=== PATIENT | male | born 1940 | race Caucasian/White ===

== ENCOUNTER 2017-12-30 08:33 | Inpatient (IN) | payer MEDICARE ==
[2017-12-30] MEDS ORDERED: Norepinephrine 8 MG/0.9% NS 250 ML ONE (08:39)
[2017-12-30 09:11] LABS: ALT (SGPT) 8 U/L (8-55); AST (SGOT) 13 U/L (5-34); Albumin 3.3 g/dL (3.4-4.8); Alkaline Phosphatase 51 U/L (40-150); Anion Gap 13 mmol/L (10-20); BUN (Urea Nitrogen) 18 mg/dL (8.4-25.7); Bilirubin, Total 0.7 mg/dL (0.2-1.2); Calc. Creatinine Clearance 0 mL/min (70-130); Calcium 8.4 mg/dL (7.8-10.44); Carbon Dioxide 24 mmol/L (23-31); Chloride 106 mmol/L (98-107); Estimated GFR-MDRD 75; Globulin 2.4 g/dL (2.4-3.5); Glucose 119 mg/dL (83-110); Hemoglobin 12.5 g/dL (14.0-18.0); Mean Corpuscular HGB CONC 34.1 g/dL (32.0-36.0); Mean Corpuscular Hemoglobin 31.6 pg (27.0-31.0); Mean Corpuscular Volume 92.6 fL (78.0-98.0); Mean Platelet Volume 6.9 fL (7.4-10.4); Platelet Count 214 thou/uL (130-400); Potassium 4.6 mmol/L (3.5-5.1); Protein, Total 5.7 g/dL (5.8-8.1); RBC Distribution Width 12.3 % (11.5-14.5); Red Blood Cell (RBC) Count 3.94 mill/uL (4.70-6.10); Sodium 138 mmol/L (136-145); White Blood Cell (WBC) Count 26.7 thou/uL (4.8-10.8)
[2017-12-30 09:13] LABS: Base Excess-Venous 2.4 mmol/L (0 (+/- 2.5)); Bicarbonate (HCO3v) 33.2 mmol/L (1.0-85.0); CO2 Tension (PvCO2) 85.4 mmHg (41.0-51.0); Calcium, Ionized 1.18 mmol/L (1.12-1.32); Hemoglobin - Calc 13.3 g/dL (12.0-18.0); O2 Tension (PvO2) 27.8 mmHg (35.0-45.0); Potassium 4.8 mmol/L (3.4-4.7); T. Carbon Dioxide 35.8 mmol/L (1.0-85.0); pH (Venous) 7.197 (7.35-7.45); vO2 Saturation-calc 36.5 % (94-98)
[2017-12-30 09:22] LABS: CKMB 1.5 ng/mL (0-6.6); Troponin I Less than 0.010 ng/mL (< 0.028)
[2017-12-30 09:29] LABS: Band 20 % (5-11); Eosinophils 6 % (0-10); Hypochromia SLIGHT = 6-15 cells (100X) (0-5/hpf); Lymphocytes 2 % (21-51); MDiff Complete? YES; Microcytosis SLIGHT = 6-15 cells (100X) (0-5/hpf); Monocytes 2 % (0-10); Neutrophil 70 % (42-75); PLT Morphology Comment Appears Adequate
[2017-12-30 09:29] LABS: Actual Bicarbonate (HCO3a) 21.4 mEq/L (22-28); Base Excess (BEa) -5.7 mEq/L (-2.0 to +3.0); CO2 Tension 48.3 mmHg (35.0-45.0); Carboxyhemoglobin (COHb) 0.4 gm% (0.0-3.0); Hemoglobin (Hb) 12.9 g/dL (14.0-18.0); O2 Tension (PaO2) 283.8 mmHg (> 70.0); pH, Arterial 7.26 (7.35-7.45)
[2017-12-30 09:30] LABS: ALV-art Gradient 368.825 (0-20); Analyzer IN Cardio ER; Potassium - ABG Lab 4.1 mmol/L (3.70-5.30); Puncture Site B
[2017-12-30] MEDS ORDERED: Vancomycin HCl 1 GM in Premix Bag 1 BAG IVPB SCH (10:00)
[2017-12-30 10:33] LABS: Bilirubin Negative (Negative); Blood, Urine Negative (Negative); Clarity CLEAR (Clear); Glucose, Urine (Dipstick) Negative (Negative); Leukocyte Negative (Negative); Nitrite Negative (Negative); Protein, Urine (Dipstick) Negative (Neg-Trace); Specific Gravity, Urine 1.024 (1.002-1.036); Urobilinogen 0.2 mg/dL (0.2-1.0)
[2017-12-30] MEDS ORDERED: Fentanyl 100 MCG/2 ML VIAL ONE ×2 (10:35→10:55)
[2017-12-30] MEDS ORDERED: fentaNYL Citrate/PF 2,000 MCG in Sodium Chloride 0.9% 60 ML IV SCH ×2 (10:40→12:24)
--- NOTE | 2017-12-30 10:42 | RAD ---
CHEST 1 VIEW: HISTORY: A 77-year-old male with a history of respiratory distress. FINDINGS: NG tube and endotracheal tubes were in position. There is bilateral vascular congestion with some in creased linear and interstitial markings bilaterally, possible small interstitial edema. No signific ant pleural effusion. No confluent pneumonia. IMPRESSION: Nasogastric tube and endotracheal tube in position. Bilateral vascular congestion and interstitial c hanges which could represent some chronic component or could represent some early acute interstitial edema or atypical pneumonitis. POS: [facility]
[2017-12-30] MEDS ORDERED: Cefepime 2 GM VIAL ONE (10:52)
[2017-12-30] MEDS ORDERED: Lorazepam 2 MG/ML VIAL ONE (10:59)
--- NOTE | 2017-12-30 11:36 | CT ---
BRAIN CT WITHOUT IV CONTRAST: HISTORY: A 77-year-old male with a history of respiratory distress and intubation. FINDINGS: Endotracheal tube in place. There is some mucus and minimal fluid in the posterior nasopharynx. The re is some mild atrophy and chronic white matter ischemic change. No mass or midline shift. No acut e hemorrhage. IMPRESSION: No significant acute intracranial process. No mass or bleed. POS: [facility]
[2017-12-30] MEDS ORDERED: Dextrose 50% Abboject 50 ML SYRINGE SLOW IVP PRN (11:40)
[2017-12-30] MEDS ORDERED: Dextrose 5% in Water 1,000 ML IV PRN (11:40)
[2017-12-30] MEDS ORDERED: VANCOMYCIN IVPB PRN (11:48)
--- NOTE | 2017-12-30 12:09 | CT ---
CERVICAL SPINE CT SCAN WITHOUT IV CONTRAST: HISTORY: A 77-year-old male with a history of neck injury, respiratory distress, and intubation. FINDINGS: NG tube and endotracheal tube are in place. There is some fluid or mucus within the posterior nasoph arynx. Multilevel disk-osteophytosis and facet arthrosis changes are noted, evidence for cervical sp ondylosis. No evidence for acute fracture or fact dislocation. Heterogeneous bone demineralization. Bilateral carotid artery calcified plaques in the neck. Approximately 2.2 cm diameter nodule in th e upper right lobe of the thyroid. IMPRESSION: Cervical spondylosis. No acute fracture or facet dislocation. A 2.2 cm diameter nodule in the upper right lobe of the thyroid. Bilateral carotid artery calcified plaques in the neck. POS: [facility]
[2017-12-30] MEDS ORDERED: Fentanyl BOLUS 250 ML IVPB PRN (12:24)
[2017-12-30] MEDS ORDERED: Propofol BOLUS 1,000 MG/100 ML VIAL IV PRN (12:24)
[2017-12-30] MEDS ORDERED: DISCONTINUE PREVIOUS NARCOTIC PAIN MEDICATIONS AND BENZODIAZEPINES FS SCH (12:24)
--- NOTE | 2017-12-30 13:05 | HP ---
DATE OF CONSULTATION: 12/30/2017 CHIEF COMPLAINT: Found down. HISTORY OF PRESENT ILLNESS: Patient is a 77-year-old male who has a remote history of alcohol abuse and drug abuse well over a decade ago who has a chronic underlying COPD which is oxygen dependent. Petty cloud generally uses 2 liters of nasal cannula oxygen at home. Yesterday, he was with his friend an d roommate playing golf. He was feeling more short of breath and required higher levels of oxygen. In the evening, when they got home, he was somewhat somnolent, still requiring the higher levels of t he oxygen. This morning, his roommate heard him gurgling and when he went in to check on him, he was on the floor wearing his CPAP mask, but it had pulled away from the connection and was not receiving any pressure or oxygen. He was unarousable, so he called EMS. On their arrival, the patient was "g uppy breathing" and gasping. They subsequently intubated the patient after giving him some sedation. He was then transported to the hospital. While here, he has had some hypotension and has required the use of a norepinephrine drip in order to maintain adequate blood pressures. He has actually come awake a bit and appears to be fairly interactive. EMS also reported blood pressure dropped while [facility] were transporting the patient. He did receive 2 liters of fluid resuscitation before pressors wer e initiated. Presently, his blood pressure is maintaining. Of note, the patient is unable to give a ny history because of his sedated status and most of the information has come from discussion with [facility] ER physician, the medical record and the patient's friend who has been his roommate for a number of years and knows the situation extremely well. REVIEW OF SYSTEMS: Not specifically obtainable, but the roommate indicates that he believes he has b een eating and drinking well. He has had no problems with his bowels or bladder other than he genera lly does tend toward constipation. PAST MEDICAL HISTORY: Notable for prostate cancer, obstructive sleep apnea, osteoarthritis, diabetes mellitus. He also reports that he thinks the patient has something enlarged in his neck, but he is not sure if it is a lymph node or gland. There is thyroid. PAST SURGICAL HISTORY: He has had lumbar spine surgery, cataractectomy, knee surgeries. FAMILY HISTORY: Unknown. SOCIAL HISTORY: The patient was a former smoker, has not smoked cigarettes in over a year. He is __ ___(00:00), but weaning down his nicotine concentrations. He has no alcohol use for the last 11 year s, but is prior to that an alcoholic and also has a prior drug user, but has not done any of that in over a decade as well. The patient does have a brother in [place] and his roommate is attempting to get the information so that we might be able to contact him. Nothing else is known about the moreno ent's code status. ALLERGIES: PENICILLIN. HOME MEDICATIONS: Unknown, but believed to be metformin. PHYSICAL EXAMINATION: VITAL SIGNS: Blood pressure was a low of 60/37, most recently at 110 systolic. Respirations steady at the vent, heart rate 60s. GENERAL APPEARANCE: The patient is sedated and intubated. HEENT: Pupils are constricted as oropharyngeal tube or ET tube rather endotracheal tube in place. NECK: Supple and symmetric. CARDIOVASCULAR: Regular, without murmurs. LUNGS: Generally clear anteriorly with faint scattered rales on the right. ABDOMEN: Soft, nondistended, positive bowel sounds. EXTREMITIES: Cool to touch with slightly diminished pulses, but he does have capillary refill. NEUROLOGIC: As stated, the patient is sedated. SKIN: Reveals a skin tear at the left elbow. He also has a small ecchymosis and abrasion on the pos terior right heel at the Achilles insertion. LABORATORY DATA: White count is 26.7, hemoglobin 12.5, platelets 214. Initial ABG 7.197, pCO2 of 85 .4, pO2 27.8. A repeat after intubation pH or after 20 minutes, pH is 7.26, pCO2 of 48.3, pO2 283. Sodium 138, potassium 4.6, chloride 106, CO2 24, BUN 18, creatinine 0.97, glucose 119. Lactic acid 2 .0, calcium 8.4, AST 13, ALT 8. BNP 226.5, albumin 3.3. Urinalysis is negative. Chest x-ray shows vascular congestion, interstitial changes which could represent chronic component or could represent some early acute interstitial edema or atypical pneumonitis. CT scan of the brain negative. CT of t he C-spine reportedly negative. Formal report is still pending. EKG [facility] IMPRESSION AND PLAN: 1. Acute respiratory failure with hypercapnia. The patient is intubated and will continue on ventil ator support. We will transfer to the ICU. Continue fentanyl drip for sedation. Consult Pulmonary Critical Care. 2. Chronic obstructive pulmonary disease. The patient will get nebulizer treatments and ventilator support. 3. Sepsis. Patient has a significantly elevated white blood cell count with respiratory failure, al though his lactic acid initially was not significantly elevated. He has been volume resuscitated and on pressors. We will cover with the vancomycin and cefepime and follow up cultures. 4. Diabetes mellitus by history. We will continue with Accu-Cheks and sliding scale insulin. 5. Disposition. We will try to get information on the patient's brother, so that we can contact him for any further decision making.
--- NOTE | 2017-12-30 13:12 | OP-2 ---
INDICATION: Hypotension, on pressors with peripheral line. PROCEDURE AIR CONDITIONING EQUIPMENT MECHANIC: Dr. Avinash Ibrahim, Dr. Livia Huffman. ATTENDING PHYSICIAN: Dr. Mckinney. Consent was obtained prior to the procedure from the patient's brother. Indications, risks, and benefits were explained at length. PROCEDURE SUMMARY: A timeout was performed. Hands were washed prior to the procedure. I wore surgical hat, mask, protective eyewear, full gown, and sterile gloves throughout the procedure. The patient was placed in Trendelenburg and left chest region and neck were prepped using chlorhexidine scrub and draped in a sterile fashion. The medial and lateral heads of the sternocleidomastoid muscles were identified, as was the carotid pulse. Internal jugular vein was identified using ultrasound. Anesthesia was achieved using local 1% lidocaine. Using real-time had a plain guidance, an introducer needle was inserted into the internal jugular vein under direct ultrasound visualization. Venous blood was withdrawn. The syringe was removed. The wire was fed through the syringe into the introducer needle. The guidewire was visualized in the internal jugular with ultrasound. A small incision was made at the surface of the skin with a scalpel and the introducer needle was exchanged for a dilator over the guidewire. After appropriate dilation was obtained, the dilator was exchanged over the wire for a 3-port central venous catheter. The wire was removed and the catheter was sutured in place at the hub. A sterile adaptive shield was placed over the catheter insertion site. The patient tolerated the procedure without any hemodynamic compromise. At the time of procedure completion, all ports were aspirated and flushed properly. Post-procedure with chest x-ray showed no pneumothorax and the tip of the catheter appropriately placed. ESTIMATED BLOOD LOSS: 15 mL. MTDD
[2017-12-30] MEDS: Sodium Chloride 0.9% 1,000 ML IV SCH (13:16)
--- NOTE | 2017-12-30 13:31 | RAD ---
FRONTAL RADIOGRAPH CHEST PORTABLE SUPINE: DATE: 12/30/17. TIME: 10:50 a.m. COMPARISON: 12/30/17 at 8:51 a.m. HISTORY: Central line placement. FINDINGS: Supine imaging provided, limiting assessment for pneumothorax and pleural fluid. The left costophren ic angle is incompletely imaged. A large portion of the right lung is not imaged either. Nasogastric tube and endotracheal tube in stable position. Left-sided vascular catheter present, dis kinga tip terminating over the expected location of the proximal SVC. There is atherosclerotic calcifi cation in the aortic arch. IMPRESSION: Lines and tubes as described above. POS: [facility]
[2017-12-30] MEDS ORDERED: Norepinephrine 8 MG/0.9% NS 250 ML IVPB SCH (14:00)
--- NOTE | 2017-12-30 15:35 | CON ---
DATE OF CONSULTATION: 12/30/2017 CONSULTING PHYSICIAN: Preston Wilkins M.D. REASON FOR CONSULTATION: Acute respiratory failure. The following encompassed 35 minutes critical care time. HISTORY OF PRESENT ILLNESS: The patient is a 77-year-old male who was apparently found somnolent at home. He was down on the floor wearing a CPAP mask. EMS was called. Apparently, he was hypotensive . He received fluid. He was intubated and placed on mechanical ventilation. He is now up in the CC U on the ventilator. He is now waking up and able to follow commands. PAST MEDICAL HISTORY: RAMOS, COPD, arthritis, diabetes mellitus, prostate cancer. PAST SURGICAL HISTORY: 1. Lumbar spine surgery 2. Cataract surgery. 3. Knee surgeries. REVIEW OF SYSTEMS: Cannot obtain as patient is intubated. FAMILY MEDICAL HISTORY: Unknown. SOCIAL HISTORY: Former smoker, quit over a year ago, has not used alcohol 11 years, formerly abused some type of substance. ALLERGIES: PENICILLIN. MEDICATIONS AT HOME: Unknown. PHYSICAL EXAMINATION: VITAL SIGNS: Temperature 97, O2 sat 100, pulse 62, blood pressure 134/57, currently on Levophed drip . NEUROLOGIC: He will wake up and follow commands with the hands and feet. HEENT: Remarkable for endotracheal tube present in the oropharynx. NECK: No adenopathy, no JVD. LUNGS: He has mild expiratory wheezing bilaterally. CARDIOVASCULAR: S1, S2 regular. ABDOMEN: Soft, nontender. EXTREMITIES: No clubbing, cyanosis or edema. GENITOURINARY: Normal. LABORATORY DATA: Sodium 143, potassium 4.8, chloride 103, CO2 24, BUN 18, creatinine 0.9, glucose 11 6. BNP 226, pH 7.26, pCO2 48, PO2 283, assist control rate 25, tidal volume 500, PEEP 5, pressure avitia pport 0, FIO2 25%. White cell count 26.7, hematocrit 36.5, platelet count 214. Urinalysis was negat teresa. His chest x-ray shows bilateral chronic interstitial changes. ET tube is in appropriate position. ASSESSMENT: 1. Acute respiratory failure requiring mechanical ventilation. 2. Chronic obstructive pulmonary disease with exacerbation contributing to the acute respiratory moncho lure. 3. Bilateral infiltrative changes versus chronic interstitial changes. 4. Elevated white blood cell count. RECOMMENDATIONS: 1. Continue mechanical ventilation. I have adjusted the settings and orders that he may have an inc reased exhaled time. 2. Increase nebulization frequency. 3. Wean off Levophed as tolerated. 4. Agree with volume infusion and volume infusion and the IV antibiotics. 5. I have added IV steroids.
[2017-12-30] MEDS: Budesonide 0.5 MG/2 ML NEB INH SCH (18:12)
[2017-12-30] MEDS: Lorazepam 2 MG/ML VIAL SLOW IVP PRN (19:43)
[2017-12-30] MEDS ORDERED: Vancomycin HCl 1 GM in Sodium Chloride 0.9% 250 ML 250 ML IVPB SCH (21:00)
[2017-12-31] MEDS: Cefepime 1 GM in Sodium Chloride 0.9% 100 ML IVPB SCH ×3 (00:28→23:59)
[2017-12-31] MEDS: Sodium Chloride 0.9% 1,000 ML IV SCH ×4 (00:30→20:47)
[2017-12-31] MEDS: Propofol 1,000 MG/100 ML VIAL IV PRN ×4 (02:53→20:46)
[2017-12-31 04:12] LABS: #Lymphocytes 0.9 thou/uL (1.20-3.40); #Monocytes 0.6 thou/uL (0.11-0.59); #Neutrophils 18.7 thou/uL (1.40-6.50); %Basophils 0.1 % (0.0-1.0); %Lymphocytes 4.4 % (21.0-51.0); %Monocytes 3.1 % (0.0-10.0); %Neutrophils 92.3 % (42.0-75.0); Hemoglobin 11.9 g/dL (14.0-18.0); Mean Corpuscular HGB CONC 35.3 g/dL (32.0-36.0); Mean Corpuscular Hemoglobin 32.5 pg (27.0-31.0); Mean Platelet Volume 6.9 fL (7.4-10.4); Platelet Count 176 thou/uL (130-400); RBC Distribution Width 12.3 % (11.5-14.5); Red Blood Cell (RBC) Count 3.66 mill/uL (4.70-6.10); White Blood Cell (WBC) Count 20.2 thou/uL (4.8-10.8)
[2017-12-31 04:28] LABS: ALT (SGPT) 8 U/L (8-55); AST (SGOT) 16 U/L (5-34); Albumin 3.2 g/dL (3.4-4.8); Alkaline Phosphatase 44 U/L (40-150); Anion Gap 13 mmol/L (10-20); BUN (Urea Nitrogen) 20 mg/dL (8.4-25.7); Bilirubin, Total 0.5 mg/dL (0.2-1.2); Calc. Creatinine Clearance 74 mL/min (70-130); Calcium 8.2 mg/dL (7.8-10.44); Carbon Dioxide 24 mmol/L (23-31); Chloride 104 mmol/L (98-107); Estimated GFR-MDRD Greater than 90; Globulin 2.8 g/dL (2.4-3.5); Glucose 153 mg/dL (83-110); Potassium 4.2 mmol/L (3.5-5.1); Sodium 137 mmol/L (136-145)
[2017-12-31] MEDS: Budesonide 0.5 MG/2 ML NEB INH SCH ×2 (05:59→18:12)
[2017-12-31 07:03] LABS: CO2 Tension 39.4 mmHg (35.0-45.0); pH, Arterial 7.38 (7.35-7.45)
[2017-12-31 07:04] LABS: Actual Bicarbonate (HCO3a) 22.9 mEq/L (22-28); Base Excess (BEa) -1.9 mEq/L (-2.0 to +3.0); Calcium, Ionized 1.14 mmol/L (1.12-1.30); Carboxyhemoglobin (COHb) 1.2 gm% (0.0-3.0); Hemoglobin (Hb) 13.2 g/dL (14.0-18.0); O2 Tension (PaO2) 66.5 mmHg (> 70.0); Potassium - ABG Lab 4.1 mmol/L (3.70-5.30)
[2017-12-31 07:05] LABS: Puncture Site RR
[2017-12-31] MEDS: Enoxaparin Sodium 40 MG/0.4 ML SYRINGE SC SCH (09:24)
[2017-12-31] MEDS: Pantoprazole 40 MG VIAL IVP SCH (09:25)
--- NOTE | 2017-12-31 09:42 | RAD ---
SEMIUPRIGHT PORTABLE CHEST: HISTORY: A 77-year-old male with a history of respiratory insufficiency. FINDINGS: Endotracheal tube, NG tube, and left central lines are noted in place. Scattered interstitial and li near parenchymal changes noted in the perihilar and infrahilar regions which are more prominent than on the 12/30/17 study raising concern for some subsegmental atelectasis or developing pneumonitis in th e bases. IMPRESSION: Developing bibasilar parenchymal changes since the prior study, evidence for bibasilar pneumonia or p neumonitis or partial atelectasis. POS: [facility]
[2017-12-31] MEDS ORDERED: Lorazepam 2 MG/ML VIAL SLOW IVP SCH (09:50)
[2017-12-31] MEDS: Lorazepam 2 MG/ML VIAL SLOW IVP PRN (09:54)
[2017-12-31] MEDS: Vancomycin HCl 1 GM in Premix Bag 1 BAG IVPB SCH (10:15)
--- NOTE | 2017-12-31 10:51 | PRG ---
DATE OF SERVICE: 12/31/2017 Thirty-five minutes critical care time. SUBJECTIVE: The patient remains intubated on mechanical ventilation. He can become extremely agitat ed at times. PHYSICAL EXAMINATION: VITAL SIGNS: Temperature is 97.8, pulse 77, blood pressure 155/60. A 24-hour intake 1928, output 12 10. HEENT: Unremarkable except for bitemporal wasting. NECK: No JVD. CHEST: Clear without wheezing or rhonchi. CARDIAC: S1 and S2 regular. ABDOMEN: Soft, nontender, nondistended. EXTREMITIES: No clubbing, cyanosis, or edema. LABORATORY DATA: Sodium 137, potassium 4.2, chloride 104, CO2 of 24, BUN 20, creatinine 0.7, glucose 153, pH 7.38, pCO2 of 39, pO2 of 66 on SIMV rate 20, tidal volume 400, PEEP 5, pressure support 10, FiO2 40%. White blood cell count 20, hematocrit 33.7, platelet count 176. X-RAY FINDINGS: The chest x-ray demonstrates perhaps a subtle infiltrate on the left side, very diff icult to . ASSESSMENT: 1. Acute hypoxic respiratory failure requiring mechanical ventilation. 2. Chronic obstructive pulmonary disease with exacerbation. 3. Question of concurrent pneumonia. PLAN: The patient is better. I think he is probably weanable. His Levophed has been stopped. I will plan to put him on CPAP and if he tolerates, go ahead and extubate him. He is continuing on I V antibiotics. I think we can go ahead and decrease his IV fluid rate.
[2017-12-31] MEDS: Nicotine 14 MG PATCH TD SCH (10:52)
[2017-12-31] MEDS: hydrALAZINE 20 MG/ML VIAL SLOW IVP PRN (11:21)
[2017-12-31] MEDS ORDERED: Propofol 1,000 MG/100 ML VIAL IV ONE (11:34)
[2017-12-31] MEDS ORDERED: Ventilator Sedation Protocol 1 EACH FS SCH (11:45)
[2017-12-31] MEDS ORDERED: Fentanyl BOLUS 250 ML IVPB PRN (11:56)
[2017-12-31] MEDS ORDERED: Propofol BOLUS 1,000 MG/100 ML VIAL IV PRN (11:56)
[2017-12-31] MEDS ORDERED: DISCONTINUE PREVIOUS NARCOTIC PAIN MEDICATIONS AND BENZODIAZEPINES FS SCH (11:56)
[2017-12-31] MEDS: HumaLOG 300 UNITS/3 ML VIAL SC PRN ×2 (12:02→18:13)
--- NOTE | 2017-12-31 12:02 | RAD ---
SUPINE FRONTAL CHEST RADIOGRAPH: DATE: 12/31/17. TIME: 11:53 a.m. COMPARISON: 12/31/17, 4:38 a.m. HISTORY: Re-intubated. Respiratory distress. FINDINGS: There is an endotracheal tube projecting over the tracheal air column in proper location just inferio r to the clavicular heads. Nasogastric tube and left vascular catheter again noted. Diffuse increas ed linear interstitial density noted with patchy areas of mild airspace disease suspected in the lung bases. Supine imaging limits assessment for pneumothorax. IMPRESSION: Lines and tubes as above. Extensive interstitial and alveolar opacity as above. POS: [facility]
--- NOTE | 2017-12-31 12:07 | PRG ---
DATE OF PROCEDURE: 12/31/2017 TIME: 11:44 a.m. The patient had to be reintubated, because of agitation that was refractory to sedation with Precedex and benzodiazepines. I intubated him with a 7.5 endotracheal tube with a GlideScope orally using pr opofol as the induction anesthetic agent. The tube was placed 23 cm at the lip. Placement was confi rmed by auscultation. The patient was placed back on sedation protocol. He was given IV thiamin and I suspect this is probably some degree of alcohol or other substance withdrawal.
[2017-12-31 13:30] LABS: CO2 Tension 38.8 mmHg (35.0-45.0)
[2017-12-31 13:31] LABS: Actual Bicarbonate (HCO3a) 23.6 mEq/L (22-28); Base Excess (BEa) -0.9 mEq/L (-2.0 to +3.0); Carboxyhemoglobin (COHb) 1.2 gm% (0.0-3.0); Hemoglobin (Hb) 12.9 g/dL (14.0-18.0); O2 Tension (PaO2) 53.4 mmHg (> 70.0); Potassium - ABG Lab 4.1 mmol/L (3.70-5.30)
[2017-12-31 13:32] LABS: Calcium, Ionized 1.13 mmol/L (1.12-1.30); Puncture Site RR
[2017-12-31] MEDS ORDERED: Norepinephrine 8 MG/0.9% NS 250 ML IVPB SCH (14:00)
--- NOTE | 2017-12-31 14:38 | PDOC.PN ---
- Subjective Encounter Start Date: 12/31/17 Encounter Start Time: 10:15 Patient was extubated prior to my exam. Patient was agitated and that crescendo 'd until he was tachycardic and tachypneic. BP was substantially elevated. His friend brought his home meds and there was nothing of significance that was relevant. He is on Librax, however. Low dose and looks like it might be a taper. His roommate maintains that he does not drink anymore and takes no drugs. He was given a nicotine patch and morphine with no effect. Hydralazine given for BP. No effect. Precedex gtt started and no improvement. Started to initiate Bipap, but Dr. Cook arrived and recommended reintubation. Subsequent to Diprivan and intubation, his vital signs stabilized. - Objective Resuscitation Status: Resuscitation Status FULL:Full Resuscitation Vital Signs & Weight: Vital Signs (12 hours) Temp Pulse Resp BP Pulse Ox 12/31/17 14:00 24 H 12/31/17 12:18 93 38 H 92 L 12/31/17 12:00 97 21 H 93/57 L 12/31/17 11:21 130 H 220/125 H 12/31/17 11:12 23 H 92 L 12/31/17 11:00 98.6 F 12/31/17 09:30 98 20 100 12/31/17 08:47 95 12/31/17 07:42 97.8 F 80 23 H 97 12/31/17 07:00 978.4 F H 12/31/17 06:00 66 147/64 H 12/31/17 05:58 66 21 H 98 12/31/17 04:10 61 12/31/17 04:09 61 20 98 12/31/17 04:00 98.2 F 20 Weight Admit Weight 137 lb 12.623 oz Weight 137 lb 12.623 oz Most Recent Monitor Data Heart Rate from ECG 72 NIBP 91/50 NIBP BP-Mean 61 Respiration from ECG 26 SpO2 96 I&O: 12/30/17 12/31/17 01/01/18 06:59 06:59 06:59 Intake Total 1929.2 380 Output Total 1210 678 Balance 719.2 -298 Result Diagrams: 12/31/17 03:30 12/31/17 03:30 Additional Labs: Accuchecks 12/31/17 12/31/17 12/30/17 11:59 00:34 18:37 POC Glucose 211 H 157 H 151 H Phys Exam - Physical Examination Constitutional: NAD Reintubated Respiratory: no wheezing, no rales Cardiovascular: RRR, no significant murmur Gastrointestinal: soft, no distention, positive bowel sounds Musculoskeletal: no edema Dx/Plan (1) Acute respiratory failure with hypercapnia Code(s): J96.02 - ACUTE RESPIRATORY FAILURE WITH HYPERCAPNIA Status: Acute Comment: Extubated. Very agitated. Symptoms resistent to treatment. Reintubated. (2) Agitation requiring sedation protocol Code(s): R45.1 - RESTLESSNESS AND AGITATION Status: Acute Comment: Failed doses of ativan, morphine and then Pecedex gtt. Reintubated and on Diprivan with good results. (3) COPD (chronic obstructive pulmonary disease) Status: Acute Comment: Nebs, steroids. (4) Diabetes mellitus Code(s): E11.9 - TYPE 2 DIABETES MELLITUS WITHOUT COMPLICATIONS Status: Acute Comment: accucheks and SSI. - Plan Maintain in ICU. Pulmonary/CC following. Continue to support with vent and treat COPD. Time in CC 37 min.
[2018-01-01 05:00] LABS: #Lymphocytes 0.8 thou/uL (1.20-3.40); #Monocytes 0.5 thou/uL (0.11-0.59); %Eosinophils 0.1 % (0.0-10.0); %Neutrophils 89.9 % (42.0-75.0); Hemoglobin 12.3 g/dL (14.0-18.0); Mean Corpuscular HGB CONC 33.9 g/dL (32.0-36.0); Mean Corpuscular Hemoglobin 31.2 pg (27.0-31.0); Mean Corpuscular Volume 91.9 fL (78.0-98.0); Mean Platelet Volume 7.4 fL (7.4-10.4); Platelet Count 191 thou/uL (130-400); RBC Distribution Width 12.6 % (11.5-14.5); Red Blood Cell (RBC) Count 3.96 mill/uL (4.70-6.10); White Blood Cell (WBC) Count 13.3 thou/uL (4.8-10.8)
[2018-01-01 05:05] LABS: ALT (SGPT) 12 U/L (8-55); AST (SGOT) 21 U/L (5-34); Albumin 3.1 g/dL (3.4-4.8); Alkaline Phosphatase 39 U/L (40-150); Anion Gap 11 mmol/L (10-20); BUN (Urea Nitrogen) 21 mg/dL (8.4-25.7); Bilirubin, Total 0.4 mg/dL (0.2-1.2); Calc. Creatinine Clearance 78 mL/min (70-130); Calcium 8.5 mg/dL (7.8-10.44); Carbon Dioxide 24 mmol/L (23-31); Chloride 106 mmol/L (98-107); Estimated GFR-MDRD Greater than 90; Glucose 166 mg/dL (83-110); Potassium 3.6 mmol/L (3.5-5.1); Protein, Total 6.1 g/dL (5.8-8.1); Sodium 137 mmol/L (136-145)
[2018-01-01] MEDS: Propofol 1,000 MG/100 ML VIAL IV PRN ×3 (05:58→20:48)
[2018-01-01] MEDS: Budesonide 0.5 MG/2 ML NEB INH SCH ×2 (06:34→19:16)
[2018-01-01 07:34] LABS: Actual Bicarbonate (HCO3a) 24.1 mEq/L (22-28); Base Excess (BEa) 0.7 mEq/L (-2.0 to +3.0); CO2 Tension 34.8 mmHg (35.0-45.0); Carboxyhemoglobin (COHb) 0.7 gm% (0.0-3.0); Hemoglobin (Hb) 12.4 g/dL (14.0-18.0); O2 Tension (PaO2) 92.8 mmHg (> 70.0); Potassium - ABG Lab 3.5 mmol/L (3.70-5.30); pH, Arterial 7.46 (7.35-7.45)
--- NOTE | 2018-01-01 08:34 | PRG ---
DATE OF SERVICE: 01/01/2018 Thirty-five minutes critical care time. SUBJECTIVE: The patient remains intubated on mechanical ventilation. He is sedated on propofol and Precedex. PHYSICAL EXAMINATION: VITAL SIGNS: His temperature is 97.2 with no fever overnight, pulse 56, blood pressure 140/69. A 24 -hour intake 2307, output 1758. NEUROLOGIC: He will move around when stimulated. HEENT: Pupils react. Sclerae are anicteric. Oropharynx clear. NECK: No JVD. LUNGS: Inspiratory crackles bilaterally. CARDIOVASCULAR: S1, S2, slightly bradycardic. ABDOMEN: Soft, nontender. EXTREMITIES: No edema. LABORATORY DATA: Sodium 137, potassium 3.6, chloride 106, CO2 24, BUN 21, creatinine 0.7, glucose 16 6, AST 21, ALT 12, albumin 3.1, pH 7.46, pCO2 34, pO2 of 92 on SIMV rate 12, tidal volume 500, PEEP 8 , pressure support 10, FiO2 60%. White blood cell count 13.3, hematocrit 36.4, platelet count 191. ASSESSMENT: 1. Acute respiratory failure requiring mechanical ventilation. 2. Chronic obstructive pulmonary disease with exacerbation. 3. Bilateral pneumonia - he has bilateral infiltrates on x-ray. I suspect he probably aspirated at home before he came in and did not show up until the x-ray done yesterday. 4. Encephalopathy with manic features. 5. Hyperglycemia. PLAN: 1. The patient will be started on enteral tube feeds. I have no plans to try to wean him at this ti me until he is over his encephalopathic/withdrawal type symptoms. 2. Start enteral tube feeds with diabetic tube formula. 3. Continue IV antibiotics. 4. Decrease IV steroids. 5. I will update his brother.
[2018-01-01] MEDS: Pantoprazole 40 MG VIAL IVP SCH (10:02)
[2018-01-01] MEDS: Lorazepam 2 MG/ML VIAL SLOW IVP PRN (10:02)
[2018-01-01] MEDS: Enoxaparin Sodium 40 MG/0.4 ML SYRINGE SC SCH (10:02)
[2018-01-01] MEDS: Vancomycin HCl 1 GM in Premix Bag 1 BAG IVPB SCH ×2 (10:03→21:33)
[2018-01-01 10:31] LABS: Vancomycin, Trough 7.2 ug/mL
[2018-01-01] MEDS: HumaLOG 300 UNITS/3 ML VIAL SC PRN (11:05)
[2018-01-01] MEDS: Cefepime 1 GM in Sodium Chloride 0.9% 100 ML IVPB SCH ×2 (12:48→23:22)
[2018-01-01] MEDS: Nicotine 14 MG PATCH TD SCH (12:49)
[2018-01-01] MEDS: Sodium Chloride 0.9% 1,000 ML IV SCH (13:01)
--- NOTE | 2018-01-01 14:08 | PQF ---
DATE: 01-01-18 ATTN: DR. ASIF SOSA Please exercise your independent, professional judgment in responding to the clarification form. Clinical indicators are provided on the bottom of this form for your review Please check appropriate box(s): [ xx ] Aspiration Pneumonia [ ] Empirically treating Gram Negative Pneumonia [ ] Other diagnosis [ ] Unable to determine In addition, please specify: Present on Admission (POA): [ x ] Yes [ ] No [ ] Unable to determine For continuity of documentation, please document condition throughout progress notes and discharge summary. Thank You. CLINICAL INDICATORS - SIGNS / SYMPTOMS / LABS ER: PT WAS FOUND DOWN ON GROUND WITH UNKNOWN DOWN TIME, HX COPD, AMS, FORMER SMOKER CONSULT NOTE DR. MEDINA 01-01-18: BILATERAL PNEUMONIA, HE HAS BILATERAL INFILTRATES ON X RAY. I SUSPECT HE PROBABLY ASPIRATED AT HOME BEFORE HE CAME IN AND DID NOT SHOW UP UNTIL THE XRAY DONE YESTERDAY TEMP: 12-30-17: 99.8 ER: 100.2, 100.2, 100.3, 100.4 WBC: 12-30-17: 26.7, 12-30-17: 20.2 01-01-18: 13.3 RISK FACTORS: H&P: COPD, SEPSIS, HX OF SMOKING TREATMENTS: 12-30-17: MAXIPIME, IVF PULMONARY CONSULT (This form is maintained as a part of the permanent medical record) 2014 [employer]. All Rights Reserved AQUILINO [email or web address] Office: [phone] [email or web address]
--- NOTE | 2018-01-01 21:46 | PDOC.PN ---
- Subjective Encounter Start Date: 01/01/18 Encounter Start Time: 13:45 Subjective: pt intubated - Objective Resuscitation Status: Resuscitation Status FULL:Full Resuscitation Vital Signs & Weight: Vital Signs (12 hours) Temp Pulse Resp BP Pulse Ox 01/01/18 20:00 98.5 F 20 01/01/18 19:19 98 01/01/18 19:17 60 01/01/18 19:16 98 01/01/18 15:14 59 L 143/63 H 01/01/18 15:13 60 16 96 01/01/18 12:00 97.7 F 20 01/01/18 10:32 59 L 147/69 H 01/01/18 10:31 55 L 13 97 01/01/18 10:00 28 H Weight Admit Weight 137 lb 12.623 oz Weight 137 lb 12.623 oz Most Recent Monitor Data Heart Rate from ECG 67 NIBP 150/73 NIBP BP-Mean 85 Respiration from ECG 17 SpO2 95 I&O: 12/31/17 01/01/18 01/02/18 06:59 06:59 06:59 Intake Total 1929.2 2307.7 Output Total 1210 1758 1010 Balance 719.2 549.7 -1010 Result Diagrams: 01/01/18 04:25 01/01/18 04:25 Additional Labs: Accuchecks 01/01/18 01/01/18 11:05 00:05 POC Glucose 178 H 157 H Phys Exam - Physical Examination Neck: no nodes, no JVD, supple, full ROM Respiratory: no wheezing, no rales, no rhonchi, wheezing present, clear to auscultation bilateral Cardiovascular: RRR, no significant murmur, no rub, gallop, irregular Dx/Plan (1) Acute respiratory failure with hypercapnia Code(s): J96.02 - ACUTE RESPIRATORY FAILURE WITH HYPERCAPNIA Status: Acute Comment: Extubated. Very agitated. Symptoms resistent to treatment. Reintubated. (2) Agitation requiring sedation protocol Code(s): R45.1 - RESTLESSNESS AND AGITATION Status: Acute Comment: Failed doses of ativan, morphine and then Pecedex gtt. Reintubated and on Diprivan with good results. (3) COPD (chronic obstructive pulmonary disease) Status: Acute Comment: Nebs, steroids. (4) Diabetes mellitus Code(s): E11.9 - TYPE 2 DIABETES MELLITUS WITHOUT COMPLICATIONS Status: Acute Comment: accucheks and SSI. (5) Alcohol abuse Code(s): F10.10 - ALCOHOL ABUSE, UNCOMPLICATED Status: Acute - Plan pt intubated -: continue abx for aspiration pneumonia * . Review of Systems - Review of Systems Other: unable to obtain - Medications/Allergies Allergies/Adverse Reactions: Allergies Allergy/AdvReac Type Severity Reaction Status Date / Time Penicillins Allergy Verified 12/30/17 09:59 Medications: Current Medications Albuterol/Ipratropium (Duoneb) 3 ml NEB [id number] [facility] Last Admin: 01/01/18 19:16 Dose: 3 ml Budesonide (Pulmicort Neb Solution) 0.5 mg INH BID-RT [facility] Last Admin: 01/01/18 19:16 Dose: 0.5 mg Dextrose/Water (Dextrose 50%) 25 gm SLOW IVP PRN PRN PRN Reason: Hypoglycemia Enoxaparin Sodium (Lovenox) 40 mg SC 0900 [facility] Last Admin: 01/01/18 10:02 Dose: 40 mg Glucagon (Glucagon) 1 mg IM PRN PRN PRN Reason: Hypoglycemia Hydralazine HCl (Apresoline) 10 mg SLOW IVP Q4H PRN PRN Reason: Hypertension Last Admin: 12/31/17 11:21 Dose: 10 mg Cefepime HCl 1 gm/ Sodium (Chloride) 100 mls @ 200 mls/hr IVPB 1200,2359 [facility] Last Admin: 01/01/18 12:48 Dose: 100 mls Dextrose/Water (D5w) 1,000 mls @ 0 mls/hr IV .Q0M PRN PRN Reason: Hypoglycemia Sodium Chloride (Normal Saline 0.9%) 1,000 mls @ 70 mls/hr IV .[id number] [facility] Last Admin: 01/01/18 13:01 Dose: 1,000 mls Dexmedetomidine HCl 200 mcg/ (Sodium Chloride) 50 mls @ 0 mls/hr IVPB INF [facility]; Protocol Last Admin: 01/01/18 20:39 Dose: 50 mls Thiamine HCl 100 mg/ Sodium (Chloride) 51 mls @ 100 mls/hr IVPB 1200 [facility] Last Admin: 01/01/18 13:20 Dose: 51 mls Fentanyl Citrate 2,000 mcg/ (Sodium Chloride) 100 mls @ 0 mls/hr IV INF [facility]; Protocol Stop: 01/30/18 11:56 Fentanyl Citrate (Fentanyl Bolus) 250 mls @ 0 mls/hr IVPB PRN PRN PRN Reason: Breakthrough pain/agitation Stop: 01/30/18 11:56 Norepinephrine Bitartrate (Levophed) 250 mls @ 0 mls/hr IVPB INF [facility]; Protocol Last Admin: 12/31/17 14:37 Dose: 250 mls Vancomycin HCl 1 gm/ Device 200 mls @ 200 mls/hr IVPB 1000,2200 [facility] Last Admin: 01/01/18 21:33 Dose: 200 mls Insulin Human Lispro (Humalog) 0 units SC .MILD SLIDING SCALE PRN PRN Reason: Mild Correctional Scale Last Admin: 01/01/18 11:05 Dose: 2 unit Lorazepam (Ativan) 2 mg SLOW IVP Q1H PRN PRN Reason: Breakthrough agitation Stop: 01/30/18 11:56 Last Admin: 01/01/18 10:02 Dose: 2 mg Methylprednisolone Sodium Succinate (Solu-Medrol) 30 mg IVP Q6HR [facility] Last Admin: 01/01/18 18:42 Dose: 30 mg Miscellaneous Medication (Pharmacy To Dose) 1 each IVPB PRN PRN PRN Reason: Pharmacy to dose Morphine Sulfate (Morphine Sulfate) 2 mg SLOW IVP Q1H PRN PRN Reason: BREAKTHROUGH PAIN/AGITATION Stop: 01/30/18 11:56 Nicotine (Nicoderm Patch) 14 mg TD 1200 [facility] Last Admin: 01/01/18 12:49 Dose: 14 mg Discontinue Previous Narcotic Pain Medications And Benzodiazepines 1 each FS .ONE [facility] Stop: 01/30/18 11:56 Pantoprazole Sodium (Protonix) 40 mg IVP DAILY [facility] Last Admin: 01/01/18 10:02 Dose: 40 mg Propofol (Diprivan) 1,000 mg IV INF PRN; Protocol PRN Reason: TO ACHIEVE GOAL RASS Stop: 01/30/18 11:56 Last Admin: 01/01/18 20:48 Dose: 1,000 mg Propofol (Diprivan Bolus) 20 mg IV Q5MIN PRN PRN Reason: BREAKTHROUGH AGITATION Stop: 01/30/18 11:56 Sodium Chloride (Flush - Normal Saline) 10 ml IVF Q12HR [facility] Last Admin: 01/01/18 21:33 Dose: 10 ml Sodium Chloride (Flush - Normal Saline) 10 ml IVF PRN PRN PRN Reason: Saline Flush
[2018-01-02] MEDS: Propofol 1,000 MG/100 ML VIAL IV PRN ×3 (05:30→17:45)
[2018-01-02] MEDS: Sodium Chloride 0.9% 1,000 ML IV SCH ×2 (05:39→17:47)
[2018-01-02 05:57] LABS: #Lymphocytes 0.5 thou/uL (1.20-3.40); #Monocytes 0.4 thou/uL (0.11-0.59); %Eosinophils 0.1 % (0.0-10.0); %Monocytes 4.1 % (0.0-10.0); %Neutrophils 90.8 % (42.0-75.0); Hemoglobin 12.8 g/dL (14.0-18.0); Mean Corpuscular HGB CONC 34.7 g/dL (32.0-36.0); Mean Corpuscular Hemoglobin 31.5 pg (27.0-31.0); Mean Corpuscular Volume 90.9 fL (78.0-98.0); Mean Platelet Volume 7.6 fL (7.4-10.4); Platelet Count 217 thou/uL (130-400); RBC Distribution Width 12.6 % (11.5-14.5); Red Blood Cell (RBC) Count 4.05 mill/uL (4.70-6.10); White Blood Cell (WBC) Count 9.9 thou/uL (4.8-10.8)
[2018-01-02 06:10] LABS: ALT (SGPT) 13 U/L (8-55); AST (SGOT) 15 U/L (5-34); Albumin 3.1 g/dL (3.4-4.8); Alkaline Phosphatase 36 U/L (40-150); Anion Gap 10 mmol/L (10-20); BUN (Urea Nitrogen) 18 mg/dL (8.4-25.7); Bilirubin, Total 0.4 mg/dL (0.2-1.2); Calc. Creatinine Clearance 79 mL/min (70-130); Calcium 8.3 mg/dL (7.8-10.44); Carbon Dioxide 25 mmol/L (23-31); Chloride 109 mmol/L (98-107); Estimated GFR-MDRD Greater than 90; Globulin 2.8 g/dL (2.4-3.5); Glucose 206 mg/dL (83-110); Potassium 3.2 mmol/L (3.5-5.1); Protein, Total 5.9 g/dL (5.8-8.1); Sodium 141 mmol/L (136-145)
[2018-01-02] MEDS: Budesonide 0.5 MG/2 ML NEB INH SCH ×2 (08:02→18:27)
[2018-01-02] MEDS ORDERED: Pancrelipase DR 12000 1 CAP PER TUBE PRN (10:31)
[2018-01-02] MEDS ORDERED: Sodium Bicarbonate Tab 325 MG TAB PER TUBE PRN (10:32)
--- NOTE | 2018-01-02 11:23 | PRG ---
DATE OF SERVICE: 01/02/2018 Thirty-five minutes critical care time. Mr. Lombardi remains intubated on mechanical ventilation. There have been no acute change to his condi tion overnight. He is requiring a Precedex drip and propofol for sedation. PHYSICAL EXAMINATION: VITAL SIGNS: His pulse is 65, blood pressure 125/48, O2 sat 95%, respiratory rate 26. HEENT: Unremarkable. NECK: No adenopathy or JVD. LUNGS: Crackles in both bases. CARDIOVASCULAR: S1, S2 regular. ABDOMEN: Soft, nontender. EXTREMITIES: No edema. LABORATORY DATA: PH 7.45, pCO2 of 33, pO2 of 66. His potassium level on his ABG was 3.1. Of note, laboratory data is not fully available at the time of this dictation because the [facility] system is down. His current ventilator settings are SIMV rate 12, tidal volume 500, PEEP 8, pressure support 10, FiO2 35%. ASSESSMENT: 1. Chronic obstructive pulmonary disease exacerbation. 2. Presumed drug withdrawal. 3. Respiratory failure requiring mechanical ventilation. PLAN: Hopefully, we will be able to wean the patient's sedation soon. For the time being his mechan ical ventilation settings are appropriate. He is starting tube feeds. Further disposition to follow .
--- NOTE | 2018-01-02 11:24 | RAD ---
PORTABLE CHEST: Date: 01-02-18 Provided Clinical History: Respiratory insufficiency. FINDINGS: Comparison 12-31-17 Cardiac and mediastinal silhouette is unchanged in appearance. Left sided central line, endotracheal tube and partially visualized enteric catheter appear in similar positions. Bibasilar patchy parenchy mal opacities are noted. There is no pleural fluid or pneumothorax apparent. IMPRESSION: Stable radiographic appearance of the chest. POS: [facility]
[2018-01-02 11:34] LABS: pH, Arterial 7.45 (7.35-7.45)
[2018-01-02 11:35] LABS: Actual Bicarbonate (HCO3a) 22.7 mEq/L (22-28); Base Excess (BEa) -0.6 mEq/L (-2.0 to +3.0); CO2 Tension 33.3 mmHg (35.0-45.0); Calcium, Ionized 1.17 mmol/L (1.12-1.30); Carboxyhemoglobin (COHb) 0.7 gm% (0.0-3.0); Hemoglobin (Hb) 13.2 g/dL (14.0-18.0); O2 Tension (PaO2) 65.5 mmHg (> 70.0); Potassium - ABG Lab 3.12 mmol/L (3.70-5.30)
[2018-01-02 11:36] LABS: ALV-art Gradient 142.425 (0-20); Puncture Site RRA
[2018-01-02] MEDS: Enoxaparin Sodium 40 MG/0.4 ML SYRINGE SC SCH (11:57)
[2018-01-02] MEDS: Pantoprazole 40 MG VIAL IVP SCH (11:57)
[2018-01-02] MEDS: Vancomycin HCl 1 GM in Premix Bag 1 BAG IVPB SCH ×2 (11:58→22:23)
[2018-01-02] MEDS: Cefepime 1 GM in Sodium Chloride 0.9% 100 ML IVPB SCH ×2 (12:17→23:54)
[2018-01-02] MEDS: Nicotine 14 MG PATCH TD SCH (12:17)
[2018-01-02] MEDS: Lorazepam 2 MG/ML VIAL SLOW IVP PRN (12:18)
--- NOTE | 2018-01-02 14:10 | PDOC.PN ---
- Subjective Encounter Start Date: 01/02/18 Encounter Start Time: 10:30 Subjective: pt awake intubated - Objective Resuscitation Status: Resuscitation Status FULL:Full Resuscitation Vital Signs & Weight: Vital Signs (12 hours) Temp Pulse Resp Pulse Ox 01/02/18 14:00 25 H 01/02/18 13:05 62 01/02/18 12:00 98.6 F 20 01/02/18 10:00 25 H 01/02/18 08:00 98.4 F 85 25 H 01/02/18 07:00 98.4 F 01/02/18 04:00 97.7 F 01/02/18 02:59 60 97 Weight Admit Weight 137 lb 12.623 oz Weight 137 lb 12.623 oz Most Recent Monitor Data Heart Rate from ECG 61 NIBP 145/64 NIBP BP-Mean 110 Respiration from ECG 24 SpO2 98 I&O: 01/01/18 01/02/18 01/03/18 06:59 06:59 06:59 Intake Total 2307.7 1176 60 Output Total 1758 1390 925 Balance 549.7 214 865 Result Diagrams: 01/02/18 05:40 01/02/18 05:40 Additional Labs: Accuchecks 01/01/18 21:31 POC Glucose 183 H Phys Exam - Physical Examination Neck: no nodes, no JVD, supple, full ROM Respiratory: no wheezing, no rales, no rhonchi, wheezing present, clear to auscultation bilateral Cardiovascular: RRR, no significant murmur, no rub, gallop, irregular Gastrointestinal: soft, non-tender, positive bowel sounds did follow some commands Dx/Plan (1) Acute respiratory failure with hypercapnia Code(s): J96.02 - ACUTE RESPIRATORY FAILURE WITH HYPERCAPNIA Status: Acute Comment: Extubated. Very agitated. Symptoms resistent to treatment. Reintubated. (2) Agitation requiring sedation protocol Code(s): R45.1 - RESTLESSNESS AND AGITATION Status: Acute Comment: Failed doses of ativan, morphine and then Pecedex gtt. Reintubated and on Diprivan with good results. (3) COPD (chronic obstructive pulmonary disease) Status: Acute Comment: Nebs, steroids. (4) Diabetes mellitus Code(s): E11.9 - TYPE 2 DIABETES MELLITUS WITHOUT COMPLICATIONS Status: Acute Comment: accucheks and SSI. (5) Alcohol abuse Code(s): F10.10 - ALCOHOL ABUSE, UNCOMPLICATED Status: Acute - Plan will continue abx -: pt more awake follows some commands -: will continue abx * . Review of Systems - Review of Systems Other: unable to obtain - Medications/Allergies Allergies/Adverse Reactions: Allergies Allergy/AdvReac Type Severity Reaction Status Date / Time Penicillins Allergy Verified 12/30/17 09:59 Medications: Current Medications Albuterol/Ipratropium (Duoneb) 3 ml NEB [id number] [facility] Last Admin: 01/02/18 09:50 Dose: 3 ml Lipase/Protease/Amylase ([place] [id number]) 1 cap PER TUBE ASDIR PRN PRN Reason: TUBE OCCLUSION [place] Budesonide (Pulmicort Neb Solution) 0.5 mg INH BID-RT [facility] Last Admin: 01/02/18 08:02 Dose: 0.5 mg Dextrose/Water (Dextrose 50%) 25 gm SLOW IVP PRN PRN PRN Reason: Hypoglycemia Enoxaparin Sodium (Lovenox) 40 mg SC 0900 [facility] Last Admin: 01/02/18 11:57 Dose: Not Given Glucagon (Glucagon) 1 mg IM PRN PRN PRN Reason: Hypoglycemia Hydralazine HCl (Apresoline) 10 mg SLOW IVP Q4H PRN PRN Reason: Hypertension Last Admin: 12/31/17 11:21 Dose: 10 mg Cefepime HCl 1 gm/ Sodium (Chloride) 100 mls @ 200 mls/hr IVPB 1200,2359 [facility] Last Admin: 01/02/18 12:17 Dose: 100 mls Dextrose/Water (D5w) 1,000 mls @ 0 mls/hr IV .Q0M PRN PRN Reason: Hypoglycemia Sodium Chloride (Normal Saline 0.9%) 1,000 mls @ 70 mls/hr IV .[id number] [facility] Last Admin: 01/02/18 05:39 Dose: Not Given Dexmedetomidine HCl 200 mcg/ (Sodium Chloride) 50 mls @ 0 mls/hr IVPB INF [facility]; Protocol Last Admin: 01/02/18 13:19 Dose: 50 mls Thiamine HCl 100 mg/ Sodium (Chloride) 51 mls @ 100 mls/hr IVPB 1200 [facility] Last Admin: 01/02/18 12:17 Dose: 51 mls Fentanyl Citrate 2,000 mcg/ (Sodium Chloride) 100 mls @ 0 mls/hr IV INF [facility]; Protocol Stop: 01/30/18 11:56 Fentanyl Citrate (Fentanyl Bolus) 250 mls @ 0 mls/hr IVPB PRN PRN PRN Reason: Breakthrough pain/agitation Stop: 01/30/18 11:56 Norepinephrine Bitartrate (Levophed) 250 mls @ 0 mls/hr IVPB INF [facility]; Protocol Last Admin: 12/31/17 14:37 Dose: 250 mls Vancomycin HCl 1 gm/ Device 200 mls @ 200 mls/hr IVPB 1000,2200 [facility] Last Admin: 01/02/18 11:58 Dose: Not Given Insulin Human Lispro (Humalog) 0 units SC .MILD SLIDING SCALE PRN PRN Reason: Mild Correctional Scale Last Admin: 01/01/18 11:05 Dose: 2 unit Lorazepam (Ativan) 2 mg SLOW IVP Q1H PRN PRN Reason: Breakthrough agitation Stop: 01/30/18 11:56 Last Admin: 01/02/18 12:18 Dose: 2 mg Methylprednisolone Sodium Succinate (Solu-Medrol) 30 mg IVP Q6HR [facility] Last Admin: 01/02/18 12:17 Dose: 30 mg Miscellaneous Medication (Pharmacy To Dose) 1 each IVPB PRN PRN PRN Reason: Pharmacy to dose Morphine Sulfate (Morphine Sulfate) 2 mg SLOW IVP Q1H PRN PRN Reason: BREAKTHROUGH PAIN/AGITATION Stop: 01/30/18 11:56 Nicotine (Nicoderm Patch) 14 mg TD 1200 [facility] Last Admin: 01/02/18 12:17 Dose: 14 mg Discontinue Previous Narcotic Pain Medications And Benzodiazepines 1 each FS .ONE [facility] Stop: 01/30/18 11:56 Pantoprazole Sodium (Protonix) 40 mg IVP DAILY [facility] Last Admin: 01/02/18 11:57 Dose: Not Given Propofol (Diprivan) 1,000 mg IV INF PRN; Protocol PRN Reason: TO ACHIEVE GOAL RASS Stop: 01/30/18 11:56 Last Admin: 01/02/18 12:34 Dose: 1,000 mg Propofol (Diprivan Bolus) 20 mg IV Q5MIN PRN PRN Reason: BREAKTHROUGH AGITATION Stop: 01/30/18 11:56 Sodium Bicarbonate (Bicarbonate, Sodium) 650 mg PER TUBE ASDIR PRN PRN Reason: TUBE OCCLUSION TX Sodium Chloride (Flush - Normal Saline) 10 ml IVF Q12HR [facility] Last Admin: 01/02/18 11:58 Dose: Not Given Sodium Chloride (Flush - Normal Saline) 10 ml IVF PRN PRN PRN Reason: Saline Flush
[2018-01-02] MEDS: HumaLOG 300 UNITS/3 ML VIAL SC PRN ×2 (15:42→21:26)
[2018-01-02 21:50] LABS: Vancomycin, Trough 18.3 ug/mL
[2018-01-03] MEDS: Lorazepam 2 MG/ML VIAL SLOW IVP PRN ×5 (01:20→21:35)
[2018-01-03] MEDS: Propofol 1,000 MG/100 ML VIAL IV PRN ×4 (04:33→23:52)
[2018-01-03] MEDS: Sodium Chloride 0.9% 1,000 ML IV SCH ×3 (05:42→23:50)
[2018-01-03] MEDS: HumaLOG 300 UNITS/3 ML VIAL SC PRN ×4 (05:46→23:52)
[2018-01-03 06:07] LABS: #Lymphocytes 0.5 thou/uL (1.20-3.40); #Monocytes 0.5 thou/uL (0.11-0.59); #Neutrophils 9.2 thou/uL (1.40-6.50); %Eosinophils 0.1 % (0.0-10.0); %Lymphocytes 5.1 % (21.0-51.0); %Monocytes 4.8 % (0.0-10.0); Hemoglobin 12.4 g/dL (14.0-18.0); Mean Corpuscular HGB CONC 35.7 g/dL (32.0-36.0); Mean Corpuscular Hemoglobin 32.4 pg (27.0-31.0); Mean Platelet Volume 7.1 fL (7.4-10.4); Platelet Count 205 thou/uL (130-400); RBC Distribution Width 12.8 % (11.5-14.5); Red Blood Cell (RBC) Count 3.81 mill/uL (4.70-6.10); White Blood Cell (WBC) Count 10.2 thou/uL (4.8-10.8)
[2018-01-03 06:33] LABS: ALT (SGPT) 13 U/L (8-55); AST (SGOT) 12 U/L (5-34); Albumin 3.1 g/dL (3.4-4.8); Alkaline Phosphatase 40 U/L (40-150); Anion Gap 10 mmol/L (10-20); BUN (Urea Nitrogen) 20 mg/dL (8.4-25.7); Bilirubin, Total 0.4 mg/dL (0.2-1.2); Calc. Creatinine Clearance 72 mL/min (70-130); Calcium 8.2 mg/dL (7.8-10.44); Carbon Dioxide 27 mmol/L (23-31); Chloride 110 mmol/L (98-107); Estimated GFR-MDRD Greater than 90; Globulin 2.7 g/dL (2.4-3.5); Glucose 225 mg/dL (83-110); Potassium 3.1 mmol/L (3.5-5.1); Protein, Total 5.8 g/dL (5.8-8.1); Sodium 144 mmol/L (136-145)
[2018-01-03] MEDS: Budesonide 0.5 MG/2 ML NEB INH SCH ×2 (07:12→18:24)
[2018-01-03 07:19] LABS: Actual Bicarbonate (HCO3a) 22.3 mEq/L (22-28); Base Excess (BEa) -0.7 mEq/L (-2.0 to +3.0); Carboxyhemoglobin (COHb) 1.4 gm% (0.0-3.0); O2 Tension (PaO2) 82.9 mmHg (> 70.0); Potassium - ABG Lab 2.97 mmol/L (3.70-5.30); pH, Arterial 7.46 (7.35-7.45)
[2018-01-03 07:20] LABS: Calcium, Ionized 1.15 mmol/L (1.12-1.30); Puncture Site RRA
--- NOTE | 2018-01-03 09:05 | RAD ---
CHEST 1 VIEW: HISTORY: Ventilated patient. Respiratory distress. COMPARISON: 01/02/18. FINDINGS: Redemonstration of endotracheal and nasogastric tubes. Stable left-sided internal jugular central ve nous catheter. Normal cardiac silhouette. There is atherosclerosis of the aorta. Chronic change of the lung parenchyma. No consolidation or mass. No pneumothorax or osseous abnormalities. IMPRESSION: No significant interval change. POS: [facility]
[2018-01-03 09:27] LABS: HIV (1/2) Antibody/Antigen Non-Reactive (NonReactive); HIV 1/2 INDEX 0.14 S/CO (<1.00)
[2018-01-03] MEDS: Enoxaparin Sodium 40 MG/0.4 ML SYRINGE SC SCH (09:48)
[2018-01-03] MEDS: Vancomycin HCl 1 GM in Premix Bag 1 BAG IVPB SCH ×2 (09:48→21:00)
[2018-01-03] MEDS: Pantoprazole 40 MG VIAL IVP SCH (09:48)
[2018-01-03] MEDS: Ziprasidone 60 MG CAP PER TUBE SCH (09:49)
[2018-01-03] MEDS: Valproate Sodium 250 mg/5 ml UD Cup PER TUBE SCH ×3 (09:49→21:01)
--- NOTE | 2018-01-03 09:54 | PRG ---
DATE OF SERVICE: 01/03/2018 Thirty-five minutes critical care time. Mr. Lombardi is extremely agitated and this is despite getting propofol and Precedex. PHYSICAL EXAMINATION: VITAL SIGNS: Temperature 97.9, pulse 71, blood pressure 151/63, 24-hour intake 3584, output 1527. NEUROLOGIC: He moves around. He will follow some commands. HEENT: Pupils react. Sclerae icteric. Oropharynx clear. NECK: No JVD. LUNGS: Crackles. CARDIAC: S1, S2, slightly tachycardic. No murmur. ABDOMEN: Soft, nontender. EXTREMITIES: No clubbing, cyanosis, or edema. His chest x-ray shows a slightly turned film. The infiltrative changes appear better than before. LABORATORY DATA: ABG -- pH 7.46, pCO2 of 32, pO2 of 83, that is on SIMV rate 12, tidal volume 500, P EEP 8, pressure 10, FiO2 35%. Sodium 144, potassium 3.1, chloride 110, CO2 27, BUN 20, creatinine 0. 7, glucose 225. White blood cell count 10.2, hematocrit 34.7, platelet count 205. ASSESSMENT: 1. Profound encephalopathy with manic features. This suggests that he may be withdrawing from somet priya. He has a very sketchy history and his partner will not tell us much information that is helpfu l. 2. Chronic obstructive pulmonary disease exacerbation. 3. Possible aspiration pneumonia. 4. Acute respiratory failure requiring mechanical ventilation. PLAN: 1. I will start the patient on a Versed drip. We will stop the Precedex. 2. He probably needs a fentanyl drip also in case he is withdrawing from narcotics. 3. Continue IV antibiotics. 4. He is not weanable until we get his jan under better control. 5. Add Depakote and Geodon. The above encompassed 35 minutes critical care time.
[2018-01-03] MEDS: Nicotine 14 MG PATCH TD SCH (11:27)
[2018-01-03] MEDS: Cefepime 1 GM in Sodium Chloride 0.9% 100 ML IVPB SCH ×2 (11:28→23:51)
--- NOTE | 2018-01-03 15:58 | PDOC.PN ---
- Subjective Encounter Start Date: 01/03/18 Encounter Start Time: 09:30 Subjective: pt intubated - Objective Resuscitation Status: Resuscitation Status FULL:Full Resuscitation Vital Signs & Weight: Vital Signs (12 hours) Temp Pulse Resp 01/03/18 15:00 97.7 F 01/03/18 14:47 111 H 01/03/18 14:00 26 H 01/03/18 13:18 100 01/03/18 13:00 98.1 F 01/03/18 12:00 39 H 01/03/18 11:00 98.6 F 01/03/18 10:50 102 H 01/03/18 10:00 33 H 01/03/18 08:00 97.5 F L 78 43 H 01/03/18 07:13 78 01/03/18 07:00 97.5 F L 01/03/18 06:00 26 H 01/03/18 04:00 97.9 F 24 H Weight Admit Weight 137 lb 12.623 oz Weight 137 lb 12.623 oz Most Recent Monitor Data Heart Rate from ECG 112 NIBP 168/79 NIBP BP-Mean 97 Respiration from ECG 12 SpO2 96 I&O: 01/02/18 01/03/18 01/04/18 06:59 06:59 06:59 Intake Total 1176 3584.9 136 Output Total 1390 1527 2120 Balance -214 7.9 -1983 Result Diagrams: 01/03/18 03:30 01/03/18 03:30 Additional Labs: Accuchecks 01/03/18 01/03/18 01/03/18 15:03 08:32 05:46 POC Glucose 155 H 169 H 244 H 01/02/18 21:24 POC Glucose 203 H Phys Exam - Physical Examination Neck: no nodes, no JVD, supple, full ROM Respiratory: no wheezing, no rales, no rhonchi, wheezing present, clear to auscultation bilateral Cardiovascular: RRR, no significant murmur, no rub, gallop, irregular Gastrointestinal: soft, non-tender, no distention, positive bowel sounds Dx/Plan (1) Acute respiratory failure with hypercapnia Code(s): J96.02 - ACUTE RESPIRATORY FAILURE WITH HYPERCAPNIA Status: Acute Comment: Extubated. Very agitated. Symptoms resistent to treatment. Reintubated. (2) Agitation requiring sedation protocol Code(s): R45.1 - RESTLESSNESS AND AGITATION Status: Acute Comment: Failed doses of ativan, morphine and then Pecedex gtt. Reintubated and on Diprivan with good results. (3) COPD (chronic obstructive pulmonary disease) Status: Acute Comment: Nebs, steroids. (4) Diabetes mellitus Code(s): E11.9 - TYPE 2 DIABETES MELLITUS WITHOUT COMPLICATIONS Status: Acute Comment: accucheks and SSI. (5) Alcohol abuse Code(s): F10.10 - ALCOHOL ABUSE, UNCOMPLICATED Status: Acute - Plan pt off sedation was very agitated per nursing -: pt has been put on meds. No sure if this is withdrawal -: Pt's roomate does not disclose much information -: will continue iv abx for aspiration pna * . Review of Systems - Review of Systems Other: unable to perform - Medications/Allergies Allergies/Adverse Reactions: Allergies Allergy/AdvReac Type Severity Reaction Status Date / Time Penicillins Allergy Verified 12/30/17 09:59 Medications: Current Medications Albuterol/Ipratropium (Duoneb) 3 ml NEB A1HC-PC [facility] Last Admin: 01/03/18 14:47 Dose: 3 ml Lipase/Protease/Amylase ([place] [id number]) 1 cap PER TUBE ASDIR PRN PRN Reason: TUBE OCCLUSION [place] Budesonide (Pulmicort Neb Solution) 0.5 mg INH BID-RT [facility] Last Admin: 01/03/18 07:12 Dose: 0.5 mg Dextrose/Water (Dextrose 50%) 25 gm SLOW IVP PRN PRN PRN Reason: Hypoglycemia Enoxaparin Sodium (Lovenox) 40 mg SC 0900 [facility] Last Admin: 01/03/18 09:48 Dose: 40 mg Glucagon (Glucagon) 1 mg IM PRN PRN PRN Reason: Hypoglycemia Hydralazine HCl (Apresoline) 10 mg SLOW IVP Q4H PRN PRN Reason: Hypertension Last Admin: 12/31/17 11:21 Dose: 10 mg Cefepime HCl 1 gm/ Sodium (Chloride) 100 mls @ 200 mls/hr IVPB 1200,2359 [facility] Last Admin: 01/03/18 11:28 Dose: 100 mls Dextrose/Water (D5w) 1,000 mls @ 0 mls/hr IV .Q0M PRN PRN Reason: Hypoglycemia Sodium Chloride (Normal Saline 0.9%) 1,000 mls @ 70 mls/hr IV .[id number] [facility] Last Admin: 01/03/18 09:48 Dose: Not Given Thiamine HCl 100 mg/ Sodium (Chloride) 51 mls @ 100 mls/hr IVPB 1200 [facility] Last Admin: 01/03/18 11:28 Dose: 51 mls Fentanyl Citrate 2,000 mcg/ (Sodium Chloride) 100 mls @ 0 mls/hr IV INF [facility]; Protocol Stop: 01/30/18 11:56 Fentanyl Citrate (Fentanyl Bolus) 250 mls @ 0 mls/hr IVPB PRN PRN PRN Reason: Breakthrough pain/agitation Stop: 01/30/18 11:56 Norepinephrine Bitartrate (Levophed) 250 mls @ 0 mls/hr IVPB INF [facility]; Protocol Last Admin: 12/31/17 14:37 Dose: 250 mls Vancomycin HCl 1 gm/ Device 200 mls @ 200 mls/hr IVPB 1000,2200 [facility] Last Admin: 01/03/18 09:48 Dose: 200 mls Midazolam HCl (Versed) 100 mls @ 0 mls/hr IVPB INF [facility]; Protocol Last Admin: 01/03/18 09:25 Dose: 100 mls Insulin Human Lispro (Humalog) 0 units SC .MILD SLIDING SCALE PRN PRN Reason: Mild Correctional Scale Last Admin: 01/03/18 15:04 Dose: 2 unit Lorazepam (Ativan) 2 mg SLOW IVP Q1H PRN PRN Reason: Breakthrough agitation Stop: 01/30/18 11:56 Last Admin: 01/03/18 09:48 Dose: 2 mg Methylprednisolone Sodium Succinate (Solu-Medrol) 30 mg IVP Q6HR [facility] Last Admin: 01/03/18 11:28 Dose: 30 mg Miscellaneous Medication (Pharmacy To Dose) 1 each IVPB PRN PRN PRN Reason: Pharmacy to dose Morphine Sulfate (Morphine) 2 mg SLOW IVP Q1H PRN PRN Reason: BREAKTHROUGH PAIN/AGITATION Last Admin: 01/03/18 14:11 Dose: 2 mg Nicotine (Nicoderm Patch) 14 mg TD 1200 [facility] Last Admin: 01/03/18 11:27 Dose: 14 mg Discontinue Previous Narcotic Pain Medications And Benzodiazepines 1 each FS .ONE [facility] Stop: 01/30/18 11:56 Pantoprazole Sodium (Protonix) 40 mg IVP DAILY [facility] Last Admin: 01/03/18 09:48 Dose: 40 mg Propofol (Diprivan) 1,000 mg IV INF PRN; Protocol PRN Reason: TO ACHIEVE GOAL RASS Stop: 01/30/18 11:56 Last Admin: 01/03/18 14:07 Dose: 1,000 mg Propofol (Diprivan Bolus) 20 mg IV Q5MIN PRN PRN Reason: BREAKTHROUGH AGITATION Stop: 01/30/18 11:56 Sodium Bicarbonate (Bicarbonate, Sodium) 650 mg PER TUBE ASDIR PRN PRN Reason: TUBE OCCLUSION TX Sodium Chloride (Flush - Normal Saline) 10 ml IVF Q12HR [facility] Last Admin: 01/03/18 08:13 Dose: 10 ml Sodium Chloride (Flush - Normal Saline) 10 ml IVF PRN PRN PRN Reason: Saline Flush Last Admin: 01/03/18 08:13 Dose: 10 ml Valproic Acid (Depakene Liquid) 500 mg PER TUBE TID [facility] Last Admin: 01/03/18 14:00 Dose: 500 mg Ziprasidone (Geodon) 60 mg PER TUBE QAM [facility] Last Admin: 01/03/18 09:49 Dose: 60 mg
[2018-01-04] MEDS: hydrALAZINE 20 MG/ML VIAL SLOW IVP PRN (01:41)
[2018-01-04 05:15] LABS: ALT (SGPT) 17 U/L (8-55); AST (SGOT) 12 U/L (5-34); Albumin 3.4 g/dL (3.4-4.8); Alkaline Phosphatase 47 U/L (40-150); Anion Gap 15 mmol/L (10-20); BUN (Urea Nitrogen) 21 mg/dL (8.4-25.7); Bilirubin, Total 0.5 mg/dL (0.2-1.2); Calc. Creatinine Clearance 73 mL/min (70-130); Calcium 8.3 mg/dL (7.8-10.44); Carbon Dioxide 28 mmol/L (23-31); Chloride 104 mmol/L (98-107); Estimated GFR-MDRD Greater than 90; Glucose 183 mg/dL (83-110); Potassium 3.2 mmol/L (3.5-5.1); Protein, Total 6.4 g/dL (5.8-8.1); Sodium 144 mmol/L (136-145)
[2018-01-04 05:26] LABS: Band 5 % (5-11); Eosinophils 1 % (0-10); Hemoglobin 13.9 g/dL (14.0-18.0); Lymphocytes 5 % (21-51); MDiff Complete? YES; Mean Corpuscular HGB CONC 34.4 g/dL (32.0-36.0); Mean Corpuscular Hemoglobin 31.7 pg (27.0-31.0); Mean Platelet Volume 7.7 fL (7.4-10.4); Monocytes 9 % (0-10); Myelocyte 2 % (0-0); Neutrophil 78 % (42-75); Platelet Count 257 thou/uL (130-400); Red Blood Cell (RBC) Count 4.39 mill/uL (4.70-6.10); White Blood Cell (WBC) Count 19.8 thou/uL (4.8-10.8)
[2018-01-04] MEDS: HumaLOG 300 UNITS/3 ML VIAL SC PRN ×3 (05:29→15:24)
[2018-01-04] MEDS: Budesonide 0.5 MG/2 ML NEB INH SCH ×2 (07:07→18:49)
[2018-01-04 07:19] LABS: Actual Bicarbonate (HCO3a) 28.7 mEq/L (22-28); Base Excess (BEa) 5.7 mEq/L (-2.0 to +3.0); CO2 Tension 36.5 mmHg (35.0-45.0); Carboxyhemoglobin (COHb) 1.1 gm% (0.0-3.0); Hemoglobin (Hb) 14.4 g/dL (14.0-18.0); O2 Tension (PaO2) 73.2 mmHg (> 70.0); pH, Arterial 7.51 (7.35-7.45)
[2018-01-04 07:20] LABS: ALV-art Gradient 130.725 (0-20); Calcium, Ionized 1.06 mmol/L (1.12-1.30); Puncture Site RRA
[2018-01-04] MEDS ORDERED: CCU Electrolyte Replacement 1 EACH FS ONE (08:03)
[2018-01-04] MEDS ORDERED: Potassium Chloride 20 MEQ TAB PO PRN (08:08)
[2018-01-04] MEDS ORDERED: Potassium Phosphate 9 MMOL in Sodium Chloride 0.9% 100 ML IVPB PRN (08:08)
[2018-01-04] MEDS ORDERED: Potassium Phosphate 12 MMOL in Sodium Chloride 0.9% 250 ML 250 ML IV PRN (08:08)
[2018-01-04] MEDS ORDERED: Magnesium 2 GM/NS 0.9% 100 ML 2 GM in Premix Bag 1 BAG IVPB PRN (08:08)
[2018-01-04] MEDS ORDERED: Potassium Chloride 40 MEQ in Premix Bag 1 BAG IVPB PRN (08:08)
[2018-01-04] MEDS ORDERED: CCU ELECTROLYTE REPLACEMENT PROTOCOL FS PRN (08:08)
[2018-01-04] MEDS ORDERED: Magnesium Oxide 400 MG TAB PO PRN ×2 (08:08)
[2018-01-04] MEDS ORDERED: Potassium Phosphate 15 MMOL in Sodium Chloride 0.9% 250 ML 250 ML IV PRN (08:08)
[2018-01-04] MEDS ORDERED: Potassium Chloride 40 MEQ in Sodium Chloride 0.9% 250 ML 250 ML IVPB PRN (08:08)
--- NOTE | 2018-01-04 08:12 | PRG ---
DATE OF SERVICE: 01/04/2018. Thirty-five minutes critical care time. SUBJECTIVE: The patient remains intubated on mechanical ventilation. His clinical course is largely unchanged. He still remains agitated when sedation is lowered. PHYSICAL EXAMINATION: VITAL SIGNS: Temperature is 98.2, pulse 112, blood pressure 182/83. A 24-hour intake 3712, total ou tput 4110. Weight 138 pounds. NEUROLOGIC: He will move all 4 extremities. Very agitated with any stimulation. HEENT: Unremarkable. NECK: No JVD. LUNGS: A few crackles at both bases. CARDIAC: S1 and S2 regular, tachycardic. ABDOMEN: Soft, nontender. EXTREMITIES: No edema. LABORATORY DATA: Sodium 144, potassium 3.2, chloride 104, CO2 28, BUN 21, creatinine 0.7, glucose 18 3. White blood cell count 19.8, hemoglobin 13.9, hematocrit 40.4, platelet count 257. ABG: PH 7.51 , PCO2 36, pO2 of 73 on SIMV rate 12, tidal volume 500, PEEP 8, pressure support 10, FiO2 35%. X-RAY FINDINGS: His chest x-ray showed no significant change, still has a left lower lobe infiltrate . ASSESSMENT: 1. Aspiration pneumonia. 2. Chronic obstructive pulmonary disease with exacerbation. 3. Metabolic encephalopathy. PLAN: I will place him on spontaneous breathing mode. I still think he remains too agitated to cons ider weaning from the ventilator at this time. I will continue current antibiotics. I have stopped his IV fluids. He will remain on Depakote and Geodon. Urine drug screen has been ordered as that wa s missed at the time of admission.
--- NOTE | 2018-01-04 09:11 | RAD ---
CHEST 1 VIEW: HISTORY: Dyspnea. COMPARISON: 01/03/18. FINDINGS: Cardiac silhouette is magnified by projection. Pulmonary vasculature upper limits of normal. Parenc hymal opacity at the left base has progressed. The patient is slightly rotated rightward. Lines and tubes appear unchanged in position. IMPRESSION: Worsening left basilar infiltrate. Findings are otherwise stable. POS: [facility]
[2018-01-04] MEDS: Enoxaparin Sodium 40 MG/0.4 ML SYRINGE SC SCH (09:32)
[2018-01-04] MEDS: Pantoprazole 40 MG VIAL IVP SCH (09:32)
[2018-01-04] MEDS: Valproate Sodium 250 mg/5 ml UD Cup PER TUBE SCH ×3 (09:32→20:25)
[2018-01-04] MEDS: Finasteride 5 MG TAB PO SCH (09:32)
[2018-01-04] MEDS: Ziprasidone 60 MG CAP PER TUBE SCH (09:32)
[2018-01-04] MEDS: Gabapentin 300 MG CAP PO SCH ×3 (09:32→20:13)
[2018-01-04] MEDS: Propranolol HCl LA 60 MG CAP PO SCH (09:46)
[2018-01-04 09:48] LABS: Vancomycin, Trough 18.9 ug/mL
[2018-01-04] MEDS: Vancomycin HCl 1 GM in Premix Bag 1 BAG IVPB SCH ×2 (10:02→21:53)
[2018-01-04] MEDS: Propofol 1,000 MG/100 ML VIAL IV PRN (10:08)
[2018-01-04 10:30] LABS: Amphetamine Not Detected (NotDetected); Barbiturates Screen Not Detected (NotDetected); Benzodiazepine Screen Detected (NotDetected); Cocaine Metabolite Screen Not Detected (NotDetected); Medtox Control Line Valid? VALID (VALID); Medtox Reader # READER 4; Methadone Not Detected (NotDetected); Methamphetamine Not Detected (NotDetected); Opiate Screen Detected (NotDetected); Oxycodone Screen Not Detected (NotDetected); Phencyclidine (PCP) Not Detected (NotDetected); THC/Cannabinoid Screen Not Detected (NotDetected); Tricyclic Screen Not Detected (NotDetected)
[2018-01-04] MEDS: Cefepime 1 GM in Sodium Chloride 0.9% 100 ML IVPB SCH (11:27)
[2018-01-04] MEDS: Nicotine 14 MG PATCH TD SCH (11:28)
[2018-01-04] MEDS: fentaNYL Citrate/PF 2,000 MCG in Sodium Chloride 0.9% 60 ML IV SCH (14:29)
--- NOTE | 2018-01-04 16:00 | PDOC.PN ---
- Subjective Encounter Start Date: 01/04/18 Encounter Start Time: 09:00 Subjective: pt intubation - Objective Resuscitation Status: Resuscitation Status FULL:Full Resuscitation Vital Signs & Weight: Vital Signs (12 hours) Temp Pulse Resp 01/04/18 14:00 14 01/04/18 13:56 79 01/04/18 12:00 11 L 01/04/18 10:42 107 H 01/04/18 10:00 17 01/04/18 08:00 14 01/04/18 07:07 115 H 01/04/18 07:00 98.5 F 01/04/18 06:00 32 H 01/04/18 04:00 98.2 F 21 H Weight Admit Weight 137 lb 12.623 oz Weight 138 lb 3.677 oz Most Recent Monitor Data Heart Rate from ECG 85 NIBP 152/66 NIBP BP-Mean 116 Respiration from ECG 20 SpO2 93 I&O: 01/03/18 01/04/18 01/05/18 06:59 06:59 06:59 Intake Total 3584.9 3712.1 314.7 Output Total 1527 4110 1825 Balance 2057.9 -397.9 -1510.3 Result Diagrams: 01/04/18 03:40 01/04/18 03:40 Additional Labs: Accuchecks 01/04/18 01/04/18 01/03/18 15:23 09:17 22:59 POC Glucose 162 H 155 H 198 H Phys Exam - Physical Examination Neck: no nodes, no JVD, supple, full ROM Respiratory: no wheezing, no rales, no rhonchi, wheezing present, clear to auscultation bilateral Cardiovascular: RRR, no significant murmur, no rub, gallop, irregular Gastrointestinal: soft, non-tender, no distention, positive bowel sounds Musculoskeletal: no edema, pulses present, edema present Dx/Plan (1) Acute respiratory failure with hypercapnia Code(s): J96.02 - ACUTE RESPIRATORY FAILURE WITH HYPERCAPNIA Status: Acute Comment: Extubated. Very agitated. Symptoms resistent to treatment. Reintubated. (2) Agitation requiring sedation protocol Code(s): R45.1 - RESTLESSNESS AND AGITATION Status: Acute Comment: Failed doses of ativan, morphine and then Pecedex gtt. Reintubated and on Diprivan with good results. (3) COPD (chronic obstructive pulmonary disease) Status: Acute Comment: Nebs, steroids. (4) Diabetes mellitus Code(s): E11.9 - TYPE 2 DIABETES MELLITUS WITHOUT COMPLICATIONS Status: Acute Comment: accucheks and SSI. (5) Alcohol abuse Code(s): F10.10 - ALCOHOL ABUSE, UNCOMPLICATED Status: Acute - Plan Nurse did get med list which indicated he was on pain meds -: continue abx for aspiration. UDS ordered -: pt gets agitated when sedation is weaned off. * . Review of Systems - Review of Systems Other: unable to obtain - Medications/Allergies Allergies/Adverse Reactions: Allergies Allergy/AdvReac Type Severity Reaction Status Date / Time Penicillins Allergy Verified 12/30/17 09:59 Medications: Current Medications Albuterol/Ipratropium (Duoneb) 3 ml NEB [id number] [facility] Last Admin: 01/04/18 13:56 Dose: 3 ml Lipase/Protease/Amylase ([place] [id number]) 1 cap PER TUBE ASDIR PRN PRN Reason: TUBE OCCLUSION TX Budesonide (Pulmicort Neb Solution) 0.5 mg INH BID-RT [facility] Last Admin: 01/04/18 07:07 Dose: 0.5 mg Dextrose/Water (Dextrose 50%) 25 gm SLOW IVP PRN PRN PRN Reason: Hypoglycemia Enoxaparin Sodium (Lovenox) 40 mg SC 0900 [facility] Last Admin: 01/04/18 09:32 Dose: 40 mg Finasteride (Proscar) 5 mg PO DAILY [facility] Last Admin: 01/04/18 09:32 Dose: 5 mg Gabapentin (Neurontin) 300 mg PO TID [facility] Last Admin: 01/04/18 15:22 Dose: 300 mg Glucagon (Glucagon) 1 mg IM PRN PRN PRN Reason: Hypoglycemia Hydralazine HCl (Apresoline) 10 mg SLOW IVP Q4H PRN PRN Reason: Hypertension Last Admin: 01/04/18 01:41 Dose: 10 mg Cefepime HCl 1 gm/ Sodium (Chloride) 100 mls @ 200 mls/hr IVPB 1200,2359 [facility] Last Admin: 01/04/18 11:27 Dose: 100 mls Dextrose/Water (D5w) 1,000 mls @ 0 mls/hr IV .Q0M PRN PRN Reason: Hypoglycemia Thiamine HCl 100 mg/ Sodium (Chloride) 51 mls @ 100 mls/hr IVPB 1200 [facility] Last Admin: 01/04/18 12:27 Dose: 51 mls Fentanyl Citrate 2,000 mcg/ (Sodium Chloride) 100 mls @ 0 mls/hr IV INF [facility]; Protocol Stop: 01/30/18 11:56 Last Admin: 01/04/18 14:29 Dose: 100 mls Fentanyl Citrate (Fentanyl Bolus) 250 mls @ 0 mls/hr IVPB PRN PRN PRN Reason: Breakthrough pain/agitation Stop: 01/30/18 11:56 Norepinephrine Bitartrate (Levophed) 250 mls @ 0 mls/hr IVPB INF [facility]; Protocol Last Admin: 12/31/17 14:37 Dose: 250 mls Vancomycin HCl 1 gm/ Device 200 mls @ 200 mls/hr IVPB 1000,2200 [facility] Last Admin: 01/04/18 10:02 Dose: 200 mls Midazolam HCl (Versed) 100 mls @ 0 mls/hr IVPB INF [facility]; Protocol Last Admin: 01/04/18 10:56 Dose: 100 mls Potassium Chloride 40 meq/ (Sodium Chloride) 270 mls @ 135 mls/hr IVPB ASDIR PRN PRN Reason: FOR SERUM K+ 2.5 - 3.5 Potassium Chloride 40 meq/ (Device) 100 mls @ 50 mls/hr IVPB ASDIR PRN PRN Reason: FOR SERUM K+ 2.5 - 3.5 Magnesium Sulfate 1 gm/ Sodium (Chloride) 102 mls @ 102 mls/hr IV PRN PRN PRN Reason: MAG LEVEL 1.4 - 2.0 Magnesium Sulfate 2 gm/ Device 100 mls @ 100 mls/hr IVPB ASDIR PRN PRN Reason: MAGNESIUM < 1.4 Potassium Phosphate 9 mmol/ (Sodium Chloride) 103 mls @ 25.75 mls/hr IVPB ASDIR PRN PRN Reason: Phosphate 1.0-1.8 Potassium Phosphate 12 mmol/ (Sodium Chloride) 254 mls @ 63.5 mls/hr IV ASDIR PRN PRN Reason: Serum phosphate 0.5-0.9 Potassium Phosphate 15 mmol/ (Sodium Chloride) 255 mls @ 63.75 mls/hr IV ASDIR PRN PRN Reason: Serum Phos < 0.5 Insulin Human Lispro (Humalog) 0 units SC .MILD SLIDING SCALE PRN PRN Reason: Mild Correctional Scale Last Admin: 01/04/18 15:24 Dose: 2 unit Lorazepam (Ativan) 2 mg SLOW IVP Q1H PRN PRN Reason: Breakthrough agitation Stop: 01/30/18 11:56 Last Admin: 01/03/18 21:35 Dose: 2 mg Magnesium Oxide (Magnesium Oxide) 400 mg PO BIDPRN PRN PRN Reason: FOR SERUM MAG 1.4 - 2.0 Magnesium Oxide (Magnesium Oxide) 800 mg PO PRN PRN PRN Reason: FOR SERUM MAG < 1.4 Methylprednisolone Sodium Succinate (Solu-Medrol) 20 mg IVP Q12HR [facility] Last Admin: 01/04/18 09:31 Dose: 20 mg Miscellaneous Medication (Pharmacy To Dose) 1 each IVPB PRN PRN PRN Reason: Pharmacy to dose Miscellaneous Medication (Phos-Nak) 1 pkt PO TIDPRN PRN PRN Reason: FOR PHOS LEVEL 1.0 - 1.8 Miscellaneous Medication (Phos-Nak) 2 pkt PO TIDPRN PRN PRN Reason: FOR PHOS LEVEL 0.5 - 1.0 Morphine Sulfate (Morphine) 2 mg SLOW IVP Q1H PRN PRN Reason: BREAKTHROUGH PAIN/AGITATION Last Admin: 01/03/18 16:24 Dose: 2 mg Nicotine (Nicoderm Patch) 14 mg TD 1200 [facility] Last Admin: 01/04/18 11:28 Dose: 14 mg Discontinue Previous Narcotic Pain Medications And Benzodiazepines 1 each FS .ONE [facility] Stop: 01/30/18 11:56 Ccu Electrolyte (Replacement Protocol) 0 each FS PRN PRN PRN Reason: FOR ELECTROLYTE REPLACEMENT Pantoprazole Sodium (Protonix) 40 mg IVP DAILY [facility] Last Admin: 01/04/18 09:32 Dose: 40 mg Potassium Chloride (K-Dur) 40 meq PO ASDIR PRN PRN Reason: FOR SERUM K+ 2.5 - 3.5 Potassium Chloride (Klor-Con) 40 meq PER TUBE ASDIR PRN PRN Reason: FOR SERUM K+ 2.5-3.5 Last Admin: 01/04/18 09:31 Dose: 40 meq Propofol (Diprivan) 1,000 mg IV INF PRN; Protocol PRN Reason: TO ACHIEVE GOAL RASS Stop: 01/30/18 11:56 Last Admin: 01/04/18 10:08 Dose: 1,000 mg Propofol (Diprivan Bolus) 20 mg IV Q5MIN PRN PRN Reason: BREAKTHROUGH AGITATION Stop: 01/30/18 11:56 Propranolol HCl (Inderal La) 60 mg PO DAILY [facility] Last Admin: 01/04/18 09:46 Dose: 60 mg Sodium Bicarbonate (Bicarbonate, Sodium) 650 mg PER TUBE ASDIR PRN PRN Reason: TUBE OCCLUSION TX Sodium Chloride (Flush - Normal Saline) 10 ml IVF Q12HR [facility] Last Admin: 01/04/18 09:33 Dose: 10 ml Sodium Chloride (Flush - Normal Saline) 10 ml IVF PRN PRN PRN Reason: Saline Flush Last Admin: 01/04/18 09:33 Dose: 10 ml Valproic Acid (Depakene Liquid) 500 mg PER TUBE TID [facility] Last Admin: 01/04/18 15:22 Dose: 500 mg Ziprasidone (Geodon) 60 mg PER TUBE QAM [facility] Last Admin: 01/04/18 09:32 Dose: 60 mg
[2018-01-05 06:04] LABS: Anion Gap 10 mmol/L (10-20); BUN (Urea Nitrogen) 33 mg/dL (8.4-25.7); Calc. Creatinine Clearance 82 mL/min (70-130); Calcium 7.9 mg/dL (7.8-10.44); Carbon Dioxide 32 mmol/L (23-31); Chloride 102 mmol/L (98-107); Estimated GFR-MDRD Greater than 90; Glucose 196 mg/dL (83-110); Potassium 3.9 mmol/L (3.5-5.1); Sodium 140 mmol/L (136-145)
[2018-01-05 06:40] LABS: Band 6 % (5-11); Hemoglobin 12.6 g/dL (14.0-18.0); Lymphocytes 10 % (21-51); MDiff Complete? YES; Mean Corpuscular HGB CONC 33.1 g/dL (32.0-36.0); Mean Corpuscular Volume 93.5 fL (78.0-98.0); Monocytes 1 % (0-10); Neutrophil 83 % (42-75); Platelet Count 217 thou/uL (130-400); RBC Distribution Width 13.2 % (11.5-14.5); Red Blood Cell (RBC) Count 4.08 mill/uL (4.70-6.10); White Blood Cell (WBC) Count 17.9 thou/uL (4.8-10.8)
[2018-01-05] MEDS: Budesonide 0.5 MG/2 ML NEB INH SCH ×2 (07:03→18:50)
[2018-01-05 07:36] LABS: Actual Bicarbonate (HCO3a) 29.5 mEq/L (22-28); Base Excess (BEa) 5.7 mEq/L (-2.0 to +3.0); CO2 Tension 40.2 mmHg (35.0-45.0); Carboxyhemoglobin (COHb) 1.4 gm% (0.0-3.0); Hemoglobin (Hb) 14.4 g/dL (14.0-18.0); O2 Tension (PaO2) 63.7 mmHg (> 70.0); Puncture Site RRA; pH, Arterial 7.48 (7.35-7.45)
[2018-01-05] MEDS: Enoxaparin Sodium 40 MG/0.4 ML SYRINGE SC SCH (07:54)
[2018-01-05] MEDS: Pantoprazole 40 MG VIAL IVP SCH (07:54)
[2018-01-05] MEDS: Finasteride 5 MG TAB PO SCH (07:54)
[2018-01-05] MEDS: Gabapentin 300 MG CAP PO SCH ×3 (07:55→20:55)
[2018-01-05] MEDS: Valproate Sodium 250 mg/5 ml UD Cup PER TUBE SCH ×3 (07:56→20:55)
--- NOTE | 2018-01-05 08:16 | RAD ---
CHEST ONE VIEW: HISTORY: Dyspnea. COMPARISON: 01/04/2018 FINDINGS: The cardiac silhouette is magnified by projection. The patient is rotated leftward. The pulmonary v asculature is at the upper limits of normal. The lungs remain hyperinflated. An infiltrate at the l eft base is less pronounced than on the prior study and partially obscured by rotation of the patient . Lines and tubes appear unchanged in position. No evidence of pneumothorax. IMPRESSION: Improved aeration, left lung base. Findings are otherwise stable. POS: NICOLETTE
--- NOTE | 2018-01-05 08:16 | PRG ---
DATE OF SERVICE: 01/05/2018 The patient remains intubated on mechanical ventilation. He is actually much more calm than he was y esterday and I attribute this to him being on a fentanyl drip. Yesterday his significant other broug ht a medication list stating the patient is on [place] at home and also had a prescription for Narcan n daija spray. This indicates to me that the patient probably has a narcotic abuse problem. PHYSICAL EXAMINATION: VITAL SIGNS: Temperature is 97.6, pulse 82, blood pressure 159/75, O2 sat 95%. Total intake for 24 hours 1980, output 2536. HEENT: Unremarkable. NECK: Without adenopathy or JVD. LUNGS: Clear anteriorly. CARDIOVASCULAR: S1 and S2 regular, without audible murmur. ABDOMEN: Soft, nontender. EXTREMITIES: No edema. NEUROLOGIC: He is not obeying commands and is very calm in bed. He is currently on Versed, propofol and the fentanyl drips. His chest x-ray demonstrates no evidence of mass, effusion, or infiltrate. LABORATORY DATA: White blood cell count 17.9, hematocrit 38.2, platelet count 217. ABG, pH 7.48, pC O2 of 40, pO2 of 63 that is on pressure support ventilation with PEEP 8, pressure support 10, sodium 140, potassium 3.9, chloride 102, CO2 32, BUN 33, creatinine 0.6, glucose 196. ASSESSMENT: 1. This patient is experiencing narcotic withdrawal, which has improved after starting a fentanyl dr ip. His altered mental status is probably secondary to the effects of Versed and propofol. 2. Aspiration pneumonia. 3. Chronic obstructive pulmonary disease. 4. Metabolic encephalopathy. PLAN: I have instructed the nursing staff to come down on the amount of Versed and propofol. We bárbara l continue the fentanyl. I will go ahead and stop the Geodon, but we will continue the Depakene liqu id. He is continuing IV antibiotics, cefepime and vancomycin for aspiration. I think that it is pro bably safe to stop the vancomycin given that nothing has come from his cultures. I would anticipate this patient being intubated another day or two. His ability to extubate will be predicated on his m ental status. In the meantime, he continues tube feeding. I will wean his steroids.
[2018-01-05] MEDS: Propranolol HCl LA 60 MG CAP PO SCH (09:14)
[2018-01-05] MEDS: Cefepime 1 GM in Sodium Chloride 0.9% 100 ML IVPB SCH ×3 (11:47→23:59)
[2018-01-05] MEDS: Nicotine 14 MG PATCH TD SCH (11:48)
--- NOTE | 2018-01-05 15:38 | PDOC.PN ---
- Subjective Encounter Start Date: 01/05/18 Encounter Start Time: 10:00 Subjective: pt intubated - Objective Resuscitation Status: Resuscitation Status FULL:Full Resuscitation Vital Signs & Weight: Vital Signs (12 hours) Temp Pulse Resp BP Pulse Ox 01/05/18 14:57 73 116/53 L 01/05/18 14:56 73 14 93 L 01/05/18 12:00 98.4 F 25 H 01/05/18 10:36 81 145/64 H 01/05/18 10:34 79 18 99 01/05/18 10:00 18 01/05/18 08:00 21 H 95 01/05/18 07:00 97.6 F 01/05/18 06:59 82 150/72 H 01/05/18 06:55 81 15 99 01/05/18 06:00 14 01/05/18 04:00 98.6 F 17 Weight Admit Weight 137 lb 12.623 oz Weight 138 lb 3.677 oz Most Recent Monitor Data Heart Rate from ECG 75 NIBP 116/53 NIBP BP-Mean 61 Respiration from ECG 22 SpO2 92 I&O: 01/04/18 01/05/18 01/06/18 06:59 06:59 06:59 Intake Total 3712.1 1980.6 220 Output Total 4110 2537 345 Balance -397.9 -556.4 -125 Result Diagrams: 01/05/18 04:46 01/05/18 04:46 Additional Labs: Accuchecks 01/05/18 12:16 POC Glucose 138 H Phys Exam - Physical Examination Neck: no nodes, no JVD, supple, full ROM Respiratory: no wheezing, no rales, no rhonchi, wheezing present, clear to auscultation bilateral Cardiovascular: RRR, no significant murmur, no rub, gallop, irregular Gastrointestinal: soft, non-tender, no distention, positive bowel sounds Musculoskeletal: no edema, pulses present, edema present Dx/Plan (1) Acute respiratory failure with hypercapnia Code(s): J96.02 - ACUTE RESPIRATORY FAILURE WITH HYPERCAPNIA Status: Acute Comment: Extubated. Very agitated. Symptoms resistent to treatment. Reintubated. (2) Agitation requiring sedation protocol Code(s): R45.1 - RESTLESSNESS AND AGITATION Status: Acute Comment: Failed doses of ativan, morphine and then Pecedex gtt. Reintubated and on Diprivan with good results. (3) COPD (chronic obstructive pulmonary disease) Status: Acute Comment: Nebs, steroids. (4) Diabetes mellitus Code(s): E11.9 - TYPE 2 DIABETES MELLITUS WITHOUT COMPLICATIONS Status: Acute Comment: accucheks and SSI. (5) Alcohol abuse Code(s): F10.10 - ALCOHOL ABUSE, UNCOMPLICATED Status: Acute (6) Aspiration pneumonia Code(s): J69.0 - PNEUMONITIS DUE TO INHALATION OF FOOD AND VOMIT Status: Acute - Plan continue abx for aspiration pneumonia -: possible narcotic withdrawal * . Review of Systems - Review of Systems Other: unable to do - Medications/Allergies Allergies/Adverse Reactions: Allergies Allergy/AdvReac Type Severity Reaction Status Date / Time Penicillins Allergy Verified 12/30/17 09:59 Medications: Current Medications Albuterol/Ipratropium (Duoneb) 3 ml NEB [id number] [facility] Last Admin: 01/05/18 14:56 Dose: 3 ml Lipase/Protease/Amylase ([place] [id number]) 1 cap PER TUBE ASDIR PRN PRN Reason: TUBE OCCLUSION TX Budesonide (Pulmicort Neb Solution) 0.5 mg INH BID-RT [facility] Last Admin: 01/05/18 07:03 Dose: 0.5 mg Dextrose/Water (Dextrose 50%) 25 gm SLOW IVP PRN PRN PRN Reason: Hypoglycemia Enoxaparin Sodium (Lovenox) 40 mg SC 0900 [facility] Last Admin: 01/05/18 07:54 Dose: 40 mg Finasteride (Proscar) 5 mg PO DAILY [facility] Last Admin: 01/05/18 07:54 Dose: 5 mg Gabapentin (Neurontin) 300 mg PO TID [facility] Last Admin: 01/05/18 07:55 Dose: 300 mg Glucagon (Glucagon) 1 mg IM PRN PRN PRN Reason: Hypoglycemia Hydralazine HCl (Apresoline) 10 mg SLOW IVP Q4H PRN PRN Reason: Hypertension Last Admin: 01/04/18 01:41 Dose: 10 mg Cefepime HCl 1 gm/ Sodium (Chloride) 100 mls @ 200 mls/hr IVPB 1200,2359 [facility] Last Admin: 01/05/18 11:47 Dose: 100 mls Dextrose/Water (D5w) 1,000 mls @ 0 mls/hr IV .Q0M PRN PRN Reason: Hypoglycemia Thiamine HCl 100 mg/ Sodium (Chloride) 51 mls @ 100 mls/hr IVPB 1200 [facility] Last Admin: 01/05/18 11:48 Dose: 51 mls Fentanyl Citrate 2,000 mcg/ (Sodium Chloride) 100 mls @ 0 mls/hr IV INF [facility]; Protocol Stop: 01/30/18 11:56 Last Admin: 01/04/18 14:29 Dose: 100 mls Fentanyl Citrate (Fentanyl Bolus) 250 mls @ 0 mls/hr IVPB PRN PRN PRN Reason: Breakthrough pain/agitation Stop: 01/30/18 11:56 Norepinephrine Bitartrate (Levophed) 250 mls @ 0 mls/hr IVPB INF [facility]; Protocol Last Admin: 12/31/17 14:37 Dose: 250 mls Midazolam HCl (Versed) 100 mls @ 0 mls/hr IVPB INF [facility]; Protocol Last Admin: 01/05/18 12:44 Dose: 100 mls Potassium Chloride 40 meq/ (Sodium Chloride) 270 mls @ 135 mls/hr IVPB ASDIR PRN PRN Reason: FOR SERUM K+ 2.5 - 3.5 Potassium Chloride 40 meq/ (Device) 100 mls @ 50 mls/hr IVPB ASDIR PRN PRN Reason: FOR SERUM K+ 2.5 - 3.5 Magnesium Sulfate 1 gm/ Sodium (Chloride) 102 mls @ 102 mls/hr IV PRN PRN PRN Reason: MAG LEVEL 1.4 - 2.0 Magnesium Sulfate 2 gm/ Device 100 mls @ 100 mls/hr IVPB ASDIR PRN PRN Reason: MAGNESIUM < 1.4 Potassium Phosphate 9 mmol/ (Sodium Chloride) 103 mls @ 25.75 mls/hr IVPB ASDIR PRN PRN Reason: Phosphate 1.0-1.8 Potassium Phosphate 12 mmol/ (Sodium Chloride) 254 mls @ 63.5 mls/hr IV ASDIR PRN PRN Reason: Serum phosphate 0.5-0.9 Potassium Phosphate 15 mmol/ (Sodium Chloride) 255 mls @ 63.75 mls/hr IV ASDIR PRN PRN Reason: Serum Phos < 0.5 Insulin Human Lispro (Humalog) 0 units SC .MILD SLIDING SCALE PRN PRN Reason: Mild Correctional Scale Last Admin: 01/04/18 15:24 Dose: 2 unit Lorazepam (Ativan) 2 mg SLOW IVP Q1H PRN PRN Reason: Breakthrough agitation Stop: 01/30/18 11:56 Last Admin: 01/03/18 21:35 Dose: 2 mg Magnesium Oxide (Magnesium Oxide) 400 mg PO BIDPRN PRN PRN Reason: FOR SERUM MAG 1.4 - 2.0 Magnesium Oxide (Magnesium Oxide) 800 mg PO PRN PRN PRN Reason: FOR SERUM MAG < 1.4 Methylprednisolone Sodium Succinate (Solu-Medrol) 20 mg IVP Q24HR [facility] Last Admin: 01/05/18 09:08 Dose: Not Given Miscellaneous Medication (Phos-Nak) 1 pkt PO TIDPRN PRN PRN Reason: FOR PHOS LEVEL 1.0 - 1.8 Miscellaneous Medication (Phos-Nak) 2 pkt PO TIDPRN PRN PRN Reason: FOR PHOS LEVEL 0.5 - 1.0 Morphine Sulfate (Morphine) 2 mg SLOW IVP Q1H PRN PRN Reason: BREAKTHROUGH PAIN/AGITATION Last Admin: 01/03/18 16:24 Dose: 2 mg Nicotine (Nicoderm Patch) 14 mg TD 1200 [facility] Last Admin: 01/05/18 11:48 Dose: 14 mg Discontinue Previous Narcotic Pain Medications And Benzodiazepines 1 each FS .ONE [facility] Stop: 01/30/18 11:56 Ccu Electrolyte (Replacement Protocol) 0 each FS PRN PRN PRN Reason: FOR ELECTROLYTE REPLACEMENT Pantoprazole Sodium (Protonix) 40 mg IVP DAILY [facility] Last Admin: 01/05/18 07:54 Dose: 40 mg Potassium Chloride (K-Dur) 40 meq PO ASDIR PRN PRN Reason: FOR SERUM K+ 2.5 - 3.5 Potassium Chloride (Klor-Con) 40 meq PER TUBE ASDIR PRN PRN Reason: FOR SERUM K+ 2.5-3.5 Last Admin: 01/04/18 09:31 Dose: 40 meq Propofol (Diprivan) 1,000 mg IV INF PRN; Protocol PRN Reason: TO ACHIEVE GOAL RASS Stop: 01/30/18 11:56 Last Admin: 01/04/18 10:08 Dose: 1,000 mg Propofol (Diprivan Bolus) 20 mg IV Q5MIN PRN PRN Reason: BREAKTHROUGH AGITATION Stop: 01/30/18 11:56 Propranolol HCl (Inderal La) 60 mg PO DAILY [facility] Last Admin: 01/05/18 09:14 Dose: 60 mg Sodium Bicarbonate (Bicarbonate, Sodium) 650 mg PER TUBE ASDIR PRN PRN Reason: TUBE OCCLUSION TX Sodium Chloride (Flush - Normal Saline) 10 ml IVF Q12HR [facility] Last Admin: 01/05/18 07:55 Dose: Not Given Sodium Chloride (Flush - Normal Saline) 10 ml IVF PRN PRN PRN Reason: Saline Flush Last Admin: 01/04/18 09:33 Dose: 10 ml Valproic Acid (Depakene Liquid) 500 mg PER TUBE TID [facility] Last Admin: 01/05/18 07:56 Dose: 500 mg
[2018-01-05] MEDS: HumaLOG 300 UNITS/3 ML VIAL SC PRN (17:20)
[2018-01-05] MEDS: Lorazepam 2 MG/ML VIAL SLOW IVP PRN (17:21)
[2018-01-05] MEDS: Propofol 1,000 MG/100 ML VIAL IV PRN (23:11)
[2018-01-06 05:09] LABS: Anion Gap 8 mmol/L (10-20); BUN (Urea Nitrogen) 35 mg/dL (8.4-25.7); Calc. Creatinine Clearance 83 mL/min (70-130); Carbon Dioxide 35 mmol/L (23-31); Chloride 102 mmol/L (98-107); Estimated GFR-MDRD Greater than 90; Glucose 117 mg/dL (83-110); Potassium 3.7 mmol/L (3.5-5.1); Sodium 141 mmol/L (136-145)
[2018-01-06 05:12] LABS: Band 9 % (5-11); Hemoglobin 12.3 g/dL (14.0-18.0); Lymphocytes 9 % (21-51); MDiff Complete? YES; Mean Corpuscular HGB CONC 33.1 g/dL (32.0-36.0); Mean Corpuscular Volume 93.6 fL (78.0-98.0); Mean Platelet Volume 7.3 fL (7.4-10.4); Monocytes 7 % (0-10); Myelocyte 2 % (0-0); Neutrophil 71 % (42-75); Platelet Count 181 thou/uL (130-400); RBC Distribution Width 12.8 % (11.5-14.5); Reactive Lymphocytes 2 % (0-10); Red Blood Cell (RBC) Count 3.98 mill/uL (4.70-6.10); White Blood Cell (WBC) Count 19.5 thou/uL (4.8-10.8)
[2018-01-06] MEDS: fentaNYL Citrate/PF 2,000 MCG in Sodium Chloride 0.9% 60 ML IV SCH (05:33)
[2018-01-06] MEDS: Budesonide 0.5 MG/2 ML NEB INH SCH ×2 (06:46→18:35)
--- NOTE | 2018-01-06 08:00 | RAD ---
PORTABLE CHEST: Date: 01/06/18 PROVIDED CLINICAL HISTORY: Respiratory insufficiency. FINDINGS: Comparison with 01/05/18. Significant interval change with respect to the prior examination is not apparent. IMPRESSION: As above. POS: NICOLETTE
[2018-01-06] MEDS: Enoxaparin Sodium 40 MG/0.4 ML SYRINGE SC SCH (08:45)
[2018-01-06] MEDS: Finasteride 5 MG TAB PO SCH (08:45)
[2018-01-06] MEDS: Pantoprazole 40 MG VIAL IVP SCH (08:45)
[2018-01-06] MEDS: Gabapentin 300 MG CAP PO SCH (08:45)
[2018-01-06] MEDS: Valproate Sodium 250 mg/5 ml UD Cup PER TUBE SCH ×3 (08:52→20:35)
[2018-01-06] MEDS: Propranolol HCl LA 60 MG CAP PO SCH (08:52)
--- NOTE | 2018-01-06 10:06 | PRG ---
DATE OF SERVICE: 01/06/2018 SERVICE: Pulmonary Medicine. INTERVAL HISTORY: He is doing fine from a respiratory standpoint. There has been no interval change to his condition. He is breathing comfortably on pressure support ventilation at 12/5. There have been no events overnight. He continues to be encephalopathic. There has been no change to his neuro logic condition. PHYSICAL EXAMINATION: VITAL SIGNS: Afebrile, pulse 63, blood pressure 92/39, respirations 16, saturation 92% on 35% FiO2. GENERAL: The patient is awake and alert. That being said, he is not able to follow any commands. HEENT: Normocephalic, atraumatic. Sclerae are white, conjunctivae pink. Oral mucosa is moist witho ut lesions. LUNGS: Decent air entry. There is no prolonged expiratory phase. There is no wheezing. No crackle s are identified. HEART: Normal rate, regular. ABDOMEN: Soft, nontender, nondistended. Bowel sounds are positive. MUSCULOSKELETAL: No cyanosis or clubbing. There is trace pitting in the bilateral lower extremities . NEUROLOGIC: He spontaneously opens his eyes and looks around, but does not attend. He closes his ey es to confrontation as well as corneal air. His corneal reflexes are normal. He is breathing on the ventilator comfortably without significant assistance. He does not withdraw from noxious stimuli in all 4 extremities. Brainstem reflexes are all intact, however. LABORATORY DATA: WBC 19.5 and up trending, hemoglobin 12.3, platelets 181,000. Bicarbonate 35 and u p trending. Basic metabolic profile is otherwise unremarkable. Urine opiates and benzodiazepines ar e both positive. HIV is nonreactive. IMAGING: Chest x-ray demonstrates endotracheal tube remains in decent position, 4-5 cm above the lev el of the nathalia. There is an enteric catheter coursing midline below the level of diaphragm and out of the field of view. Interstitial markings are prominent. Otherwise, there is no acute cardiopulm onary abnormality identified. ASSESSMENT: 1. Acute hypoxic respiratory failure. 2. Metabolic encephalopathy. 3. Community-acquired pneumonia secondary to aspiration. 4. Chronic obstructive pulmonary disease with acute exacerbation. DISCUSSION AND PLAN: We will continue our antibiotics, nebulized medications and steroids. We will slowly wean away our sedation as tolerated. Pulmonary Critical Care will continue to follow along. He will need to remain on mechanical ventilation until he can more clearly secure his airway and is f ollowing some simple commands. CRITICAL CARE TIME: 30 minutes.
[2018-01-06] MEDS: Sodium Chloride 0.45% 1,000 ML IV SCH (10:08)
[2018-01-06] MEDS: Lorazepam 2 MG/ML VIAL SLOW IVP PRN ×2 (10:28→19:18)
[2018-01-06] MEDS: Cefepime 1 GM in Sodium Chloride 0.9% 100 ML IVPB SCH ×2 (11:41→23:31)
--- NOTE | 2018-01-06 15:06 | PDOC.PN ---
- Subjective Encounter Start Date: 01/06/18 Encounter Start Time: 10:00 Pt seen for followup re: acute hypercapnic respiratory failure. Intubated, unable to answer questions, could not complete ROS. - Objective Resuscitation Status: Resuscitation Status FULL:Full Resuscitation MAR Reviewed: Yes Vital Signs & Weight: Vital Signs (12 hours) Temp Pulse Resp BP Pulse Ox 01/06/18 14:33 62 101/45 L 01/06/18 14:00 17 01/06/18 13:17 64 103/46 L 01/06/18 13:16 64 18 94 L 01/06/18 12:00 16 01/06/18 10:34 71 118/45 L 01/06/18 10:00 16 01/06/18 08:00 36 H 01/06/18 07:08 94 L 01/06/18 07:00 98.5 F 01/06/18 06:47 61 102/41 L 01/06/18 06:44 62 14 92 L 01/06/18 06:00 18 01/06/18 04:00 98.2 F 16 Weight Admit Weight 137 lb 12.623 oz Weight 138 lb 3.677 oz Most Recent Monitor Data Heart Rate from ECG 62 NIBP 101/45 NIBP BP-Mean 54 Respiration from ECG 14 SpO2 94 I&O: 01/05/18 01/06/18 01/07/18 06:59 06:59 06:59 Intake Total 1980.6 1786.0 120 Output Total 2537 980 600 Balance -556.4 806.0 -480 Result Diagrams: 01/06/18 04:24 01/06/18 04:24 Additional Labs: Accuchecks 01/06/18 01/06/18 01/05/18 11:50 00:10 17:19 POC Glucose 128 H 116 H 187 H EKG Reviewed by me: Yes (Tele: NSR) Phys Exam - Physical Examination Intubated HEENT: moist MMs, sclera anicteric ETT Respiratory: clear to auscultation bilateral Cardiovascular: RRR Gastrointestinal: soft Neurological: moves all 4 limbs Deviation from normal: Unable to assess Dx/Plan (1) Acute respiratory failure with hypercapnia Code(s): J96.02 - ACUTE RESPIRATORY FAILURE WITH HYPERCAPNIA Status: Acute Comment: s/p reintubation, in CCU (2) Aspiration pneumonia Code(s): J69.0 - PNEUMONITIS DUE TO INHALATION OF FOOD AND VOMIT Status: Acute Comment: continue cefepime (3) Diabetes mellitus Code(s): E11.9 - TYPE 2 DIABETES MELLITUS WITHOUT COMPLICATIONS Status: Chronic Comment: continue accuchecks, insulin sliding scale - Plan * . Review of Systems - Medications/Allergies Allergies/Adverse Reactions: Allergies Allergy/AdvReac Type Severity Reaction Status Date / Time Penicillins Allergy Verified 12/30/17 09:59 Medications: Current Medications Albuterol/Ipratropium (Duoneb) 3 ml NEB [id number] [facility] Last Admin: 01/06/18 13:16 Dose: 3 ml Lipase/Protease/Amylase ([place] [id number]) 1 cap PER TUBE ASDIR PRN PRN Reason: TUBE OCCLUSION TX Budesonide (Pulmicort Neb Solution) 0.5 mg INH BID-RT [facility] Last Admin: 01/06/18 06:46 Dose: 0.5 mg Dextrose/Water (Dextrose 50%) 25 gm SLOW IVP PRN PRN PRN Reason: Hypoglycemia Enoxaparin Sodium (Lovenox) 40 mg SC 0900 [facility] Last Admin: 01/06/18 08:45 Dose: 40 mg Finasteride (Proscar) 5 mg PO DAILY [facility] Last Admin: 01/06/18 08:45 Dose: 5 mg Glucagon (Glucagon) 1 mg IM PRN PRN PRN Reason: Hypoglycemia Hydralazine HCl (Apresoline) 10 mg SLOW IVP Q4H PRN PRN Reason: Hypertension Last Admin: 01/04/18 01:41 Dose: 10 mg Cefepime HCl 1 gm/ Sodium (Chloride) 100 mls @ 200 mls/hr IVPB 1200,2359 [facility] Last Admin: 01/06/18 11:41 Dose: 100 mls Dextrose/Water (D5w) 1,000 mls @ 0 mls/hr IV .Q0M PRN PRN Reason: Hypoglycemia Thiamine HCl 100 mg/ Sodium (Chloride) 51 mls @ 100 mls/hr IVPB 1200 [facility] Last Admin: 01/06/18 11:41 Dose: 51 mls Fentanyl Citrate 2,000 mcg/ (Sodium Chloride) 100 mls @ 0 mls/hr IV INF [facility]; Protocol Stop: 01/30/18 11:56 Last Admin: 01/06/18 05:33 Dose: 100 mls Fentanyl Citrate (Fentanyl Bolus) 250 mls @ 0 mls/hr IVPB PRN PRN PRN Reason: Breakthrough pain/agitation Stop: 01/30/18 11:56 Midazolam HCl (Versed) 100 mls @ 0 mls/hr IVPB INF [facility]; Protocol Last Admin: 01/05/18 12:44 Dose: 100 mls Potassium Chloride 40 meq/ (Sodium Chloride) 270 mls @ 135 mls/hr IVPB ASDIR PRN PRN Reason: FOR SERUM K+ 2.5 - 3.5 Potassium Chloride 40 meq/ (Device) 100 mls @ 50 mls/hr IVPB ASDIR PRN PRN Reason: FOR SERUM K+ 2.5 - 3.5 Magnesium Sulfate 1 gm/ Sodium (Chloride) 102 mls @ 102 mls/hr IV PRN PRN PRN Reason: MAG LEVEL 1.4 - 2.0 Magnesium Sulfate 2 gm/ Device 100 mls @ 100 mls/hr IVPB ASDIR PRN PRN Reason: MAGNESIUM < 1.4 Potassium Phosphate 9 mmol/ (Sodium Chloride) 103 mls @ 25.75 mls/hr IVPB ASDIR PRN PRN Reason: Phosphate 1.0-1.8 Potassium Phosphate 12 mmol/ (Sodium Chloride) 254 mls @ 63.5 mls/hr IV ASDIR PRN PRN Reason: Serum phosphate 0.5-0.9 Potassium Phosphate 15 mmol/ (Sodium Chloride) 255 mls @ 63.75 mls/hr IV ASDIR PRN PRN Reason: Serum Phos < 0.5 Sodium Chloride (1/2 Normal Saline) 1,000 mls @ 50 mls/hr IV .Q20H [facility] Last Admin: 01/06/18 10:08 Dose: 1,000 mls Insulin Human Lispro (Humalog) 0 units SC .MILD SLIDING SCALE PRN PRN Reason: Mild Correctional Scale Last Admin: 01/05/18 17:20 Dose: 2 unit Lorazepam (Ativan) 2 mg SLOW IVP Q1H PRN PRN Reason: Breakthrough agitation Stop: 01/30/18 11:56 Last Admin: 01/06/18 10:28 Dose: 2 mg Magnesium Oxide (Magnesium Oxide) 400 mg PO BIDPRN PRN PRN Reason: FOR SERUM MAG 1.4 - 2.0 Magnesium Oxide (Magnesium Oxide) 800 mg PO PRN PRN PRN Reason: FOR SERUM MAG < 1.4 Methylprednisolone Sodium Succinate (Solu-Medrol) 20 mg IVP Q24HR [facility] Last Admin: 01/06/18 08:47 Dose: 20 mg Miscellaneous Medication (Phos-Nak) 1 pkt PO TIDPRN PRN PRN Reason: FOR PHOS LEVEL 1.0 - 1.8 Miscellaneous Medication (Phos-Nak) 2 pkt PO TIDPRN PRN PRN Reason: FOR PHOS LEVEL 0.5 - 1.0 Discontinue Previous Narcotic Pain Medications And Benzodiazepines 1 each FS .ONE [facility] Stop: 01/30/18 11:56 Ccu Electrolyte (Replacement Protocol) 0 each FS PRN PRN PRN Reason: FOR ELECTROLYTE REPLACEMENT Pantoprazole Sodium (Protonix) 40 mg IVP DAILY [facility] Last Admin: 01/06/18 08:45 Dose: 40 mg Potassium Chloride (K-Dur) 40 meq PO ASDIR PRN PRN Reason: FOR SERUM K+ 2.5 - 3.5 Potassium Chloride (Klor-Con) 40 meq PER TUBE ASDIR PRN PRN Reason: FOR SERUM K+ 2.5-3.5 Last Admin: 01/04/18 09:31 Dose: 40 meq Propranolol HCl (Inderal La) 60 mg PO DAILY [facility] Last Admin: 01/06/18 08:52 Dose: 60 mg Sodium Bicarbonate (Bicarbonate, Sodium) 650 mg PER TUBE ASDIR PRN PRN Reason: TUBE OCCLUSION TX Sodium Chloride (Flush - Normal Saline) 10 ml IVF Q12HR [facility] Last Admin: 01/06/18 08:45 Dose: 10 ml Sodium Chloride (Flush - Normal Saline) 10 ml IVF PRN PRN PRN Reason: Saline Flush Last Admin: 01/04/18 09:33 Dose: 10 ml Valproic Acid (Depakene Liquid) 500 mg PER TUBE TID [facility] Last Admin: 01/06/18 15:00 Dose: 500 mg
[2018-01-07] MEDS: Lorazepam 2 MG/ML VIAL SLOW IVP PRN ×2 (00:32→22:48)
[2018-01-07] MEDS: fentaNYL Citrate/PF 2,000 MCG in Sodium Chloride 0.9% 60 ML IV SCH ×2 (03:59→22:45)
[2018-01-07 04:00] LABS: Band 10 % (5-11); Hemoglobin 11.6 g/dL (14.0-18.0); Lymphocytes 18 % (21-51); MDiff Complete? YES; Mean Corpuscular HGB CONC 33.5 g/dL (32.0-36.0); Mean Corpuscular Hemoglobin 31.4 pg (27.0-31.0); Mean Corpuscular Volume 93.8 fL (78.0-98.0); Mean Platelet Volume 7.5 fL (7.4-10.4); Monocytes 10 % (0-10); Myelocyte 1 % (0-0); Neutrophil 61 % (42-75); Platelet Count 145 thou/uL (130-400); RBC Distribution Width 12.9 % (11.5-14.5); Red Blood Cell (RBC) Count 3.68 mill/uL (4.70-6.10); White Blood Cell (WBC) Count 12.5 thou/uL (4.8-10.8)
[2018-01-07 04:09] LABS: Anion Gap 11 mmol/L (10-20); BUN (Urea Nitrogen) 31 mg/dL (8.4-25.7); Calc. Creatinine Clearance 86 mL/min (70-130); Calcium 8.1 mg/dL (7.8-10.44); Carbon Dioxide 33 mmol/L (23-31); Chloride 101 mmol/L (98-107); Estimated GFR-MDRD Greater than 90; Glucose 109 mg/dL (83-110); Potassium 4.1 mmol/L (3.5-5.1); Sodium 141 mmol/L (136-145)
[2018-01-07] MEDS: Sodium Chloride 0.45% 1,000 ML IV SCH ×2 (05:05→11:25)
[2018-01-07] MEDS: Budesonide 0.5 MG/2 ML NEB INH SCH ×2 (06:48→18:45)
[2018-01-07 07:06] LABS: Actual Bicarbonate (HCO3a) 28.5 mEq/L (22-28); Base Excess (BEa) 3.2 mEq/L (-2.0 to +3.0); CO2 Tension 45.8 mmHg (35.0-45.0); Calcium, Ionized 1.16 mmol/L (1.12-1.30); Carboxyhemoglobin (COHb) 1.6 gm% (0.0-3.0); Hemoglobin (Hb) 14.1 g/dL (14.0-18.0); Potassium - ABG Lab 4.05 mmol/L (3.70-5.30); pH, Arterial 7.41 (7.35-7.45)
[2018-01-07 07:07] LABS: O2 Tension (PaO2) 59.4 mmHg (> 70.0); Puncture Site LRA
[2018-01-07] MEDS: Pantoprazole 40 MG VIAL IVP SCH (08:31)
[2018-01-07] MEDS: Enoxaparin Sodium 40 MG/0.4 ML SYRINGE SC SCH (08:31)
[2018-01-07] MEDS: Finasteride 5 MG TAB PO SCH (08:32)
[2018-01-07] MEDS: Propranolol HCl LA 60 MG CAP PO SCH (08:32)
--- NOTE | 2018-01-07 08:49 | RAD ---
PORTABLE CHEST: Date: 01/07/18 PROVIDED CLINICAL HISTORY: Respiratory insufficiency. FINDINGS: Comparison with 01/06/18. Significant interval change with respect to the prior examination is not apparent. IMPRESSION: As above. POS: [facility]
[2018-01-07] MEDS: Valproate Sodium 250 mg/5 ml UD Cup PER TUBE SCH ×2 (10:09→15:08)
--- NOTE | 2018-01-07 11:04 | PRG ---
DATE OF SERVICE: 01/07/2018 SERVICE: Pulmonary Medicine. INTERVAL HISTORY: The patient's mentation is starting to come around a little bit. That being said, whenever we hold sedation, he thrashes about the bed a little bit. He takes very small breaths on p ressure support ventilation at 5/5. His respiratory rate goes up into the upper 40s and lower 50s. He does not tolerate the spontaneous breathing trials very well. He has been off of sedation for ove r 2 hours. He is following some simple commands. He will put his thumb up on his right hand and he is spontaneously moving his upper and lower extremities. That being said, he is still struggling wit h recovering from his metabolic process. PHYSICAL EXAMINATION: VITAL SIGNS: Afebrile, pulse 82, blood pressure 168/66, respirations 20, saturation 98% on 40% FiO2 and a PEEP of 5. GENERAL: The patient is awake and alert, in no apparent distress. LUNGS: Decent air entry. Crackles are present. There are also some rhonchi that change with cough. No prolonged expiratory phase or wheezing is appreciated. HEART: Normal rate and regular. ABDOMEN: Soft, nontender, nondistended. Bowel sounds are positive. MUSCULOSKELETAL: No cyanosis or clubbing. There is no pitting in the bilateral lower extremities. NEUROLOGIC: Grossly nonfocal. LABORATORY DATA: WBC 12.5 and downtrending, hemoglobin 11.6, platelets 145,000. PH 7.41, pCO2 of 45 , pO2 of 59, corresponding to saturation of 90%. Basic metabolic profile is essentially unremarkable . Bicarbonate is trending downward nicely. Urinalysis is unremarkable. Urine drug screen is positi ve for opiates and benzodiazepines. IMAGING: Chest x-ray demonstrates no significant interval change. Endotracheal tube remains in good position. Left IJ is in his superior vena cava. There is reticular and interstitial prominence thr oughout bilateral lung muniz and a couple Olayinka B lines. ASSESSMENT: 1. Acute hypoxic respiratory failure. 2. Metabolic encephalopathy. 3. Community-acquired pneumonia, secondary to aspiration. 4. Chronic obstructive pulmonary disease with acute exacerbation. DISCUSSION AND PLANS: We will continue our supportive care. I put him on Precedex to see if this he lps us to get him off of the Versed and fentanyl. If we can get him comfortable on this medication, we will repeat a spontaneous breathing trial and consider him for extubation. Pulmonary Critical Car e will continue to follow along. CRITICAL CARE TIME: 30 minutes.
[2018-01-07] MEDS: Cefepime 1 GM in Sodium Chloride 0.9% 100 ML IVPB SCH ×2 (11:33→22:49)
--- NOTE | 2018-01-07 17:20 | PDOC.PN ---
- Subjective Encounter Start Date: 01/07/18 Encounter Start Time: 10:20 Pt seen for followup re: acute hypercapnic respiratory failure. Intubated, occasionally agitated, unable to complete ROS. - Objective Resuscitation Status: Resuscitation Status FULL:Full Resuscitation MAR Reviewed: Yes Vital Signs & Weight: Vital Signs (12 hours) Temp Pulse Resp BP Pulse Ox 01/07/18 16:00 98.5 F 12 01/07/18 14:50 59 L 101/42 L 01/07/18 14:00 12 01/07/18 13:02 60 85/34 L 01/07/18 13:01 60 12 93 L 01/07/18 12:00 98.1 F 12 01/07/18 10:29 82 168/66 H 01/07/18 10:00 23 H 01/07/18 08:00 16 01/07/18 07:37 94 L 01/07/18 07:00 98.6 F 01/07/18 06:46 87 153/55 H 01/07/18 06:41 79 28 H 99 01/07/18 06:00 13 Weight Admit Weight 137 lb 12.623 oz Weight 138 lb 3.677 oz Most Recent Monitor Data Heart Rate from ECG 54 NIBP 107/44 NIBP BP-Mean 52 Respiration from ECG 0 SpO2 97 I&O: 01/06/18 01/07/18 01/08/18 06:59 06:59 06:59 Intake Total 1786.0 2324 150 Output Total 980 1190 720 Balance 806.0 1134 -570 Result Diagrams: 01/07/18 03:29 01/07/18 03:29 Additional Labs: Accuchecks 01/07/18 01/07/18 01/06/18 15:55 03:26 20:39 POC Glucose 106 101 125 H EKG Reviewed by me: Yes (Tele: NSR) Phys Exam - Physical Examination Intubated HEENT: moist MMs Neck: supple Respiratory: clear to auscultation bilateral Cardiovascular: RRR Gastrointestinal: soft Neurological: moves all 4 limbs Deviation from normal: Unable to assess Dx/Plan (1) Acute respiratory failure with hypercapnia Code(s): J96.02 - ACUTE RESPIRATORY FAILURE WITH HYPERCAPNIA Status: Acute Comment: pt was reintubated and is on ventilator in CCU (2) Aspiration pneumonia Code(s): J69.0 - PNEUMONITIS DUE TO INHALATION OF FOOD AND VOMIT Status: Acute Comment: will continue cefepime (3) Diabetes mellitus Code(s): E11.9 - TYPE 2 DIABETES MELLITUS WITHOUT COMPLICATIONS Status: Chronic Comment: reasonably controlled, will continue accuchecks and insulin sliding scale - Plan * . Review of Systems - Medications/Allergies Allergies/Adverse Reactions: Allergies Allergy/AdvReac Type Severity Reaction Status Date / Time Penicillins Allergy Verified 12/30/17 09:59 Medications: Current Medications Albuterol/Ipratropium (Duoneb) 3 ml NEB [id number] [facility] Last Admin: 01/07/18 13:01 Dose: 3 ml Lipase/Protease/Amylase ([place] [id number]) 1 cap PER TUBE ASDIR PRN PRN Reason: TUBE OCCLUSION TX Budesonide (Pulmicort Neb Solution) 0.5 mg INH BID-RT [facility] Last Admin: 01/07/18 06:48 Dose: 0.5 mg Dextrose/Water (Dextrose 50%) 25 gm SLOW IVP PRN PRN PRN Reason: Hypoglycemia Enoxaparin Sodium (Lovenox) 40 mg SC 0900 [facility] Last Admin: 01/07/18 08:31 Dose: 40 mg Finasteride (Proscar) 5 mg PO DAILY [facility] Last Admin: 01/07/18 08:32 Dose: 5 mg Glucagon (Glucagon) 1 mg IM PRN PRN PRN Reason: Hypoglycemia Hydralazine HCl (Apresoline) 10 mg SLOW IVP Q4H PRN PRN Reason: Hypertension Last Admin: 01/04/18 01:41 Dose: 10 mg Cefepime HCl 1 gm/ Sodium (Chloride) 100 mls @ 200 mls/hr IVPB 1200,2359 [facility] Last Admin: 01/07/18 11:33 Dose: 100 mls Dextrose/Water (D5w) 1,000 mls @ 0 mls/hr IV .Q0M PRN PRN Reason: Hypoglycemia Thiamine HCl 100 mg/ Sodium (Chloride) 51 mls @ 100 mls/hr IVPB 1200 [facility] Last Admin: 01/07/18 11:33 Dose: 51 mls Fentanyl Citrate 2,000 mcg/ (Sodium Chloride) 100 mls @ 0 mls/hr IV INF [facility]; Protocol Stop: 01/30/18 11:56 Last Admin: 01/07/18 03:59 Dose: 100 mls Fentanyl Citrate (Fentanyl Bolus) 250 mls @ 0 mls/hr IVPB PRN PRN PRN Reason: Breakthrough pain/agitation Stop: 01/30/18 11:56 Midazolam HCl (Versed) 100 mls @ 0 mls/hr IVPB INF [facility]; Protocol Last Admin: 01/07/18 00:47 Dose: 100 mls Potassium Chloride 40 meq/ (Sodium Chloride) 270 mls @ 135 mls/hr IVPB ASDIR PRN PRN Reason: FOR SERUM K+ 2.5 - 3.5 Potassium Chloride 40 meq/ (Device) 100 mls @ 50 mls/hr IVPB ASDIR PRN PRN Reason: FOR SERUM K+ 2.5 - 3.5 Magnesium Sulfate 1 gm/ Sodium (Chloride) 102 mls @ 102 mls/hr IV PRN PRN PRN Reason: MAG LEVEL 1.4 - 2.0 Magnesium Sulfate 2 gm/ Device 100 mls @ 100 mls/hr IVPB ASDIR PRN PRN Reason: MAGNESIUM < 1.4 Potassium Phosphate 9 mmol/ (Sodium Chloride) 103 mls @ 25.75 mls/hr IVPB ASDIR PRN PRN Reason: Phosphate 1.0-1.8 Potassium Phosphate 12 mmol/ (Sodium Chloride) 254 mls @ 63.5 mls/hr IV ASDIR PRN PRN Reason: Serum phosphate 0.5-0.9 Potassium Phosphate 15 mmol/ (Sodium Chloride) 255 mls @ 63.75 mls/hr IV ASDIR PRN PRN Reason: Serum Phos < 0.5 Dexmedetomidine HCl 200 mcg/ (Sodium Chloride) 50 mls @ 0 mls/hr IVPB INF [facility]; Protocol Last Admin: 01/07/18 17:06 Dose: 50 mls Sodium Chloride (1/2 Normal Saline) 1,000 mls @ 25 mls/hr IV .Q24H [facility] Last Admin: 01/07/18 11:25 Dose: 1,000 mls Insulin Human Lispro (Humalog) 0 units SC .MILD SLIDING SCALE PRN PRN Reason: Mild Correctional Scale Last Admin: 01/05/18 17:20 Dose: 2 unit Lorazepam (Ativan) 2 mg SLOW IVP Q1H PRN PRN Reason: Breakthrough agitation Stop: 01/30/18 11:56 Last Admin: 01/07/18 00:32 Dose: 2 mg Magnesium Oxide (Magnesium Oxide) 400 mg PO BIDPRN PRN PRN Reason: FOR SERUM MAG 1.4 - 2.0 Magnesium Oxide (Magnesium Oxide) 800 mg PO PRN PRN PRN Reason: FOR SERUM MAG < 1.4 Methylprednisolone Sodium Succinate (Solu-Medrol) 20 mg IVP Q24HR [facility] Last Admin: 01/07/18 08:17 Dose: 20 mg Miscellaneous Medication (Phos-Nak) 1 pkt PO TIDPRN PRN PRN Reason: FOR PHOS LEVEL 1.0 - 1.8 Miscellaneous Medication (Phos-Nak) 2 pkt PO TIDPRN PRN PRN Reason: FOR PHOS LEVEL 0.5 - 1.0 Discontinue Previous Narcotic Pain Medications And Benzodiazepines 1 each FS .ONE [facility] Stop: 01/30/18 11:56 Ccu Electrolyte (Replacement Protocol) 0 each FS PRN PRN PRN Reason: FOR ELECTROLYTE REPLACEMENT Pantoprazole Sodium (Protonix) 40 mg IVP DAILY [facility] Last Admin: 01/07/18 08:31 Dose: 40 mg Potassium Chloride (K-Dur) 40 meq PO ASDIR PRN PRN Reason: FOR SERUM K+ 2.5 - 3.5 Potassium Chloride (Klor-Con) 40 meq PER TUBE ASDIR PRN PRN Reason: FOR SERUM K+ 2.5-3.5 Last Admin: 01/04/18 09:31 Dose: 40 meq Propranolol HCl (Inderal La) 60 mg PO DAILY [facility] Last Admin: 01/07/18 08:32 Dose: 60 mg Sodium Bicarbonate (Bicarbonate, Sodium) 650 mg PER TUBE ASDIR PRN PRN Reason: TUBE OCCLUSION TX Sodium Chloride (Flush - Normal Saline) 10 ml IVF Q12HR [facility] Last Admin: 01/07/18 08:31 Dose: 10 ml Sodium Chloride (Flush - Normal Saline) 10 ml IVF PRN PRN PRN Reason: Saline Flush Last Admin: 01/04/18 09:33 Dose: 10 ml Valproic Acid (Depakene Liquid) 500 mg PER TUBE TID [facility] Last Admin: 01/07/18 15:08 Dose: 500 mg
[2018-01-08] MEDS: Valproate Sodium 250 mg/5 ml UD Cup PER TUBE SCH ×4 (01:42→23:11)
[2018-01-08 06:33] LABS: #Eosinphils 0.1 thou/uL (0.0-0.7); #Lymphocytes 1.8 thou/uL (1.20-3.40); #Monocytes 1.2 thou/uL (0.11-0.59); #Neutrophils 11.2 thou/uL (1.40-6.50); %Basophils 0.2 % (0.0-1.0); %Eosinophils 0.5 % (0.0-10.0); %Lymphocytes 12.5 % (21.0-51.0); %Monocytes 8.3 % (0.0-10.0); %Neutrophils 78.5 % (42.0-75.0); Hemoglobin 11.6 g/dL (14.0-18.0); Mean Corpuscular Hemoglobin 30.6 pg (27.0-31.0); Mean Corpuscular Volume 92.6 fL (78.0-98.0); Mean Platelet Volume 7.9 fL (7.4-10.4); Platelet Count 151 thou/uL (130-400); RBC Distribution Width 12.8 % (11.5-14.5); White Blood Cell (WBC) Count 14.3 thou/uL (4.8-10.8)
[2018-01-08 06:59] LABS: Anion Gap 11 mmol/L (10-20); BUN (Urea Nitrogen) 26 mg/dL (8.4-25.7); Calc. Creatinine Clearance 88 mL/min (70-130); Calcium 8.4 mg/dL (7.8-10.44); Carbon Dioxide 33 mmol/L (23-31); Chloride 99 mmol/L (98-107); Estimated GFR-MDRD Greater than 90; Glucose 120 mg/dL (83-110); Potassium 3.9 mmol/L (3.5-5.1); Sodium 139 mmol/L (136-145)
[2018-01-08 07:01] LABS: Actual Bicarbonate (HCO3a) 33.5 mEq/L (22-28); Base Excess (BEa) 8.4 mEq/L (-2.0 to +3.0); CO2 Tension 48.4 mmHg (35.0-45.0); Calcium, Ionized 1.12 mmol/L (1.12-1.30); Carboxyhemoglobin (COHb) 1.5 gm% (0.0-3.0); Hemoglobin (Hb) 12.3 g/dL (14.0-18.0); O2 Tension (PaO2) 63.3 mmHg (> 70.0); Potassium - ABG Lab 3.89 mmol/L (3.70-5.30); pH, Arterial 7.46 (7.35-7.45)
[2018-01-08 07:03] LABS: Puncture Site RR
[2018-01-08] MEDS: Budesonide 0.5 MG/2 ML NEB INH SCH ×2 (07:19→18:28)
[2018-01-08] MEDS: Enoxaparin Sodium 40 MG/0.4 ML SYRINGE SC SCH (08:36)
[2018-01-08] MEDS: Finasteride 5 MG TAB PO SCH (08:36)
[2018-01-08] MEDS: Pantoprazole 40 MG VIAL IVP SCH (08:37)
--- NOTE | 2018-01-08 09:38 | PRG ---
DATE OF SERVICE: 01/08/2018 A 35 minutes critical care time. SUBJECTIVE: The patient remains intubated on mechanical ventilation. With any attempt to wean sedat ion, the patient becomes extremely agitated to the point trying to pull out his tube. He will not fo llow any commands specifically. PHYSICAL EXAMINATION: VITAL SIGNS: At this time, his temperature is 98.7, pulse 61, blood pressure 96/38, O2 sat generally in the high 80s to low 90s. HEENT: Pupils react. Sclerae are anicteric. Oropharynx clear. NECK: No JVD. LUNGS: Clear anteriorly. CARDIOVASCULAR: S1, S2 regular, without murmur. ABDOMEN: Soft, nontender. EXTREMITIES: No edema. IMAGING: His chest x-ray demonstrates an ET tube and central line in correct position. His lung fie lds are clear bilaterally. LABORATORY DATA: PH is 7.46, pCO2 48, pO2 63 on SIMV rate 12, tidal volume 500, PEEP 5, pressure sup port 10, FiO2 35%. Sodium 139, potassium 3.9, chloride 99, CO2 of 33, BUN 26, creatinine 2.6, glucos e 120. White blood cell count 14.3, hematocrit 35.2, platelet count 151. ASSESSMENT: 1. Main issue right now is the patient's extreme agitation despite being on fentanyl, Versed and Pre cedex. He is also on oral Depakote. 2. Acute respiratory failure requiring mechanical ventilation. 3. Pneumonia at the time of admission. PLAN: 1. I will add Seroquel. 2. Stop steroids. 3. Stop antibiotics. 4. Not weanable until we can get his agitation under better control. 5. Start propranolol.
[2018-01-08] MEDS: Sodium Chloride 0.45% 1,000 ML IV SCH (10:22)
--- NOTE | 2018-01-08 10:27 | RAD ---
PORTABLE CHEST: Date: 01/08/18 HISTORY: Respiratory distress. COMPARISON: 01/07/18. FINDINGS: Endotracheal and NG tubes are in satisfactory position. Left side central line is unchanged. Lungs re main clear of any infiltrates. IMPRESSION: No acute findings. Essentially stable exam. POS: [facility]
--- NOTE | 2018-01-08 18:01 | PDOC.PN ---
- Subjective Encounter Start Date: 01/08/18 Encounter Start Time: 09:40 Pt seen for followup re: acute hypercapnic respiratory failure. Pt intubated, unable to complete ROS. - Objective Resuscitation Status: Resuscitation Status FULL:Full Resuscitation MAR Reviewed: Yes Vital Signs & Weight: Vital Signs (12 hours) Temp Pulse Resp BP Pulse Ox 01/08/18 16:00 98.1 F 12 01/08/18 15:17 59 L 105/45 L 01/08/18 14:00 12 01/08/18 12:46 57 L 105/52 L 01/08/18 12:00 98.8 F 12 01/08/18 11:13 57 L 105/43 L 01/08/18 10:00 12 01/08/18 08:00 12 01/08/18 07:21 82 96/38 L 01/08/18 07:06 94 L 01/08/18 07:00 98.7 F Weight Admit Weight 137 lb 12.623 oz Weight 138 lb 3.677 oz Most Recent Monitor Data Heart Rate from ECG 57 NIBP 116/51 NIBP BP-Mean 60 Respiration from ECG 1 SpO2 95 I&O: 01/07/18 01/08/18 01/09/18 06:59 06:59 06:59 Intake Total 2324 1817.7 1229.5 Output Total 1190 1560 660 Balance 1134 257.7 569.5 Result Diagrams: 01/08/18 06:20 01/08/18 06:20 Additional Labs: Accuchecks 01/08/18 01/08/18 01/08/18 16:00 09:45 03:17 POC Glucose 81 91 91 01/08/18 01:12 POC Glucose 67 L EKG Reviewed by me: Yes (Tele: NSR) Phys Exam - Physical Examination Intubated HEENT: moist MMs ETT Respiratory: clear to auscultation bilateral Cardiovascular: RRR Gastrointestinal: soft Neurological: moves all 4 limbs Deviation from normal: Unable to assess Dx/Plan (1) Acute respiratory failure with hypercapnia Code(s): J96.02 - ACUTE RESPIRATORY FAILURE WITH HYPERCAPNIA Status: Acute Comment: pt is on ventilator in CCU. Has episodes of agitation. (2) Diabetes mellitus Code(s): E11.9 - TYPE 2 DIABETES MELLITUS WITHOUT COMPLICATIONS Status: Chronic Comment: controlled (3) Aspiration pneumonia Code(s): J69.0 - PNEUMONITIS DUE TO INHALATION OF FOOD AND VOMIT Status: Resolved - Plan * . Review of Systems - Medications/Allergies Allergies/Adverse Reactions: Allergies Allergy/AdvReac Type Severity Reaction Status Date / Time Penicillins Allergy Verified 12/30/17 09:59 Medications: Current Medications Albuterol/Ipratropium (Duoneb) 3 ml NEB [id number] [facility] Last Admin: 01/08/18 12:46 Dose: 3 ml Lipase/Protease/Amylase ([place]ana [id number]) 1 cap PER TUBE ASDIR PRN PRN Reason: TUBE OCCLUSION [place] Budesonide (Pulmicort Neb Solution) 0.5 mg INH BID-RT [facility] Last Admin: 01/08/18 07:19 Dose: 0.5 mg Dextrose/Water (Dextrose 50%) 25 gm SLOW IVP PRN PRN PRN Reason: Hypoglycemia Enoxaparin Sodium (Lovenox) 40 mg SC 0900 [facility] Last Admin: 01/08/18 08:36 Dose: 40 mg Finasteride (Proscar) 5 mg PO DAILY [facility] Last Admin: 01/08/18 08:36 Dose: 5 mg Glucagon (Glucagon) 1 mg IM PRN PRN PRN Reason: Hypoglycemia Hydralazine HCl (Apresoline) 10 mg SLOW IVP Q4H PRN PRN Reason: Hypertension Last Admin: 01/04/18 01:41 Dose: 10 mg Dextrose/Water (D5w) 1,000 mls @ 0 mls/hr IV .Q0M PRN PRN Reason: Hypoglycemia Thiamine HCl 100 mg/ Sodium (Chloride) 51 mls @ 100 mls/hr IVPB 1200 [facility] Last Admin: 01/08/18 11:28 Dose: 51 mls Fentanyl Citrate 2,000 mcg/ (Sodium Chloride) 100 mls @ 0 mls/hr IV INF [facility]; Protocol Stop: 01/30/18 11:56 Last Admin: 01/07/18 22:45 Dose: 100 mls Fentanyl Citrate (Fentanyl Bolus) 250 mls @ 0 mls/hr IVPB PRN PRN PRN Reason: Breakthrough pain/agitation Stop: 01/30/18 11:56 Midazolam HCl (Versed) 100 mls @ 0 mls/hr IVPB INF [facility]; Protocol Last Admin: 01/08/18 01:45 Dose: 100 mls Potassium Chloride 40 meq/ (Sodium Chloride) 270 mls @ 135 mls/hr IVPB ASDIR PRN PRN Reason: FOR SERUM K+ 2.5 - 3.5 Potassium Chloride 40 meq/ (Device) 100 mls @ 50 mls/hr IVPB ASDIR PRN PRN Reason: FOR SERUM K+ 2.5 - 3.5 Magnesium Sulfate 1 gm/ Sodium (Chloride) 102 mls @ 102 mls/hr IV PRN PRN PRN Reason: MAG LEVEL 1.4 - 2.0 Magnesium Sulfate 2 gm/ Device 100 mls @ 100 mls/hr IVPB ASDIR PRN PRN Reason: MAGNESIUM < 1.4 Potassium Phosphate 9 mmol/ (Sodium Chloride) 103 mls @ 25.75 mls/hr IVPB ASDIR PRN PRN Reason: Phosphate 1.0-1.8 Potassium Phosphate 12 mmol/ (Sodium Chloride) 254 mls @ 63.5 mls/hr IV ASDIR PRN PRN Reason: Serum phosphate 0.5-0.9 Potassium Phosphate 15 mmol/ (Sodium Chloride) 255 mls @ 63.75 mls/hr IV ASDIR PRN PRN Reason: Serum Phos < 0.5 Dexmedetomidine HCl 200 mcg/ (Sodium Chloride) 50 mls @ 0 mls/hr IVPB INF [facility]; Protocol Last Admin: 01/08/18 13:38 Dose: 50 mls Sodium Chloride (1/2 Normal Saline) 1,000 mls @ 25 mls/hr IV .Q24H [facility] Last Admin: 01/08/18 10:22 Dose: 1,000 mls Insulin Human Lispro (Humalog) 0 units SC .MILD SLIDING SCALE PRN PRN Reason: Mild Correctional Scale Last Admin: 01/05/18 17:20 Dose: 2 unit Lorazepam (Ativan) 2 mg SLOW IVP Q1H PRN PRN Reason: Breakthrough agitation Stop: 01/30/18 11:56 Last Admin: 01/07/18 22:48 Dose: 2 mg Magnesium Oxide (Magnesium Oxide) 400 mg PO BIDPRN PRN PRN Reason: FOR SERUM MAG 1.4 - 2.0 Magnesium Oxide (Magnesium Oxide) 800 mg PO PRN PRN PRN Reason: FOR SERUM MAG < 1.4 Miscellaneous Medication (Phos-Nak) 1 pkt PO TIDPRN PRN PRN Reason: FOR PHOS LEVEL 1.0 - 1.8 Miscellaneous Medication (Phos-Nak) 2 pkt PO TIDPRN PRN PRN Reason: FOR PHOS LEVEL 0.5 - 1.0 Discontinue Previous Narcotic Pain Medications And Benzodiazepines 1 each FS .ONE [facility] Stop: 01/30/18 11:56 Ccu Electrolyte (Replacement Protocol) 0 each FS PRN PRN PRN Reason: FOR ELECTROLYTE REPLACEMENT Pantoprazole Sodium (Protonix) 40 mg PER TUBE DAILY [facility] Potassium Chloride (K-Dur) 40 meq PO ASDIR PRN PRN Reason: FOR SERUM K+ 2.5 - 3.5 Potassium Chloride (Klor-Con) 40 meq PER TUBE ASDIR PRN PRN Reason: FOR SERUM K+ 2.5-3.5 Last Admin: 01/04/18 09:31 Dose: 40 meq Quetiapine Fumarate (Seroquel) 25 mg PER TUBE BID [facility] Last Admin: 01/08/18 08:36 Dose: 25 mg Sodium Bicarbonate (Bicarbonate, Sodium) 650 mg PER TUBE ASDIR PRN PRN Reason: TUBE OCCLUSION [place] Sodium Chloride (Flush - Normal Saline) 10 ml IVF Q12HR [facility] Last Admin: 01/08/18 08:37 Dose: 10 ml Sodium Chloride (Flush - Normal Saline) 10 ml IVF PRN PRN PRN Reason: Saline Flush Last Admin: 01/07/18 23:42 Dose: 10 ml Valproic Acid (Depakene Liquid) 500 mg PER TUBE TID [facility] Last Admin: 01/08/18 14:33 Dose: 500 mg
[2018-01-08] MEDS: Lorazepam 2 MG/ML VIAL SLOW IVP PRN (23:11)
[2018-01-09 04:56] LABS: #Basophils 0.2 thou/uL (0.0-0.2); #Eosinphils 0.3 thou/uL (0.0-0.7); #Lymphocytes 1.6 thou/uL (1.20-3.40); #Monocytes 2.1 thou/uL (0.11-0.59); #Neutrophils 13.4 thou/uL (1.40-6.50); %Basophils 1.1 % (0.0-1.0); %Eosinophils 1.5 % (0.0-10.0); %Monocytes 12.1 % (0.0-10.0); %Neutrophils 76.3 % (42.0-75.0); Hemoglobin 11.8 g/dL (14.0-18.0); Mean Corpuscular HGB CONC 33.7 g/dL (32.0-36.0); Mean Corpuscular Hemoglobin 31.5 pg (27.0-31.0); Mean Corpuscular Volume 93.5 fL (78.0-98.0); Mean Platelet Volume 8.4 fL (7.4-10.4); Platelet Count 166 thou/uL (130-400); Red Blood Cell (RBC) Count 3.74 mill/uL (4.70-6.10); White Blood Cell (WBC) Count 17.6 thou/uL (4.8-10.8)
[2018-01-09 05:19] LABS: Anion Gap 10 mmol/L (10-20); BUN (Urea Nitrogen) 19 mg/dL (8.4-25.7); Calc. Creatinine Clearance 87 mL/min (70-130); Calcium 8.1 mg/dL (7.8-10.44); Carbon Dioxide 34 mmol/L (23-31); Chloride 97 mmol/L (98-107); Estimated GFR-MDRD Greater than 90; Glucose 109 mg/dL (83-110); Sodium 137 mmol/L (136-145)
[2018-01-09] MEDS: Budesonide 0.5 MG/2 ML NEB INH SCH ×2 (06:23→18:38)
[2018-01-09 06:48] LABS: CO2 Tension 48.1 mmHg (35.0-45.0); O2 Tension (PaO2) 52.6 mmHg (> 70.0); pH, Arterial 7.46 (7.35-7.45)
[2018-01-09 06:49] LABS: ALV-art Gradient 136.825 (0-20); Actual Bicarbonate (HCO3a) 33.7 mEq/L (22-28); Base Excess (BEa) 8.6 mEq/L (-2.0 to +3.0); Carboxyhemoglobin (COHb) 1.7 gm% (0.0-3.0); Hemoglobin (Hb) 12.7 g/dL (14.0-18.0); Puncture Site RRA
--- NOTE | 2018-01-09 07:39 | PDOC.PULCC ---
CCU Progress Note: Subj/Obj - Subjective Date: 01/09/18 Time: 07:37 Subjective: He has remained more calm since starting Seroquel yesterday. Won't follow any commands specifically, but he is arousable. - Objective Allergies/Adverse Reactions: Allergies Allergy/AdvReac Type Severity Reaction Status Date / Time Penicillins Allergy Verified 12/30/17 09:59 MAR Reviewed: Yes Vital Signs and I&O: Vital Signs Temp 98.0 F 01/09/18 04:00 Pulse 74 01/09/18 06:29 Resp 12 01/09/18 02:00 BP 118/46 L 01/09/18 02:32 Pulse Ox 94 L 01/09/18 01:45 Intake & Output 01/08/18 01/09/18 01/09/18 18:59 06:59 18:59 Intake Total 1229.5 935.6 Output Total 660 1015 Balance 569.5 -79.4 Weight 138 lb 3.677 oz Intake: Intake, IV Amount 629.5 488.6 Cefepime 1 gm In Sodium 0 Chloride 0.9% 100 ml @ 200 mls/hr IVPB 1200,2359 [facility] Rx#:[id number] Dexmedetomidine 200 mcg 77 75.6 In Sodium Chloride 0.9% 48 ml @ Per Protocol IVPB INF [facility] Rx#:[id number] Fentanyl BOLUS 250 ml @ 2.5 5 As Directed IVPB PRN PRN Rx#:[id number] Midazolam HCl 100 ml @ 48 48 Titrate IVPB INF [facility] Rx#: [id number] Sodium Chloride 0.45% 1, 275 300 000 ml @ 25 mls/hr IV . Q24H [facility] Rx#:[id number] Sodium Chloride 0.9% 10 117 ml IVF Q12HR [facility] Rx#: [id number] Thiamine HCl 100 mg In 50 Sodium Chloride 0.9% 50 ml @ 100 mls/hr IVPB 1200 [facility] Rx#:[id number] fentaNYL Citrate/PF 2,000 60 60 mcg In Sodium Chloride 0 .9% 60 ml @ Per Protocol IV INF [facility] Rx#:[id number] Tube Feeding 300 327 Tube Irrigant 300 120 Output: Output, [place] 660 1015 Other: Voiding Method Indwelling Catheter Vent Setting: SIMV 12/500/peep5/ps10/35% Spontaneous Breathing Test: not done Lines (incl Aterial, CVC, PICC+Insertion date): Left IJ. Haven't been able to get consent for PICC CCU Progress Note: Exam - Physical Exam Constitutional: NAD HEENT: PERRLA Neck: no nodes, no JVD Cardiovascular: RRR Focused Respiratory Location: rales: Right, Left Gastrointestinal: soft, non-tender Musculoskeletal: edema present Neurological: moves all 4 limbs Lymphatic: no nodes Skin: no rash CCU Progress Note: Data - Labs Result Diagrams: 01/09/18 04:15 01/09/18 04:15 - ABG Interpretation Attestation: I reviewed and interpreted this ABG. ABG Results: POC Bicarbonate Calc 33.2 mmol/L (1.0-85.0) 12/30/17 09:06 ABG pH 7.46 (7.35-7.45) H 01/09/18 06:30 ABG pCO2 48.1 mmHg (35.0-45.0) H 01/09/18 06:30 ABG O2 Sat Calc/Wolf 88.1 % (94.0-98.0) L 01/09/18 06:30 ABG Base Excess 8.6 mEq/L (-2.0 to +3.0) H 01/09/18 06:30 Interpretation: other (hypoxemia) CCU Progress Note: A/P - Problems (1) Acute respiratory failure with hypoxia Current Visit: Yes Status: Acute Code(s): J96.01 - ACUTE RESPIRATORY FAILURE WITH HYPOXIA (2) Agitation requiring sedation protocol Current Visit: Yes Status: Acute Code(s): R45.1 - RESTLESSNESS AND AGITATION (3) Aspiration pneumonia Current Visit: Yes Status: Resolved Code(s): J69.0 - PNEUMONITIS DUE TO INHALATION OF FOOD AND VOMIT - Time Spent with Patient Time (minutes): 35 (cc time) - Plan Plan: Not weanable due to level of agitation. Seroquel appears to be helping. I am hoping to cut the rate of versed infusion by half today. DC the precedex. Don' t think we should wean the fentanyl due to his narcotic dependence. Awaiting placement of a PICC line, assuming we can contact his son for consent. Recheck CXR tomorrow.
[2018-01-09] MEDS: Enoxaparin Sodium 40 MG/0.4 ML SYRINGE SC SCH (08:59)
[2018-01-09] MEDS: Pantoprazole 40 MG GRANULES PACKET PER TUBE SCH (09:00)
[2018-01-09] MEDS: Valproate Sodium 250 mg/5 ml UD Cup PER TUBE SCH ×3 (09:00→20:28)
[2018-01-09] MEDS: fentaNYL Citrate/PF 2,000 MCG in Sodium Chloride 0.9% 60 ML IV SCH (10:24)
[2018-01-09] MEDS: Sodium Chloride 0.45% 1,000 ML IV SCH (13:09)
--- NOTE | 2018-01-09 16:01 | SPC ---
ULTRASOUND AND FLUOROSCOPIC GUIDED RIGHT UPPER EXTREMITY PICC LINE PLACEMENT. INDICATIONS: Need for long-term central venous access. TECHNIQUE: Informed consent was obtained. Preprocedure ultrasound demonstrated a patent right basilic vein. Th e right upper extremity was prepped and draped in the usual sterile fashion. Buffered 1% Lidocaine w as administered to the overlying subcutaneous tissues. Under ultrasound guidance, a micropuncture ac cess kit was utilized to gain access to the right basilic vein. A guidewire was advanced to the leve l of the SVC. A 5 Occitan catheter sheath was then placed. A dual-lumen PICC line, trimmed to 40 cm, was guided over the wire through the sheath. The sheath and wire were removed. The tip of the cath eter was seen at the level of the cavoatrial junction. The catheter flushed and aspirated appropriat barbara. IMPRESSION: Successful right upper extremity peripherally inserted central catheter line placement. POS: NICOLETTE
--- NOTE | 2018-01-09 18:29 | PDOC.PN ---
- Subjective Encounter Start Date: 01/09/18 Encounter Start Time: 11:20 Pt seen for followup re: acute hypercapnic respiratory failure. Intubated, unable to complete ROS. - Objective Resuscitation Status: Resuscitation Status FULL:Full Resuscitation MAR Reviewed: Yes Vital Signs & Weight: Vital Signs (12 hours) Temp Pulse Resp BP Pulse Ox 01/09/18 18:00 17 01/09/18 16:00 98.8 F 30 H 01/09/18 14:57 78 113/41 L 01/09/18 14:00 24 H 01/09/18 12:04 75 123/50 L 01/09/18 12:03 77 20 93 L 01/09/18 12:00 98.6 F 30 H 01/09/18 10:15 75 100/41 L 01/09/18 10:00 21 H 01/09/18 08:00 17 93 L 01/09/18 07:00 98.9 F 01/09/18 06:29 74 Weight Admit Weight 137 lb 12.623 oz Weight 138 lb 3.677 oz Most Recent Monitor Data Heart Rate from ECG 85 NIBP 106/34 NIBP BP-Mean 48 Respiration from ECG 22 SpO2 94 I&O: 01/08/18 01/09/18 01/10/18 06:59 06:59 06:59 Intake Total 1817.7 2195.1 800 Output Total 1560 1675 770 Balance 257.7 520.1 30 Result Diagrams: 01/09/18 04:15 01/09/18 04:15 Additional Labs: Accuchecks 01/09/18 01/09/18 16:19 11:35 POC Glucose 75 78 EKG Reviewed by me: Yes (Tele: NSR) Phys Exam - Physical Examination on mechanical ventilation Respiratory: clear to auscultation bilateral Cardiovascular: RRR Gastrointestinal: non-tender Neurological: moves all 4 limbs Deviation from normal: Unable to assess Dx/Plan (1) Acute respiratory failure with hypercapnia Code(s): J96.02 - ACUTE RESPIRATORY FAILURE WITH HYPERCAPNIA Status: Acute Comment: pt is on ventilator, being managed in CCU. (2) Diabetes mellitus Code(s): E11.9 - TYPE 2 DIABETES MELLITUS WITHOUT COMPLICATIONS Status: Chronic Comment: controlled (3) Aspiration pneumonia Code(s): J69.0 - PNEUMONITIS DUE TO INHALATION OF FOOD AND VOMIT Status: Resolved Comment: antibiotics discontinued - Plan plan discussed w/ family * . Discussed with patient's brother Nacho over telephone, updated him. He is also in discussions with palliative care team re: goals of care. Review of Systems - Medications/Allergies Allergies/Adverse Reactions: Allergies Allergy/AdvReac Type Severity Reaction Status Date / Time Penicillins Allergy Verified 12/30/17 09:59 Medications: Current Medications Albuterol/Ipratropium (Duoneb) 3 ml NEB [id number] [facility] Last Admin: 01/09/18 12:03 Dose: 3 ml Lipase/Protease/Amylase ([place] [id number]) 1 cap PER TUBE ASDIR PRN PRN Reason: TUBE OCCLUSION TX Budesonide (Pulmicort Neb Solution) 0.5 mg INH BID-RT [facility] Last Admin: 01/09/18 06:23 Dose: 0.5 mg Dextrose/Water (Dextrose 50%) 25 gm SLOW IVP PRN PRN PRN Reason: Hypoglycemia Enoxaparin Sodium (Lovenox) 40 mg SC 0900 [facility] Last Admin: 01/09/18 08:59 Dose: 40 mg Glucagon (Glucagon) 1 mg IM PRN PRN PRN Reason: Hypoglycemia Hydralazine HCl (Apresoline) 10 mg SLOW IVP Q4H PRN PRN Reason: Hypertension Last Admin: 01/04/18 01:41 Dose: 10 mg Dextrose/Water (D5w) 1,000 mls @ 0 mls/hr IV .Q0M PRN PRN Reason: Hypoglycemia Fentanyl Citrate 2,000 mcg/ (Sodium Chloride) 100 mls @ 0 mls/hr IV INF [facility]; Protocol Stop: 01/30/18 11:56 Last Admin: 01/09/18 10:24 Dose: 100 mls Fentanyl Citrate (Fentanyl Bolus) 250 mls @ 0 mls/hr IVPB PRN PRN PRN Reason: Breakthrough pain/agitation Stop: 01/30/18 11:56 Midazolam HCl (Versed) 100 mls @ 0 mls/hr IVPB INF [facility]; Protocol Last Admin: 01/09/18 01:42 Dose: 100 mls Potassium Chloride 40 meq/ (Sodium Chloride) 270 mls @ 135 mls/hr IVPB ASDIR PRN PRN Reason: FOR SERUM K+ 2.5 - 3.5 Potassium Chloride 40 meq/ (Device) 100 mls @ 50 mls/hr IVPB ASDIR PRN PRN Reason: FOR SERUM K+ 2.5 - 3.5 Magnesium Sulfate 1 gm/ Sodium (Chloride) 102 mls @ 102 mls/hr IV PRN PRN PRN Reason: MAG LEVEL 1.4 - 2.0 Magnesium Sulfate 2 gm/ Device 100 mls @ 100 mls/hr IVPB ASDIR PRN PRN Reason: MAGNESIUM < 1.4 Potassium Phosphate 9 mmol/ (Sodium Chloride) 103 mls @ 25.75 mls/hr IVPB ASDIR PRN PRN Reason: Phosphate 1.0-1.8 Potassium Phosphate 12 mmol/ (Sodium Chloride) 254 mls @ 63.5 mls/hr IV ASDIR PRN PRN Reason: Serum phosphate 0.5-0.9 Potassium Phosphate 15 mmol/ (Sodium Chloride) 255 mls @ 63.75 mls/hr IV ASDIR PRN PRN Reason: Serum Phos < 0.5 Sodium Chloride (1/2 Normal Saline) 1,000 mls @ 25 mls/hr IV .Q24H [facility] Last Admin: 01/09/18 13:09 Dose: Not Given Insulin Human Lispro (Humalog) 0 units SC .MILD SLIDING SCALE PRN PRN Reason: Mild Correctional Scale Last Admin: 01/05/18 17:20 Dose: 2 unit Lorazepam (Ativan) 2 mg SLOW IVP Q1H PRN PRN Reason: Breakthrough agitation Stop: 01/30/18 11:56 Last Admin: 01/08/18 23:11 Dose: 2 mg Magnesium Oxide (Magnesium Oxide) 400 mg PO BIDPRN PRN PRN Reason: FOR SERUM MAG 1.4 - 2.0 Magnesium Oxide (Magnesium Oxide) 800 mg PO PRN PRN PRN Reason: FOR SERUM MAG < 1.4 Miscellaneous Medication (Phos-Nak) 1 pkt PO TIDPRN PRN PRN Reason: FOR PHOS LEVEL 1.0 - 1.8 Miscellaneous Medication (Phos-Nak) 2 pkt PO TIDPRN PRN PRN Reason: FOR PHOS LEVEL 0.5 - 1.0 Discontinue Previous Narcotic Pain Medications And Benzodiazepines 1 each FS .ONE [facility] Stop: 01/30/18 11:56 Ccu Electrolyte (Replacement Protocol) 0 each FS PRN PRN PRN Reason: FOR ELECTROLYTE REPLACEMENT Pantoprazole Sodium (Protonix) 40 mg PER TUBE DAILY [facility] Last Admin: 01/09/18 09:00 Dose: 40 mg Potassium Chloride (K-Dur) 40 meq PO ASDIR PRN PRN Reason: FOR SERUM K+ 2.5 - 3.5 Potassium Chloride (Klor-Con) 40 meq PER TUBE ASDIR PRN PRN Reason: FOR SERUM K+ 2.5-3.5 Last Admin: 01/04/18 09:31 Dose: 40 meq Quetiapine Fumarate (Seroquel) 25 mg PER TUBE BID [facility] Last Admin: 01/09/18 09:00 Dose: 25 mg Sodium Bicarbonate (Bicarbonate, Sodium) 650 mg PER TUBE ASDIR PRN PRN Reason: TUBE OCCLUSION TX Sodium Chloride (Flush - Normal Saline) 10 ml IVF Q12HR [facility] Last Admin: 01/09/18 09:00 Dose: 10 ml Sodium Chloride (Flush - Normal Saline) 10 ml IVF PRN PRN PRN Reason: Saline Flush Last Admin: 01/07/18 23:42 Dose: 10 ml Valproic Acid (Depakene Liquid) 500 mg PER TUBE TID [facility] Last Admin: 01/09/18 15:57 Dose: 500 mg
[2018-01-10] MEDS: fentaNYL Citrate/PF 2,000 MCG in Sodium Chloride 0.9% 60 ML IV SCH (04:30)
[2018-01-10 05:54] LABS: #Eosinphils 0.1 thou/uL (0.0-0.7); #Lymphocytes 1.2 thou/uL (1.20-3.40); #Monocytes 2.1 thou/uL (0.11-0.59); #Neutrophils 10.7 thou/uL (1.40-6.50); %Basophils 0.2 % (0.0-1.0); %Lymphocytes 8.4 % (21.0-51.0); %Monocytes 14.9 % (0.0-10.0); %Neutrophils 75.5 % (42.0-75.0); Hemoglobin 10.1 g/dL (14.0-18.0); Mean Corpuscular HGB CONC 32.1 g/dL (32.0-36.0); Mean Corpuscular Hemoglobin 30.2 pg (27.0-31.0); Mean Platelet Volume 7.9 fL (7.4-10.4); Platelet Count 157 thou/uL (130-400); RBC Distribution Width 12.9 % (11.5-14.5); Red Blood Cell (RBC) Count 3.34 mill/uL (4.70-6.10); White Blood Cell (WBC) Count 14.2 thou/uL (4.8-10.8)
[2018-01-10 06:01] LABS: Anion Gap 8 mmol/L (10-20); BUN (Urea Nitrogen) 15 mg/dL (8.4-25.7); Calc. Creatinine Clearance 81 mL/min (70-130); Carbon Dioxide 37 mmol/L (23-31); Chloride 96 mmol/L (98-107); Estimated GFR-MDRD Greater than 90; Glucose 110 mg/dL (83-110); Potassium 3.9 mmol/L (3.5-5.1); Sodium 137 mmol/L (136-145)
[2018-01-10 06:44] LABS: Actual Bicarbonate (HCO3a) 33.9 mEq/L (22-28); Base Excess (BEa) 9.8 mEq/L (-2.0 to +3.0); CO2 Tension 44.1 mmHg (35.0-45.0); Calcium, Ionized 1.06 mmol/L (1.12-1.30); Carboxyhemoglobin (COHb) 1.5 gm% (0.0-3.0); Potassium - ABG Lab 3.79 mmol/L (3.70-5.30)
[2018-01-10 06:46] LABS: ALV-art Gradient 141.425 (0-20); Puncture Site RRA
[2018-01-10] MEDS: Budesonide 0.5 MG/2 ML NEB INH SCH ×2 (07:38→18:45)
--- NOTE | 2018-01-10 08:16 | PRG ---
DATE OF SERVICE: 01/10/2018 This is a 35 minutes critical care time. SUBJECTIVE: The patient remains intubated on mechanical ventilation. From an agitation standpoint, he is much more calm than he has been in the last several days. PHYSICAL EXAMINATION: VITAL SIGNS: Temperature 100.1, pulse 88, blood pressure 105/53. A 24-hour intake 1495, output 1805 . He is currently on Versed at 2 mg per hour and fentanyl at 100 mcg per hour. HEENT: Pupils react. Sclerae are anicteric. Oropharynx clear. NECK: No JVD. LUNGS: Some inspiratory crackles in the bases. CARDIOVASCULAR: S1, S2 regular, without murmur. ABDOMEN: Soft, nontender. EXTREMITIES: No clubbing, cyanosis, but does have trace edema. LABORATORY DATA: White blood cell count 14.2, hematocrit 31.4, platelet count 157, pH 7.50, pCO2 of 44, pO2 of 53 on SIMV rate 8, tidal volume 500, PEEP 5, pressure support 10, FiO2 35%. Sodium 137, p otassium 3.9, chloride 96, CO2 37, BUN 15, creatinine 0.6, glucose 110. ASSESSMENT: 1. The patient continues in acute respiratory failure secondary to pneumonia and chronic obstructive pulmonary disease exacerbation. 2. Agitation, which is better on Seroquel and Depakote. 3. Developing a metabolic alkalosis with compensatory respiratory acidosis. PLAN: 1. Add Diamox for a couple of days. 2. I have instructed nursing staff to decrease the Versed and fentanyl by half. I am hoping to get him to the point where he can follow commands in the next several days. We will continue to feed him . His antibiotic therapy has been stopped. His x-ray was reviewed and shows some bilateral infiltra tive changes where I suspect it may be pulmonary edema.
--- NOTE | 2018-01-10 09:26 | RAD ---
AP VIEW CHEST: INDICATIONS: Intubation. COMPARISON: 01/08/2018 FINDINGS: The previously seen left IJ central venous catheter appears to have been removed. There is a new rig ht-sided PICC line in place. The gastric catheter projects beyond the field of view. The patient re sera intubated. Heart size is within normal limits. No definite confluent air space opacity is not ed. No definite pleural effusion or pneumothorax is evident. IMPRESSION: 1. Limited examination due to rotation. 2. Interval removal of left internal jugular central venous catheter. 3. New right-sided peripherally inserted central catheter line in place. 4. Endotracheal tube tip projects in the expected position. 5. No confluent air space opacity or pneumothorax demonstrated. POS: [facility]
[2018-01-10] MEDS: Valproate Sodium 250 mg/5 ml UD Cup PER TUBE SCH ×3 (10:10→21:29)
[2018-01-10] MEDS: Pantoprazole 40 MG GRANULES PACKET PER TUBE SCH (10:10)
[2018-01-10] MEDS: Enoxaparin Sodium 40 MG/0.4 ML SYRINGE SC SCH (10:11)
[2018-01-10] MEDS ORDERED: Sterile Water 10 ML VIAL FS SCH (10:15)
[2018-01-10] MEDS: acetaZOLAMIDE Sodium 500 mg Vial IVP SCH ×2 (11:34→21:28)
--- NOTE | 2018-01-10 18:12 | PDOC.PN ---
- Subjective Encounter Start Date: 01/10/18 Encounter Start Time: 10:40 Pt seen for followup re: acute respiratory failure with hypercapnia. Intubated , ROS could not be completed. - Objective Resuscitation Status: Resuscitation Status FULL:Full Resuscitation Vital Signs & Weight: Vital Signs (12 hours) Temp Pulse Resp BP Pulse Ox 01/10/18 15:20 102 H 133/61 01/10/18 12:52 91 106/47 L 01/10/18 11:08 90 92/42 L 01/10/18 10:00 19 01/10/18 08:57 96 109/50 L 01/10/18 08:00 21 H 94 L 01/10/18 07:38 86 105/53 L 01/10/18 07:00 100.1 F H Weight Admit Weight 137 lb 12.623 oz Weight 138 lb 3.677 oz Most Recent Monitor Data Heart Rate from ECG 101 NIBP 120/54 NIBP BP-Mean 76 Respiration from ECG 12 SpO2 99 I&O: 01/09/18 01/10/18 01/11/18 06:59 06:59 06:59 Intake Total 2195.1 1495.3 2.5 Output Total 1675 1805 410 Balance 520.1 -309.7 -407.5 Result Diagrams: 01/10/18 05:28 01/10/18 05:28 Additional Labs: Accuchecks 01/10/18 01/10/18 01/10/18 17:42 10:52 03:34 POC Glucose 124 H 113 H 95 01/09/18 22:21 POC Glucose 84 Phys Exam - Physical Examination Intubated ETT Respiratory: clear to auscultation bilateral Cardiovascular: RRR Gastrointestinal: soft Neurological: moves all 4 limbs Deviation from normal: Unable to assess Dx/Plan (1) Acute respiratory failure with hypercapnia Code(s): J96.02 - ACUTE RESPIRATORY FAILURE WITH HYPERCAPNIA Status: Acute Comment: pt is on ventilator, being managed in CCU. On Seroquel and Depakote for agitation. (2) Diabetes mellitus Code(s): E11.9 - TYPE 2 DIABETES MELLITUS WITHOUT COMPLICATIONS Status: Chronic Comment: controlled (3) Aspiration pneumonia Code(s): J69.0 - PNEUMONITIS DUE TO INHALATION OF FOOD AND VOMIT Status: Resolved - Plan * . Review of Systems - Medications/Allergies Allergies/Adverse Reactions: Allergies Allergy/AdvReac Type Severity Reaction Status Date / Time Penicillins Allergy Verified 12/30/17 09:59 Medications: Current Medications Acetazolamide Sodium (Diamox) 250 mg IVP BID [facility] Last Admin: 01/10/18 11:34 Dose: 250 mg Albuterol/Ipratropium (Duoneb) 3 ml NEB [id number] [facility] Last Admin: 01/10/18 12:52 Dose: 3 ml Lipase/Protease/Amylase ([place] [id number]) 1 cap PER TUBE ASDIR PRN PRN Reason: TUBE OCCLUSION TX Budesonide (Pulmicort Neb Solution) 0.5 mg INH BID-RT [facility] Last Admin: 01/10/18 07:38 Dose: 0.5 mg Dextrose/Water (Dextrose 50%) 25 gm SLOW IVP PRN PRN PRN Reason: Hypoglycemia Enoxaparin Sodium (Lovenox) 40 mg SC 0900 [facility] Last Admin: 01/10/18 10:11 Dose: 40 mg Glucagon (Glucagon) 1 mg IM PRN PRN PRN Reason: Hypoglycemia Hydralazine HCl (Apresoline) 10 mg SLOW IVP Q4H PRN PRN Reason: Hypertension Last Admin: 01/04/18 01:41 Dose: 10 mg Dextrose/Water (D5w) 1,000 mls @ 0 mls/hr IV .Q0M PRN PRN Reason: Hypoglycemia Fentanyl Citrate 2,000 mcg/ (Sodium Chloride) 100 mls @ 0 mls/hr IV INF [facility]; Protocol Stop: 01/30/18 11:56 Last Admin: 01/10/18 04:30 Dose: 100 mls Fentanyl Citrate (Fentanyl Bolus) 250 mls @ 0 mls/hr IVPB PRN PRN PRN Reason: Breakthrough pain/agitation Stop: 01/30/18 11:56 Midazolam HCl (Versed) 100 mls @ 0 mls/hr IVPB INF [facility]; Protocol Last Admin: 01/10/18 12:15 Dose: 100 mls Potassium Chloride 40 meq/ (Sodium Chloride) 270 mls @ 135 mls/hr IVPB ASDIR PRN PRN Reason: FOR SERUM K+ 2.5 - 3.5 Potassium Chloride 40 meq/ (Device) 100 mls @ 50 mls/hr IVPB ASDIR PRN PRN Reason: FOR SERUM K+ 2.5 - 3.5 Magnesium Sulfate 1 gm/ Sodium (Chloride) 102 mls @ 102 mls/hr IV PRN PRN PRN Reason: MAG LEVEL 1.4 - 2.0 Magnesium Sulfate 2 gm/ Device 100 mls @ 100 mls/hr IVPB ASDIR PRN PRN Reason: MAGNESIUM < 1.4 Potassium Phosphate 9 mmol/ (Sodium Chloride) 103 mls @ 25.75 mls/hr IVPB ASDIR PRN PRN Reason: Phosphate 1.0-1.8 Potassium Phosphate 12 mmol/ (Sodium Chloride) 254 mls @ 63.5 mls/hr IV ASDIR PRN PRN Reason: Serum phosphate 0.5-0.9 Potassium Phosphate 15 mmol/ (Sodium Chloride) 255 mls @ 63.75 mls/hr IV ASDIR PRN PRN Reason: Serum Phos < 0.5 Insulin Human Lispro (Humalog) 0 units SC .MILD SLIDING SCALE PRN PRN Reason: Mild Correctional Scale Last Admin: 01/05/18 17:20 Dose: 2 unit Lorazepam (Ativan) 2 mg SLOW IVP Q1H PRN PRN Reason: Breakthrough agitation Stop: 01/30/18 11:56 Last Admin: 01/08/18 23:11 Dose: 2 mg Magnesium Oxide (Magnesium Oxide) 400 mg PO BIDPRN PRN PRN Reason: FOR SERUM MAG 1.4 - 2.0 Magnesium Oxide (Magnesium Oxide) 800 mg PO PRN PRN PRN Reason: FOR SERUM MAG < 1.4 Miscellaneous Medication (Phos-Nak) 1 pkt PO TIDPRN PRN PRN Reason: FOR PHOS LEVEL 1.0 - 1.8 Miscellaneous Medication (Phos-Nak) 2 pkt PO TIDPRN PRN PRN Reason: FOR PHOS LEVEL 0.5 - 1.0 Discontinue Previous Narcotic Pain Medications And Benzodiazepines 1 each FS .ONE [facility] Stop: 01/30/18 11:56 Ccu Electrolyte (Replacement Protocol) 0 each FS PRN PRN PRN Reason: FOR ELECTROLYTE REPLACEMENT Pantoprazole Sodium (Protonix) 40 mg PER TUBE DAILY [facility] Last Admin: 01/10/18 10:10 Dose: 40 mg Potassium Chloride (K-Dur) 40 meq PO ASDIR PRN PRN Reason: FOR SERUM K+ 2.5 - 3.5 Potassium Chloride (Klor-Con) 40 meq PER TUBE ASDIR PRN PRN Reason: FOR SERUM K+ 2.5-3.5 Last Admin: 01/04/18 09:31 Dose: 40 meq Quetiapine Fumarate (Seroquel) 25 mg PER TUBE BID [facility] Last Admin: 01/10/18 10:12 Dose: 25 mg Sodium Bicarbonate (Bicarbonate, Sodium) 650 mg PER TUBE ASDIR PRN PRN Reason: TUBE OCCLUSION TX Sodium Chloride (Flush - Normal Saline) 10 ml IVF Q12HR [facility] Last Admin: 01/10/18 10:10 Dose: 10 ml Sodium Chloride (Flush - Normal Saline) 10 ml IVF PRN PRN PRN Reason: Saline Flush Last Admin: 01/07/18 23:42 Dose: 10 ml Sterile Water (Water For Injection) 0 ml FS BID [facility] Valproic Acid (Depakene Liquid) 500 mg PER TUBE TID [facility] Last Admin: 01/10/18 15:17 Dose: 500 mg
[2018-01-10] MEDS: Sterile Water 10 ML VIAL FS SCH (21:28)
[2018-01-11 05:00] LABS: Anion Gap 11 mmol/L (10-20); BUN (Urea Nitrogen) 16 mg/dL (8.4-25.7); Calc. Creatinine Clearance 73 mL/min (70-130); Calcium 8.2 mg/dL (7.8-10.44); Carbon Dioxide 28 mmol/L (23-31); Chloride 100 mmol/L (98-107); Estimated GFR-MDRD Greater than 90; Glucose 129 mg/dL (83-110); Potassium 3.7 mmol/L (3.5-5.1); Sodium 135 mmol/L (136-145)
[2018-01-11 05:36] LABS: Band 4 % (5-11); Hemoglobin 10.4 g/dL (14.0-18.0); Hypochromia SLIGHT = 6-15 cells (100X) (0-5/hpf); Lymphocytes 4 % (21-51); MDiff Complete? YES; Mean Corpuscular HGB CONC 32.9 g/dL (32.0-36.0); Mean Corpuscular Hemoglobin 31.2 pg (27.0-31.0); Mean Corpuscular Volume 94.8 fL (78.0-98.0); Mean Platelet Volume 7.9 fL (7.4-10.4); Monocytes 11 % (0-10); Neutrophil 81 % (42-75); PLT Morphology Comment Appears Adequate; Platelet Count 158 thou/uL (130-400); RBC Distribution Width 12.9 % (11.5-14.5); Red Blood Cell (RBC) Count 3.34 mill/uL (4.70-6.10); White Blood Cell (WBC) Count 11.7 thou/uL (4.8-10.8)
[2018-01-11] MEDS: fentaNYL Citrate/PF 2,000 MCG in Sodium Chloride 0.9% 60 ML IV SCH (05:36)
[2018-01-11] MEDS: Budesonide 0.5 MG/2 ML NEB INH SCH ×2 (07:35→19:31)
[2018-01-11 07:53] LABS: Actual Bicarbonate (HCO3a) 27.1 mEq/L (22-28); Base Excess (BEa) 3.6 mEq/L (-2.0 to +3.0); CO2 Tension 37.7 mmHg (35.0-45.0); Calcium, Ionized 1.12 mmol/L (1.12-1.30); Carboxyhemoglobin (COHb) 1.5 gm% (0.0-3.0); Hemoglobin (Hb) 14.3 g/dL (14.0-18.0); O2 Tension (PaO2) 68.8 mmHg (> 70.0); pH, Arterial 7.48 (7.35-7.45)
[2018-01-11 07:55] LABS: ALV-art Gradient 133.625 (0-20); Puncture Site RRA
--- NOTE | 2018-01-11 08:31 | PRG ---
DATE OF SERVICE: 01/11/2018 Thirty-five minutes critical care time. The patient is very agitated off the fentanyl and Versed this morning to the point where he had to be re-sedated. Off of sedation he breathes about 50 times a minute. PHYSICAL EXAMINATION: VITAL SIGNS: On exam, his temperature is 97.7 with a T-max of 100.8, pulse 121, blood pressure 179/7 3, 24 intake 1074, output 3050. Weight 138 pounds. HEENT: Pupils react. Sclerae icteric. Oropharynx clear. NECK: No JVD. LUNGS: Coarse breath sounds. CARDIAC: S1 and S2 regular. ABDOMEN: Soft, nontender. EXTREMITIES: No edema. LABORATORY DATA: White blood cell count 11.7, hematocrit 31.7, platelet count 158. Sodium 135, pota ssium 3.7, chloride 100, CO2 28, BUN 16, creatinine 0.7, glucose 129. ABG, pH 7.48, pCO2 37, pO2 of 68. This on SIMV rate 8, tidal volume 500, PEEP 5, pressure support 10, FiO2 35%. ASSESSMENT: 1. Continued hypoxic respiratory failure requiring mechanical ventilation. 2. Underlying chronic obstructive pulmonary disease - exact severity is unknown. 3. Probable withdrawal symptoms. 4. Low-grade fever. PLAN: I spoke to the patient's brother in [place] at length over the phone today. I told him cecil t I did not feel that the patient was likely to wean without a tracheostomy and feeding tube in place . Even with those interventions, I certainly cannot guarantee that he would wean. Apparently, the p atmiguel angel has been seeing doctors over at [facility]. The brother has requested that we get records from that facility. He will talk with other family members regarding the prospect of trache ostomy placement. The patient's brother has my direct phone number at the office. In the meantime, we are continuing sedation. I think given the low grade fever that it might be jean to add broad spe ctrum antibiotic.
[2018-01-11] MEDS: Pantoprazole 40 MG GRANULES PACKET PER TUBE SCH (09:04)
[2018-01-11] MEDS: Enoxaparin Sodium 40 MG/0.4 ML SYRINGE SC SCH (09:04)
[2018-01-11] MEDS: acetaZOLAMIDE Sodium 500 mg Vial IVP SCH ×2 (09:04→21:27)
[2018-01-11] MEDS: Sterile Water 10 ML VIAL FS SCH ×2 (09:06→21:33)
[2018-01-11] MEDS: Valproate Sodium 250 mg/5 ml UD Cup PER TUBE SCH ×3 (09:43→21:28)
--- NOTE | 2018-01-11 18:02 | PDOC.PN ---
- Subjective Encounter Start Date: 01/11/18 Encounter Start Time: 10:40 -: non-verbal Pt seen for followup re: acute resp failure with hypercapnis. Intubated, occ episodes of agitation. Unable to complete ROS. - Objective Resuscitation Status: Resuscitation Status FULL:Full Resuscitation MAR Reviewed: Yes Vital Signs & Weight: Vital Signs (12 hours) Temp Pulse Resp BP Pulse Ox 01/11/18 16:00 100.8 F H 30 H 01/11/18 15:02 112 H 114/54 L 01/11/18 14:00 25 H 01/11/18 12:00 99.8 F H 36 H 01/11/18 10:00 38 H 01/11/18 08:00 99.7 F H 35 H 97 01/11/18 07:36 119 H 115/61 Weight Admit Weight 137 lb 12.623 oz Weight 138 lb 3.677 oz Most Recent Monitor Data Heart Rate from ECG 110 NIBP 100/46 NIBP BP-Mean 64 Respiration from ECG 26 SpO2 98 I&O: 01/10/18 01/11/18 01/12/18 06:59 06:59 06:59 Intake Total 1495.3 1074.5 812 Output Total 1805 3050 1165 Balance -309.7 -1975.5 -353 Result Diagrams: 01/11/18 04:33 01/11/18 04:33 Additional Labs: Accuchecks 01/11/18 01/11/18 01/10/18 15:43 10:16 23:16 POC Glucose 146 H 136 H 138 H 01/10/18 17:42 POC Glucose 124 H EKG Reviewed by me: Yes (Tele: NSR) Phys Exam - Physical Examination Constitutional: NAD HEENT: moist MMs ETT Respiratory: clear to auscultation bilateral Cardiovascular: RRR Gastrointestinal: soft Neurological: moves all 4 limbs Deviation from normal: Unable to assess Dx/Plan (1) Acute respiratory failure with hypercapnia Code(s): J96.02 - ACUTE RESPIRATORY FAILURE WITH HYPERCAPNIA Status: Acute Comment: On Seroquel and Depakote for agitation. Sedation increased earlier today. On vent in CCU. (2) Diabetes mellitus Code(s): E11.9 - TYPE 2 DIABETES MELLITUS WITHOUT COMPLICATIONS Status: Chronic Comment: controlled - Plan * . Review of Systems - Medications/Allergies Allergies/Adverse Reactions: Allergies Allergy/AdvReac Type Severity Reaction Status Date / Time Penicillins Allergy Verified 12/30/17 09:59 Medications: Current Medications Acetazolamide Sodium (Diamox) 250 mg IVP BID [facility] Last Admin: 01/11/18 09:04 Dose: 250 mg Albuterol/Ipratropium (Duoneb) 3 ml NEB [id number] [facility] Last Admin: 01/11/18 15:01 Dose: 3 ml Lipase/Protease/Amylase (Sanjuanita Santana [id number]) 1 cap PER TUBE ASDIR PRN PRN Reason: TUBE OCCLUSION TX Budesonide (Pulmicort Neb Solution) 0.5 mg INH BID-RT [facility] Last Admin: 01/11/18 07:35 Dose: 0.5 mg Dextrose/Water (Dextrose 50%) 25 gm SLOW IVP PRN PRN PRN Reason: Hypoglycemia Enoxaparin Sodium (Lovenox) 40 mg SC 0900 [facility] Glucagon (Glucagon) 1 mg IM PRN PRN PRN Reason: Hypoglycemia Hydralazine HCl (Apresoline) 10 mg SLOW IVP Q4H PRN PRN Reason: Hypertension Last Admin: 01/04/18 01:41 Dose: 10 mg Dextrose/Water (D5w) 1,000 mls @ 0 mls/hr IV .Q0M PRN PRN Reason: Hypoglycemia Fentanyl Citrate 2,000 mcg/ (Sodium Chloride) 100 mls @ 0 mls/hr IV INF [facility]; Protocol Stop: 01/30/18 11:56 Last Admin: 01/11/18 05:36 Dose: 100 mls Fentanyl Citrate (Fentanyl Bolus) 250 mls @ 0 mls/hr IVPB PRN PRN PRN Reason: Breakthrough pain/agitation Stop: 01/30/18 11:56 Midazolam HCl (Versed) 100 mls @ 0 mls/hr IVPB INF [facility]; Protocol Last Admin: 01/10/18 12:15 Dose: 100 mls Potassium Chloride 40 meq/ (Sodium Chloride) 270 mls @ 135 mls/hr IVPB ASDIR PRN PRN Reason: FOR SERUM K+ 2.5 - 3.5 Potassium Chloride 40 meq/ (Device) 100 mls @ 50 mls/hr IVPB ASDIR PRN PRN Reason: FOR SERUM K+ 2.5 - 3.5 Magnesium Sulfate 1 gm/ Sodium (Chloride) 102 mls @ 102 mls/hr IV PRN PRN PRN Reason: MAG LEVEL 1.4 - 2.0 Magnesium Sulfate 2 gm/ Device 100 mls @ 100 mls/hr IVPB ASDIR PRN PRN Reason: MAGNESIUM < 1.4 Potassium Phosphate 9 mmol/ (Sodium Chloride) 103 mls @ 25.75 mls/hr IVPB ASDIR PRN PRN Reason: Phosphate 1.0-1.8 Potassium Phosphate 12 mmol/ (Sodium Chloride) 254 mls @ 63.5 mls/hr IV ASDIR PRN PRN Reason: Serum phosphate 0.5-0.9 Potassium Phosphate 15 mmol/ (Sodium Chloride) 255 mls @ 63.75 mls/hr IV ASDIR PRN PRN Reason: Serum Phos < 0.5 Levofloxacin 750 mg/ Device 150 mls @ 100 mls/hr IVPB 1800 [facility] Insulin Human Lispro (Humalog) 0 units SC .MILD SLIDING SCALE PRN PRN Reason: Mild Correctional Scale Last Admin: 01/05/18 17:20 Dose: 2 unit Lorazepam (Ativan) 2 mg SLOW IVP Q1H PRN PRN Reason: Breakthrough agitation Stop: 01/30/18 11:56 Last Admin: 01/08/18 23:11 Dose: 2 mg Magnesium Oxide (Magnesium Oxide) 400 mg PO BIDPRN PRN PRN Reason: FOR SERUM MAG 1.4 - 2.0 Magnesium Oxide (Magnesium Oxide) 800 mg PO PRN PRN PRN Reason: FOR SERUM MAG < 1.4 Miscellaneous Medication (Phos-Nak) 1 pkt PO TIDPRN PRN PRN Reason: FOR PHOS LEVEL 1.0 - 1.8 Miscellaneous Medication (Phos-Nak) 2 pkt PO TIDPRN PRN PRN Reason: FOR PHOS LEVEL 0.5 - 1.0 Discontinue Previous Narcotic Pain Medications And Benzodiazepines 1 each FS .ONE [facility] Stop: 01/30/18 11:56 Ccu Electrolyte (Replacement Protocol) 0 each FS PRN PRN PRN Reason: FOR ELECTROLYTE REPLACEMENT Pantoprazole Sodium (Protonix) 40 mg PER TUBE DAILY [facility] Last Admin: 01/11/18 09:04 Dose: 40 mg Potassium Chloride (K-Dur) 40 meq PO ASDIR PRN PRN Reason: FOR SERUM K+ 2.5 - 3.5 Potassium Chloride (Klor-Con) 40 meq PER TUBE ASDIR PRN PRN Reason: FOR SERUM K+ 2.5-3.5 Last Admin: 01/04/18 09:31 Dose: 40 meq Quetiapine Fumarate (Seroquel) 25 mg PER TUBE BID [facility] Last Admin: 01/11/18 09:05 Dose: 25 mg Sodium Bicarbonate (Bicarbonate, Sodium) 650 mg PER TUBE ASDIR PRN PRN Reason: TUBE OCCLUSION TX Sodium Chloride (Flush - Normal Saline) 10 ml IVF Q12HR [facility] Last Admin: 01/11/18 09:06 Dose: 10 ml Sodium Chloride (Flush - Normal Saline) 10 ml IVF PRN PRN PRN Reason: Saline Flush Last Admin: 01/07/18 23:42 Dose: 10 ml Sterile Water (Water For Injection) 0 ml FS BID [facility] Last Admin: 01/11/18 09:06 Dose: 10 ml Valproic Acid (Depakene Liquid) 500 mg PER TUBE TID [facility] Last Admin: 01/11/18 15:35 Dose: 500 mg
[2018-01-12] MEDS: fentaNYL Citrate/PF 2,000 MCG in Sodium Chloride 0.9% 60 ML IV SCH ×2 (02:10→23:50)
[2018-01-12 04:34] LABS: Anion Gap 11 mmol/L (10-20); BUN (Urea Nitrogen) 18 mg/dL (8.4-25.7); Calc. Creatinine Clearance 69 mL/min (70-130); Calcium 8.2 mg/dL (7.8-10.44); Carbon Dioxide 26 mmol/L (23-31); Chloride 100 mmol/L (98-107); Estimated GFR-MDRD Greater than 90; Glucose 130 mg/dL (83-110); Potassium 3.5 mmol/L (3.5-5.1); Sodium 133 mmol/L (136-145)
[2018-01-12 04:52] LABS: Band 18 % (5-11); Eosinophils 1 % (0-10); Hemoglobin 9.9 g/dL (14.0-18.0); Lymphocytes 10 % (21-51); MDiff Complete? YES; Mean Corpuscular HGB CONC 32.9 g/dL (32.0-36.0); Mean Corpuscular Volume 94.4 fL (78.0-98.0); Monocytes 24 % (0-10); Neutrophil 47 % (42-75); PLT Morphology Comment Appears Adequate; Platelet Count 178 thou/uL (130-400); Red Blood Cell (RBC) Count 3.17 mill/uL (4.70-6.10)
[2018-01-12] MEDS ORDERED: Vecuronium 10 MG VIAL IVP SCH (07:15)
[2018-01-12] MEDS ORDERED: Fentanyl 100 MCG/2 ML VIAL SLOW IVP PRN ×2 (07:15→07:16)
[2018-01-12] MEDS ORDERED: Midazolam HCl 5 mg/5 ml Vial IVPB PRN (07:15)
[2018-01-12] MEDS ORDERED: Midazolam HCl 2 mg/2 ml Vial IVP PRN (07:16)
[2018-01-12] MEDS: Budesonide 0.5 MG/2 ML NEB INH SCH ×2 (07:26→18:41)
[2018-01-12] MEDS ORDERED: Lidocaine 1% w/Epinephrine 1:200K 30 ML VIAL FS SCH (07:30)
[2018-01-12 07:49] LABS: Actual Bicarbonate (HCO3a) 24.7 mEq/L (22-28); Base Excess (BEa) 1.3 mEq/L (-2.0 to +3.0); CO2 Tension 34.5 mmHg (35.0-45.0); Calcium, Ionized 1.11 mmol/L (1.12-1.30); Carboxyhemoglobin (COHb) 1.1 gm% (0.0-3.0); Hemoglobin (Hb) 10.6 g/dL (14.0-18.0); O2 Tension (PaO2) 64.6 mmHg (> 70.0); Potassium - ABG Lab 3.41 mmol/L (3.70-5.30); pH, Arterial 7.47 (7.35-7.45)
[2018-01-12 07:53] LABS: ALV-art Gradient 141.825 (0-20)
[2018-01-12] MEDS ORDERED: Sterile Water 10 ML VIAL FS SCH (08:45)
[2018-01-12] MEDS ORDERED: Lidocaine 1% w/Epinephrine 1:100K 20 ML VIAL FS SCH (09:00)
[2018-01-12] MEDS ORDERED: CEFAZOLIN 1 GM in Sodium Chloride 0.9% 100 ML IVPB SCH (09:30)
[2018-01-12] MEDS ORDERED: Fentanyl 100 MCG/2 ML VIAL SLOW IVP SCH (09:37)
[2018-01-12] MEDS ORDERED: Midazolam HCl 2 mg/2 ml Vial IVP SCH (09:37)
--- NOTE | 2018-01-12 10:30 | PRG ---
DATE OF SERVICE: 01/12/2018 This is 35 minutes critical care time. The patient remains intubated on mechanical ventilation. I spent at least half an hour on the phone yesterday with a series of phone calls with his brother. I reviewed records from [place]. T he patient has moderate COPD with an FEV1 in the 55% range. Overall, his lungs are not that bad and we are just dealing with persistent encephalopathy. For that reason, I have consulted Dr. Conner and a trach and PEG are planned today in order to give the patient time. OBJECTIVE: GENERAL: Today, the patient is sedated heavily on mechanical ventilation in preparation for the trac heostomy. BASHIR; SIGNS: His temperature is 100.0 with a T-max of 100.8, pulse 108, blood pressure 118/53, O2 sa t 95%. Total intake for 24 hours 1439, output 2070. HEENT: Unremarkable. NECK: No JVD. LUNGS: Clear anteriorly. CARDIOVASCULAR: S1, S2 regular without audible murmur. ABDOMEN: Soft. EXTREMITIES: No edema. LABORATORY DATA: Sodium 133, potassium 3.5, chloride 100, CO2 of 26, BUN 18, creatinine 0.8, glucose 130. ABG result pending. White blood cell count 14, hematocrit 30, platelet count 178,000 with 47% neutrophils, 18% bands. ASSESSMENT: 1. Hypoxic respiratory failure, requiring mechanical ventilation. 2. Chronic obstructive pulmonary disease. 3. Probable withdrawal symptoms. 4. Encephalopathy. 5. Low-grade fever. PLAN: 1. Tracheostomy and PEG tube placement today. 2. Continue the Levaquin that was started yesterday. 3. Continue monitoring daily labs. 4. Stop the Diamox. 5. Consider neurology consult next week if patient continued to have problems even off mechanical ve ntilation.
[2018-01-12] MEDS: Valproate Sodium 250 mg/5 ml UD Cup PER TUBE SCH ×3 (13:07→20:42)
[2018-01-12] MEDS: Pantoprazole 40 MG GRANULES PACKET PER TUBE SCH (13:07)
--- NOTE | 2018-01-12 14:05 | PDOC.PN ---
- Subjective Encounter Start Date: 01/12/18 Encounter Start Time: 10:00 Pt seen for followup re: acute respiratory failure. Intubated, unable to complete ROS. - Objective Resuscitation Status: Resuscitation Status FULL:Full Resuscitation MAR Reviewed: Yes Vital Signs & Weight: Vital Signs (12 hours) Temp Pulse Resp BP Pulse Ox 01/12/18 13:14 109 H 25 H 99 01/12/18 12:00 98.7 F 113 H 22 H 132/56 L 99 01/12/18 10:00 25 H 01/12/18 08:00 20 98 01/12/18 07:27 102 H 106/50 L 01/12/18 07:26 102 H 22 H 100 01/12/18 07:24 102 H 22 H 100 01/12/18 06:00 20 01/12/18 04:00 100.0 F H 20 01/12/18 02:25 107 H 117/48 L Weight Admit Weight 137 lb 12.623 oz Weight 138 lb 3.677 oz Most Recent Monitor Data Heart Rate from ECG 108 NIBP 131/57 NIBP BP-Mean 81 Respiration from ECG 20 SpO2 99 I&O: 01/11/18 01/12/18 01/13/18 06:59 06:59 06:59 Intake Total 1074.5 1439 3.5 Output Total 3050 2070 435 Balance -1975.5 -631 -431.5 Result Diagrams: 01/12/18 04:09 01/12/18 04:09 Additional Labs: Accuchecks 01/12/18 01/12/18 01/11/18 10:43 03:32 22:48 POC Glucose 120 H 128 H 127 H 01/11/18 15:43 POC Glucose 146 H EKG Reviewed by me: Yes (Tele: NSR) Phys Exam - Physical Examination Intubated HEENT: moist MMs Respiratory: clear to auscultation bilateral Cardiovascular: RRR Gastrointestinal: soft Neurological: moves all 4 limbs Deviation from normal: Unable to assess Deviation from normal: tattoos Dx/Plan (1) Acute respiratory failure with hypercapnia Code(s): J96.02 - ACUTE RESPIRATORY FAILURE WITH HYPERCAPNIA Status: Acute Comment: On vent in CCU. For trach and PEG. (2) Diabetes mellitus Code(s): E11.9 - TYPE 2 DIABETES MELLITUS WITHOUT COMPLICATIONS Status: Chronic Comment: controlled - Plan * . Review of Systems - Medications/Allergies Allergies/Adverse Reactions: Allergies Allergy/AdvReac Type Severity Reaction Status Date / Time Penicillins Allergy Verified 12/30/17 09:59 Medications: Current Medications Albuterol/Ipratropium (Duoneb) 3 ml NEB [id number] [facility] Last Admin: 01/12/18 13:14 Dose: 3 ml Lipase/Protease/Amylase (Sanjuanita Santana [id number]) 1 cap PER TUBE ASDIR PRN PRN Reason: TUBE OCCLUSION TX Budesonide (Pulmicort Neb Solution) 0.5 mg INH BID-RT [facility] Last Admin: 01/12/18 07:26 Dose: 0.5 mg Dextrose/Water (Dextrose 50%) 25 gm SLOW IVP PRN PRN PRN Reason: Hypoglycemia Enoxaparin Sodium (Lovenox) 40 mg SC 09 [facility] Glucagon (Glucagon) 1 mg IM PRN PRN PRN Reason: Hypoglycemia Hydralazine HCl (Apresoline) 10 mg SLOW IVP Q4H PRN PRN Reason: Hypertension Last Admin: 01/04/18 01:41 Dose: 10 mg Dextrose/Water (D5w) 1,000 mls @ 0 mls/hr IV .Q0M PRN PRN Reason: Hypoglycemia Fentanyl Citrate 2,000 mcg/ (Sodium Chloride) 100 mls @ 0 mls/hr IV INF [facility]; Protocol Stop: 01/30/18 11:56 Last Admin: 01/12/18 02:10 Dose: 100 mls Fentanyl Citrate (Fentanyl Bolus) 250 mls @ 0 mls/hr IVPB PRN PRN PRN Reason: Breakthrough pain/agitation Stop: 01/30/18 11:56 Midazolam HCl (Versed) 100 mls @ 0 mls/hr IVPB INF [facility]; Protocol Last Admin: 01/10/18 12:15 Dose: 100 mls Potassium Chloride 40 meq/ (Sodium Chloride) 270 mls @ 135 mls/hr IVPB ASDIR PRN PRN Reason: FOR SERUM K+ 2.5 - 3.5 Potassium Chloride 40 meq/ (Device) 100 mls @ 50 mls/hr IVPB ASDIR PRN PRN Reason: FOR SERUM K+ 2.5 - 3.5 Magnesium Sulfate 1 gm/ Sodium (Chloride) 102 mls @ 102 mls/hr IV PRN PRN PRN Reason: MAG LEVEL 1.4 - 2.0 Magnesium Sulfate 2 gm/ Device 100 mls @ 100 mls/hr IVPB ASDIR PRN PRN Reason: MAGNESIUM < 1.4 Potassium Phosphate 9 mmol/ (Sodium Chloride) 103 mls @ 25.75 mls/hr IVPB ASDIR PRN PRN Reason: Phosphate 1.0-1.8 Potassium Phosphate 12 mmol/ (Sodium Chloride) 254 mls @ 63.5 mls/hr IV ASDIR PRN PRN Reason: Serum phosphate 0.5-0.9 Potassium Phosphate 15 mmol/ (Sodium Chloride) 255 mls @ 63.75 mls/hr IV ASDIR PRN PRN Reason: Serum Phos < 0.5 Levofloxacin 750 mg/ Device 150 mls @ 100 mls/hr IVPB 1800 [facility] Last Admin: 01/11/18 19:14 Dose: 150 mls Insulin Human Lispro (Humalog) 0 units SC .MILD SLIDING SCALE PRN PRN Reason: Mild Correctional Scale Last Admin: 01/05/18 17:20 Dose: 2 unit Lorazepam (Ativan) 2 mg SLOW IVP Q1H PRN PRN Reason: Breakthrough agitation Stop: 01/30/18 11:56 Last Admin: 01/08/18 23:11 Dose: 2 mg Magnesium Oxide (Magnesium Oxide) 400 mg PO BIDPRN PRN PRN Reason: FOR SERUM MAG 1.4 - 2.0 Magnesium Oxide (Magnesium Oxide) 800 mg PO PRN PRN PRN Reason: FOR SERUM MAG < 1.4 Miscellaneous Medication (Phos-Nak) 1 pkt PO TIDPRN PRN PRN Reason: FOR PHOS LEVEL 1.0 - 1.8 Miscellaneous Medication (Phos-Nak) 2 pkt PO TIDPRN PRN PRN Reason: FOR PHOS LEVEL 0.5 - 1.0 Discontinue Previous Narcotic Pain Medications And Benzodiazepines 1 each FS .ONE [facility] Stop: 01/30/18 11:56 Ccu Electrolyte (Replacement Protocol) 0 each FS PRN PRN PRN Reason: FOR ELECTROLYTE REPLACEMENT Pantoprazole Sodium (Protonix) 40 mg PER TUBE DAILY [facility] Last Admin: 01/12/18 13:07 Dose: 40 mg Potassium Chloride (K-Dur) 40 meq PO ASDIR PRN PRN Reason: FOR SERUM K+ 2.5 - 3.5 Potassium Chloride (Klor-Con) 40 meq PER TUBE ASDIR PRN PRN Reason: FOR SERUM K+ 2.5-3.5 Last Admin: 01/04/18 09:31 Dose: 40 meq Quetiapine Fumarate (Seroquel) 25 mg PER TUBE BID [facility] Last Admin: 01/12/18 13:07 Dose: 25 mg Sodium Bicarbonate (Bicarbonate, Sodium) 650 mg PER TUBE ASDIR PRN PRN Reason: TUBE OCCLUSION TX Sodium Chloride (Flush - Normal Saline) 10 ml IVF Q12HR [facility] Last Admin: 01/12/18 13:07 Dose: 10 ml Sodium Chloride (Flush - Normal Saline) 10 ml IVF PRN PRN PRN Reason: Saline Flush Last Admin: 01/07/18 23:42 Dose: 10 ml Valproic Acid (Depakene Liquid) 500 mg PER TUBE TID [facility] Last Admin: 01/12/18 13:07 Dose: 500 mg
[2018-01-12 15:03] LABS: Bilirubin Negative (Negative); Blood, Urine Large (Negative); Clarity CLEAR (Clear); Glucose, Urine (Dipstick) Negative (Negative); Leukocyte Negative (Negative); Nitrite Negative (Negative); Protein, Urine (Dipstick) 100 mg/dL (Neg-Trace); Specific Gravity, Urine 1.017 (1.002-1.036); pH, Urine 6.5 (5.0-9.0)
[2018-01-12 15:05] LABS: Bacteria/HPF None Seen HPF (None Seen); Hyaline Casts/LPF 0-3 HYALINE CAST LPF (0-3 Hyaline); Pathc Cast-AUWi Flag 0.43 (0-2.49); Squamous Epithelial 0-3 HPF (0-3)
[2018-01-12 15:07] LABS: Yeast-AUWi Flag 189.4 (0-25.0)
[2018-01-12] MEDS: Acetaminophen 650 MG/20.3 ML UDCUP PER TUBE PRN (15:15)
[2018-01-12 15:19] LABS: RBC/HPF 0-3 HPF (0-3); Yeast-All Forms 2+ HPF (None Seen)
--- NOTE | 2018-01-12 15:30 | RAD ---
UPRIGHT PORTABLE CHEST ONE VIEW: HISTORY: Intubation. Respiratory insufficiency. Fever. COMPARISON: 01/10/2018 FINDINGS: Tracheostomy tube. Right PICC line in place. Bilateral vascular congestion with increased linear an d interstitial markings without confluent pneumonia, overt edema, or significant pleural effusion. IMPRESSION: Increased linear and interstitial markings bilaterally, improved from prior 01/10/2018 study. No con fluent pneumonia. Continue short-term followup. POS: [facility]
[2018-01-12] MEDS: NS 0.9% w/ 20 MEQ KCL 1,000 ML IV SCH (16:02)
--- NOTE | 2018-01-12 23:19 | OP ---
DATE OF PROCEDURE: 01/12/2018 PREOPERATIVE DIAGNOSES: 1. Acute respiratory failure. 2. Chronic obstructive pulmonary disease. POSTOPERATIVE DIAGNOSES: 1. Acute respiratory failure. 2. Chronic obstructive pulmonary disease. OPERATIONS PERFORMED: 1. Percutaneous tracheostomy tube placement. 2. Percutaneous endoscopic gastrostomy tube placement. SURGEON: Lalo Conner D.O. ANESTHESIA: Deep sedation and local. INDICATIONS FOR PROCEDURE: A 77-year-old man admitted on 12/30/2017, following acute respiratory moncho lure. Multiple attempts to liberate the patient from the ventilator, has been unsuccessful. Tracheo stomy tube is warranted for potential prolonged mechanical ventilatory support and eventual liberatio n. Endoscopic gastrostomy tube placement is also indicated for prolonged enteral nutritional supplem entation. DESCRIPTION OF OPERATION: Informed consent obtained from the patient's power of tax associate attorney. The patie nt is placed in spine position. Anterior neck is sterilely prepped and draped in usual fashion. Ski n two fingerbreadths above the suprasternal notch was anesthetized with 1% lidocaine with epinephrine . At this juncture, fiberoptic bronchoscope was introduced through the previous endotracheal tube an d advanced to visualize the nathalia. This scope was then withdrawn and transilluminating the anterior neck. A 1 cm vertical incision was made 2 fingerbreadths above the suprasternal notch. This is acc omplished using a 15 scalpel. An introducer needle was then inserted through this and advanced throu gh the anterior tracheal wall visualized under bronchoscopy. Guidewire was passed through the needle and advanced into distal tracheal lumen without resistance. The needle was withdrawn over the guide -wire. The anterior tracheal wall is sterilely dilated over the guidewire. Finally, a dilator, intr oducer stylet and a size 8 tracheostomy tube was advanced as a unit over the guidewire and placed in the distal tracheal lumen without resistance. The dilator and the introducer stylet were withdrawn l eaving the tracheostomy tube in position. Tracheostomy tube was secured to anterior neck using old s ilk suture at 2 points. The patient is connected to mechanical ventilator support via newly placed t racheostomy tube, noting good return of tidal volume. The bronchoscope was withdrawn with the previo us endotracheal tube as a unit visualizing the tracheostomy site from above with good hemostasis. Br onchoscope was then reintroduced through the newly placed tracheostomy tube and advanced to visualize the nathalia. The scope was withdrawn, visualizing the tracheostomy site from below. No active bleed ing noted. Tracheostomy dressings and tie were then applied. The patient remained hemodynamically s table following completion of this procedure. Oxygen saturation was 100% throughout the procedure. We then turned our attention to the abdomen for the placement of the percutaneous endoscopic gastrost latosha tube. With new gown and gloves, after adequate sedation has been achieved, the endoscope was adv anced orally intubated in the esophagus. With gentle insufflation, the scope was advanced into the s tomach, which was then insufflated. Scope was advanced into the proximal duodenum, finding no ulcera tions. The endoscope was withdrawn into the gastric lumen and left upper quadrant of the abdomen was transilluminated for the area chosen for placement of the PEG tube. Skin is anesthetized here with 1% lidocaine. A stab incision is made using an 11 scalpel. Introducer needle was inserted through t his and advanced into the gastric lumen under direct endoscopy. Guidewire was passed through the nee dle and advanced into the gastric lumen, this was captured with an Endo snare through the endoscope. The guidewire and the scope was withdrawn per oral and then a guidewire was then connected to a 20-F rench gastrostomy tube. The distal end of the wire was pulled out through the skin and the gastrosto my tube is secured at the skin using a bolster at 3 cm. The gastrostomy tube is fashioned to length. The endoscope was again reintroduced into the gastric lumen, visualizing the mushroom end of the ga strostomy tube as he states blood in the gastric wall. Finding no other pathology, endoscopy was ter minated. The gastrostomy site was noted without any active bleeding. The stomach was desufflated. Endoscope was withdrawn, visualizing intact esophageal mucosa. The patient tolerated this operation without any apparent complication and remains hemodynamically stable following completion of the proc edure.
[2018-01-13] MEDS: NS 0.9% w/ 20 MEQ KCL 1,000 ML IV SCH ×3 (00:32→16:09)
[2018-01-13 05:07] LABS: Anion Gap 11 mmol/L (10-20); BUN (Urea Nitrogen) 13 mg/dL (8.4-25.7); Calc. Creatinine Clearance 86 mL/min (70-130); Calcium 8.2 mg/dL (7.8-10.44); Carbon Dioxide 24 mmol/L (23-31); Chloride 103 mmol/L (98-107); Estimated GFR-MDRD Greater than 90; Glucose 104 mg/dL (83-110); Potassium 3.8 mmol/L (3.5-5.1); Sodium 134 mmol/L (136-145)
[2018-01-13 05:50] LABS: Band 1 % (5-11); Hemoglobin 9.6 g/dL (14.0-18.0); Hypochromia SLIGHT = 6-15 cells (100X) (0-5/hpf); Lymphocytes 9 % (21-51); MDiff Complete? YES; Mean Corpuscular HGB CONC 31.7 g/dL (32.0-36.0); Mean Corpuscular Hemoglobin 29.9 pg (27.0-31.0); Mean Corpuscular Volume 94.4 fL (78.0-98.0); Mean Platelet Volume 7.7 fL (7.4-10.4); Monocytes 8 % (0-10); Neutrophil 82 % (42-75); PLT Morphology Comment Appears Adequate; Platelet Count 169 thou/uL (130-400)
[2018-01-13] MEDS: Budesonide 0.5 MG/2 ML NEB INH SCH ×2 (08:16→18:44)
[2018-01-13] MEDS: Pantoprazole 40 MG GRANULES PACKET PER TUBE SCH (08:31)
[2018-01-13] MEDS: Valproate Sodium 250 mg/5 ml UD Cup PER TUBE SCH ×3 (08:31→21:17)
--- NOTE | 2018-01-13 10:52 | PRG ---
DATE OF SERVICE: 01/13/2018 SUBJECTIVE: This morning, status post trach and PEG. He is on a CPAP. He is doing well. OBJECTIVE: VITAL SIGNS: Pulse is 100, blood pressure is 150/80, sats are 96, respirations 20. He is encephalop athic. He is afebrile. CHEST: Reveals no wheezing or crackles. CARDIAC: Normal S1 and S2, no gallops. ABDOMEN: Soft, no masses. LABORATORY DATA: White count 14,000, H and H is 9 and 30, platelet count 169. Electrolytes are norm al. IMPRESSION: 1. Status post tracheostomy and PEG. 2. Respiratory failure. 3. Chronic obstructive pulmonary disease. 4. Encephalopathy. PLAN: Trial of trach collar. Discontinue all sedation. Supportive care, steroids, neb treatments, antibiotics, PT. Nutrition in the next 24-48 hours. We will follow. [id number] critical care time.
--- NOTE | 2018-01-13 12:34 | EKG ---
Test Reason : Blood Pressure : / mmHG Vent. Rate : 068 BPM Atrial Rate : 068 BPM P-R Int : 142 ms QRS Dur : 076 ms QT Int : 394 ms P-R-T Axes : 073 073 074 degrees QTc Int : 418 ms Normal sinus rhythm Normal ECG Confirmed by ADENIKE DAMON, ERNESTINE ([id number]), editor & co founder LUCIO MAYER ([id number]) on 01/13/2018 12:34:02 PM Referred By: Confirmed By:ERNESTINE JEONG MD
[2018-01-13] MEDS ORDERED: risperiDONE 0.25 MG TAB PO SCH (13:00)
[2018-01-13] MEDS: Acetaminophen 650 MG/20.3 ML UDCUP PER TUBE PRN (15:53)
--- NOTE | 2018-01-13 16:46 | PDOC.PN ---
- Subjective Encounter Start Date: 01/13/18 Encounter Start Time: 10:00 Pt seen for acute hypercapnic resp failure. Non verbal, unable to complete ROS. - Objective Resuscitation Status: Resuscitation Status FULL:Full Resuscitation MAR Reviewed: Yes Vital Signs & Weight: Vital Signs (12 hours) Pulse Resp BP Pulse Ox 01/13/18 16:00 33 H 01/13/18 14:18 109 H 150/80 H 01/13/18 14:00 31 H 01/13/18 12:40 102 H 33 H 96 01/13/18 12:00 23 H 01/13/18 11:25 96 114/53 L 01/13/18 09:55 95 01/13/18 08:18 101 H 136/62 01/13/18 08:16 101 H 29 H 99 01/13/18 08:14 101 H 29 H 99 01/13/18 08:00 19 97 01/13/18 06:00 17 Weight Admit Weight 137 lb 12.623 oz Weight 139 lb 12.369 oz Most Recent Monitor Data Heart Rate from ECG 111 NIBP 170/72 NIBP BP-Mean 104 Respiration from ECG 30 SpO2 93 I&O: 01/12/18 01/13/18 01/14/18 06:59 06:59 06:59 Intake Total 1439 2552.4 Output Total 2070 1935 880 Balance -631 617.4 -880 Result Diagrams: 01/13/18 04:45 01/13/18 04:45 Additional Labs: Accuchecks 01/13/18 01/13/18 01/13/18 16:21 10:11 04:46 POC Glucose 119 H 120 H 103 01/12/18 01/12/18 22:23 16:39 POC Glucose 120 H 142 H EKG Reviewed by me: Yes (Tele: sinus tachycardia) Phys Exam - Physical Examination Nonverbal HEENT: moist MMs trach+ Respiratory: clear to auscultation bilateral S1, s2, tachy Gastrointestinal: soft PEG tube Neurological: moves all 4 limbs Deviation from normal: Unable to assess Dx/Plan (1) Acute respiratory failure with hypercapnia Code(s): J96.02 - ACUTE RESPIRATORY FAILURE WITH HYPERCAPNIA Status: Acute Comment: Had trachesostomy and PEG placement yesterday (2) Diabetes mellitus Code(s): E11.9 - TYPE 2 DIABETES MELLITUS WITHOUT COMPLICATIONS Status: Chronic Comment: controlled - Plan * . Review of Systems - Medications/Allergies Allergies/Adverse Reactions: Allergies Allergy/AdvReac Type Severity Reaction Status Date / Time Penicillins Allergy Verified 12/30/17 09:59 Medications: Current Medications Acetaminophen (Tylenol Elixir) 650 mg PER TUBE Q6H PRN PRN Reason: Headache/Fever or Pain Last Admin: 01/13/18 15:53 Dose: 650 mg Albuterol/Ipratropium (Duoneb) 3 ml NEB [id number] [facility] Last Admin: 01/13/18 12:40 Dose: 3 ml Lipase/Protease/Amylase ([place] [id number]) 1 cap PER TUBE ASDIR PRN PRN Reason: TUBE OCCLUSION TX Budesonide (Pulmicort Neb Solution) 0.5 mg INH BID-RT [facility] Last Admin: 01/13/18 08:16 Dose: 0.5 mg Dextrose/Water (Dextrose 50%) 25 gm SLOW IVP PRN PRN PRN Reason: Hypoglycemia Enoxaparin Sodium (Lovenox) 40 mg SC 0900 [facility] Glucagon (Glucagon) 1 mg IM PRN PRN PRN Reason: Hypoglycemia Hydralazine HCl (Apresoline) 10 mg SLOW IVP Q4H PRN PRN Reason: Hypertension Last Admin: 01/04/18 01:41 Dose: 10 mg Dextrose/Water (D5w) 1,000 mls @ 0 mls/hr IV .Q0M PRN PRN Reason: Hypoglycemia Fentanyl Citrate 2,000 mcg/ (Sodium Chloride) 100 mls @ 0 mls/hr IV INF [facility]; Protocol Stop: 01/30/18 11:56 Last Admin: 01/12/18 23:50 Dose: 100 mls Fentanyl Citrate (Fentanyl Bolus) 250 mls @ 0 mls/hr IVPB PRN PRN PRN Reason: Breakthrough pain/agitation Stop: 01/30/18 11:56 Potassium Chloride 40 meq/ (Sodium Chloride) 270 mls @ 135 mls/hr IVPB ASDIR PRN PRN Reason: FOR SERUM K+ 2.5 - 3.5 Potassium Chloride 40 meq/ (Device) 100 mls @ 50 mls/hr IVPB ASDIR PRN PRN Reason: FOR SERUM K+ 2.5 - 3.5 Magnesium Sulfate 1 gm/ Sodium (Chloride) 102 mls @ 102 mls/hr IV PRN PRN PRN Reason: MAG LEVEL 1.4 - 2.0 Magnesium Sulfate 2 gm/ Device 100 mls @ 100 mls/hr IVPB ASDIR PRN PRN Reason: MAGNESIUM < 1.4 Potassium Phosphate 9 mmol/ (Sodium Chloride) 103 mls @ 25.75 mls/hr IVPB ASDIR PRN PRN Reason: Phosphate 1.0-1.8 Potassium Phosphate 12 mmol/ (Sodium Chloride) 254 mls @ 63.5 mls/hr IV ASDIR PRN PRN Reason: Serum phosphate 0.5-0.9 Potassium Phosphate 15 mmol/ (Sodium Chloride) 255 mls @ 63.75 mls/hr IV ASDIR PRN PRN Reason: Serum Phos < 0.5 Levofloxacin 750 mg/ Device 150 mls @ 100 mls/hr IVPB 1800 [facility] Last Admin: 01/12/18 17:40 Dose: 150 mls Potassium Chloride/Sodium Chloride (Ns 0.9% W/ 20 Meq Kcl) 1,000 mls @ 125 mls/ hr IV .Q8H [facility] Last Admin: 01/13/18 16:09 Dose: 1,000 mls Insulin Human Lispro (Humalog) 0 units SC .MILD SLIDING SCALE PRN PRN Reason: Mild Correctional Scale Last Admin: 01/05/18 17:20 Dose: 2 unit Lorazepam (Ativan) 2 mg SLOW IVP Q1H PRN PRN Reason: Breakthrough agitation Stop: 01/30/18 11:56 Last Admin: 01/08/18 23:11 Dose: 2 mg Magnesium Oxide (Magnesium Oxide) 400 mg PO BIDPRN PRN PRN Reason: FOR SERUM MAG 1.4 - 2.0 Magnesium Oxide (Magnesium Oxide) 800 mg PO PRN PRN PRN Reason: FOR SERUM MAG < 1.4 Miscellaneous Medication (Phos-Nak) 1 pkt PO TIDPRN PRN PRN Reason: FOR PHOS LEVEL 1.0 - 1.8 Miscellaneous Medication (Phos-Nak) 2 pkt PO TIDPRN PRN PRN Reason: FOR PHOS LEVEL 0.5 - 1.0 Discontinue Previous Narcotic Pain Medications And Benzodiazepines 1 each FS .ONE [facility] Stop: 01/30/18 11:56 Ccu Electrolyte (Replacement Protocol) 0 each FS PRN PRN PRN Reason: FOR ELECTROLYTE REPLACEMENT Pantoprazole Sodium (Protonix) 40 mg PER TUBE DAILY [facility] Last Admin: 01/13/18 08:31 Dose: 40 mg Potassium Chloride (K-Dur) 40 meq PO ASDIR PRN PRN Reason: FOR SERUM K+ 2.5 - 3.5 Potassium Chloride (Klor-Con) 40 meq PER TUBE ASDIR PRN PRN Reason: FOR SERUM K+ 2.5-3.5 Last Admin: 01/04/18 09:31 Dose: 40 meq Quetiapine Fumarate (Seroquel) 25 mg PER TUBE BID [facility] Last Admin: 01/13/18 08:32 Dose: 25 mg Risperidone (Risperidone) 0.25 mg PO BID [facility] Sodium Bicarbonate (Bicarbonate, Sodium) 650 mg PER TUBE ASDIR PRN PRN Reason: TUBE OCCLUSION TX Sodium Chloride (Flush - Normal Saline) 10 ml IVF Q12HR [facility] Last Admin: 01/13/18 08:32 Dose: 10 ml Sodium Chloride (Flush - Normal Saline) 10 ml IVF PRN PRN PRN Reason: Saline Flush Last Admin: 01/07/18 23:42 Dose: 10 ml Valproic Acid (Depakene Liquid) 500 mg PER TUBE TID [facility] Last Admin: 01/13/18 15:54 Dose: 500 mg
[2018-01-13] MEDS: risperiDONE 0.25 MG TAB PO SCH (21:17)
[2018-01-13] MEDS: Lorazepam 2 MG/ML VIAL SLOW IVP PRN (22:24)
[2018-01-14] MEDS: NS 0.9% w/ 20 MEQ KCL 1,000 ML IV SCH ×3 (01:56→18:23)
[2018-01-14] MEDS: Acetaminophen 650 MG/20.3 ML UDCUP PER TUBE PRN ×2 (03:44→18:24)
[2018-01-14 04:26] LABS: Band 18 % (5-11); Hemoglobin 9.2 g/dL (14.0-18.0); Lymphocytes 3 % (21-51); MDiff Complete? YES; Mean Corpuscular HGB CONC 32.4 g/dL (32.0-36.0); Mean Corpuscular Hemoglobin 30.4 pg (27.0-31.0); Mean Corpuscular Volume 94.1 fL (78.0-98.0); Mean Platelet Volume 7.6 fL (7.4-10.4); Monocytes 15 % (0-10); Neutrophil 64 % (42-75); PLT Morphology Comment Appears Adequate; Platelet Count 163 thou/uL (130-400); RBC Distribution Width 13.3 % (11.5-14.5); Red Blood Cell (RBC) Count 3.01 mill/uL (4.70-6.10); White Blood Cell (WBC) Count 11.9 thou/uL (4.8-10.8)
[2018-01-14 04:30] LABS: Anion Gap 11 mmol/L (10-20); BUN (Urea Nitrogen) 10 mg/dL (8.4-25.7); Calc. Creatinine Clearance 96 mL/min (70-130); Calcium 8.3 mg/dL (7.8-10.44); Carbon Dioxide 23 mmol/L (23-31); Chloride 108 mmol/L (98-107); Estimated GFR-MDRD Greater than 90; Glucose 140 mg/dL (83-110); Potassium 3.5 mmol/L (3.5-5.1); Sodium 138 mmol/L (136-145)
[2018-01-14] MEDS: Budesonide 0.5 MG/2 ML NEB INH SCH ×2 (07:48→18:43)
[2018-01-14 07:59] LABS: Actual Bicarbonate (HCO3a) 22.3 mEq/L (22-28); Base Excess (BEa) -0.4 mEq/L (-2.0 to +3.0); CO2 Tension 29.8 mmHg (35.0-45.0); Calcium, Ionized 1.13 mmol/L (1.12-1.30); Carboxyhemoglobin (COHb) 0.7 gm% (0.0-3.0); Hemoglobin (Hb) 10.1 g/dL (14.0-18.0); O2 Tension (PaO2) 105.6 mmHg (> 70.0); Potassium - ABG Lab 3.94 mmol/L (3.70-5.30); pH, Arterial 7.49 (7.35-7.45)
[2018-01-14 08:00] LABS: Puncture Site RRA
[2018-01-14] MEDS: Pantoprazole 40 MG GRANULES PACKET PER TUBE SCH (10:17)
[2018-01-14] MEDS: risperiDONE 0.25 MG TAB PO SCH ×2 (10:18→21:32)
[2018-01-14] MEDS: Valproate Sodium 250 mg/5 ml UD Cup PER TUBE SCH ×3 (10:19→21:28)
[2018-01-14] MEDS: Enoxaparin Sodium 40 MG/0.4 ML SYRINGE SC SCH (10:19)
--- NOTE | 2018-01-14 12:45 | PRG ---
DATE OF SERVICE: 01/14/2018 SUBJECTIVE: This morning, he is doing better. OBJECTIVE: VITAL SIGNS: His respiratory drive is down to 25 with a rate of 8. His pulse is 108. Blood pressur e is 120/80. GENERAL: He opens his eyes. CHEST: Reveals bilateral rhonchi. CARDIAC: Sinus tachycardia. ABDOMEN: Soft. NEUROLOGIC: Neurologically, he is encephalopathic. LABORATORY DATA: His white count is 11,000, H&H is 9 and 28, platelet count 163. His PO2 is 105, PC O2 , on a rate of 8, 35%. Electrolytes are normal. IMPRESSION: 1. Metabolic encephalopathy. 2. Respiratory failure. 3. Underlying chronic obstructive pulmonary disease. PLAN: Continue low dose risperidone. Decrease the vent to rate of 4. Hopefully, we can put him on CPAP tomorrow. We will follow. One-half hour critical care time.
--- NOTE | 2018-01-14 17:59 | PDOC.PN ---
- Subjective Encounter Start Date: 01/14/18 Encounter Start Time: 09:20 Pt seen for followup re: hypercapnic respiratory failure. Pt is nonverbal, unable to obtain ROS. - Objective Resuscitation Status: Resuscitation Status FULL:Full Resuscitation Vital Signs & Weight: Vital Signs (12 hours) Pulse Resp BP Pulse Ox 01/14/18 15:57 107 H 155/69 H 01/14/18 14:29 101 H 48 H 164/80 H 100 01/14/18 14:00 32 H 01/14/18 12:00 44 H 01/14/18 10:00 24 H 01/14/18 08:00 30 H 01/14/18 07:49 99 161/66 H 01/14/18 07:48 102 H 32 H 100 01/14/18 07:47 102 H 32 H 100 01/14/18 06:00 41 H Weight Admit Weight 137 lb 12.623 oz Weight 145 lb 1.027 oz Most Recent Monitor Data Heart Rate from ECG 113 NIBP 179/87 NIBP BP-Mean 117 Respiration from ECG 32 SpO2 100 I&O: 01/13/18 01/14/18 01/15/18 06:59 06:59 06:59 Intake Total 2552.4 2357 30 Output Total 1935 1860 900 Balance 617.4 -413 -870 Result Diagrams: 01/14/18 03:58 01/14/18 03:58 Additional Labs: Accuchecks 01/13/18 22:31 POC Glucose 111 H Phys Exam - Physical Examination HEENT: moist MMs Trach Respiratory: clear to auscultation bilateral Cardiovascular: RRR, no rub Gastrointestinal: soft PEG tube Neurological: moves all 4 limbs Deviation from normal: Unable to assess Dx/Plan (1) Acute respiratory failure with hypercapnia Code(s): J96.02 - ACUTE RESPIRATORY FAILURE WITH HYPERCAPNIA Status: Acute Comment: Had trachesostomy and PEG placement yesterday (2) Diabetes mellitus Code(s): E11.9 - TYPE 2 DIABETES MELLITUS WITHOUT COMPLICATIONS Status: Chronic Comment: controlled - Plan * . Review of Systems - Medications/Allergies Allergies/Adverse Reactions: Allergies Allergy/AdvReac Type Severity Reaction Status Date / Time Penicillins Allergy Verified 12/30/17 09:59 Medications: Current Medications Acetaminophen (Tylenol Elixir) 650 mg PER TUBE Q6H PRN PRN Reason: Headache/Fever or Pain Last Admin: 01/14/18 03:44 Dose: 650 mg Albuterol/Ipratropium (Duoneb) 3 ml NEB [id number] [facility] Last Admin: 01/14/18 14:29 Dose: 3 ml Lipase/Protease/Amylase ([place] [id number]) 1 cap PER TUBE ASDIR PRN PRN Reason: TUBE OCCLUSION TX Budesonide (Pulmicort Neb Solution) 0.5 mg INH BID-RT [facility] Last Admin: 01/14/18 07:48 Dose: 0.5 mg Dextrose/Water (Dextrose 50%) 25 gm SLOW IVP PRN PRN PRN Reason: Hypoglycemia Enoxaparin Sodium (Lovenox) 40 mg SC 0900 [facility] Last Admin: 01/14/18 10:19 Dose: 40 mg Glucagon (Glucagon) 1 mg IM PRN PRN PRN Reason: Hypoglycemia Hydralazine HCl (Apresoline) 10 mg SLOW IVP Q4H PRN PRN Reason: Hypertension Last Admin: 01/04/18 01:41 Dose: 10 mg Dextrose/Water (D5w) 1,000 mls @ 0 mls/hr IV .Q0M PRN PRN Reason: Hypoglycemia Fentanyl Citrate 2,000 mcg/ (Sodium Chloride) 100 mls @ 0 mls/hr IV INF [facility]; Protocol Stop: 01/30/18 11:56 Last Admin: 01/12/18 23:50 Dose: 100 mls Fentanyl Citrate (Fentanyl Bolus) 250 mls @ 0 mls/hr IVPB PRN PRN PRN Reason: Breakthrough pain/agitation Stop: 01/30/18 11:56 Potassium Chloride 40 meq/ (Sodium Chloride) 270 mls @ 135 mls/hr IVPB ASDIR PRN PRN Reason: FOR SERUM K+ 2.5 - 3.5 Potassium Chloride 40 meq/ (Device) 100 mls @ 50 mls/hr IVPB ASDIR PRN PRN Reason: FOR SERUM K+ 2.5 - 3.5 Last Admin: 01/14/18 06:05 Dose: 100 mls Magnesium Sulfate 1 gm/ Sodium (Chloride) 102 mls @ 102 mls/hr IV PRN PRN PRN Reason: MAG LEVEL 1.4 - 2.0 Magnesium Sulfate 2 gm/ Device 100 mls @ 100 mls/hr IVPB ASDIR PRN PRN Reason: MAGNESIUM < 1.4 Potassium Phosphate 9 mmol/ (Sodium Chloride) 103 mls @ 25.75 mls/hr IVPB ASDIR PRN PRN Reason: Phosphate 1.0-1.8 Potassium Phosphate 12 mmol/ (Sodium Chloride) 254 mls @ 63.5 mls/hr IV ASDIR PRN PRN Reason: Serum phosphate 0.5-0.9 Potassium Phosphate 15 mmol/ (Sodium Chloride) 255 mls @ 63.75 mls/hr IV ASDIR PRN PRN Reason: Serum Phos < 0.5 Levofloxacin 750 mg/ Device 150 mls @ 100 mls/hr IVPB 1800 [facility] Last Admin: 01/13/18 17:17 Dose: 150 mls Potassium Chloride/Sodium Chloride (Ns 0.9% W/ 20 Meq Kcl) 1,000 mls @ 125 mls/ hr IV .Q8H [facility] Last Admin: 01/14/18 10:20 Dose: 1,000 mls Insulin Human Lispro (Humalog) 0 units SC .MILD SLIDING SCALE PRN PRN Reason: Mild Correctional Scale Last Admin: 01/05/18 17:20 Dose: 2 unit Lorazepam (Ativan) 2 mg SLOW IVP Q1H PRN PRN Reason: Breakthrough agitation Stop: 01/30/18 11:56 Last Admin: 01/13/18 22:24 Dose: 2 mg Magnesium Oxide (Magnesium Oxide) 400 mg PO BIDPRN PRN PRN Reason: FOR SERUM MAG 1.4 - 2.0 Magnesium Oxide (Magnesium Oxide) 800 mg PO PRN PRN PRN Reason: FOR SERUM MAG < 1.4 Miscellaneous Medication (Phos-Nak) 1 pkt PO TIDPRN PRN PRN Reason: FOR PHOS LEVEL 1.0 - 1.8 Miscellaneous Medication (Phos-Nak) 2 pkt PO TIDPRN PRN PRN Reason: FOR PHOS LEVEL 0.5 - 1.0 Discontinue Previous Narcotic Pain Medications And Benzodiazepines 1 each FS .ONE [facility] Stop: 01/30/18 11:56 Ccu Electrolyte (Replacement Protocol) 0 each FS PRN PRN PRN Reason: FOR ELECTROLYTE REPLACEMENT Pantoprazole Sodium (Protonix) 40 mg PER TUBE DAILY [facility] Last Admin: 01/14/18 10:17 Dose: 40 mg Potassium Chloride (K-Dur) 40 meq PO ASDIR PRN PRN Reason: FOR SERUM K+ 2.5 - 3.5 Potassium Chloride (Klor-Con) 40 meq PER TUBE ASDIR PRN PRN Reason: FOR SERUM K+ 2.5-3.5 Last Admin: 01/04/18 09:31 Dose: 40 meq Quetiapine Fumarate (Seroquel) 25 mg PER TUBE BID [facility] Last Admin: 01/14/18 10:18 Dose: 25 mg Risperidone (Risperidone) 0.25 mg PO BID [facility] Last Admin: 01/14/18 10:18 Dose: 0.25 mg Sodium Bicarbonate (Bicarbonate, Sodium) 650 mg PER TUBE ASDIR PRN PRN Reason: TUBE OCCLUSION TX Sodium Chloride (Flush - Normal Saline) 10 ml IVF Q12HR [facility] Last Admin: 01/13/18 21:19 Dose: 10 ml Sodium Chloride (Flush - Normal Saline) 10 ml IVF PRN PRN PRN Reason: Saline Flush Last Admin: 01/07/18 23:42 Dose: 10 ml Valproic Acid (Depakene Liquid) 500 mg PER TUBE TID [facility] Last Admin: 01/14/18 16:36 Dose: 500 mg
[2018-01-15] MEDS: NS 0.9% w/ 20 MEQ KCL 1,000 ML IV SCH (02:07)
[2018-01-15] MEDS: Lorazepam 2 MG/ML VIAL SLOW IVP PRN ×2 (04:04→16:44)
[2018-01-15 04:19] LABS: #Eosinphils 0.1 thou/uL (0.0-0.7); #Lymphocytes 0.6 thou/uL (1.20-3.40); #Monocytes 1.4 thou/uL (0.11-0.59); %Basophils 0.1 % (0.0-1.0); %Eosinophils 0.6 % (0.0-10.0); %Lymphocytes 6.1 % (21.0-51.0); %Monocytes 14.2 % (0.0-10.0); %Neutrophils 79.1 % (42.0-75.0); Hemoglobin 9.6 g/dL (14.0-18.0); Mean Corpuscular HGB CONC 32.3 g/dL (32.0-36.0); Mean Corpuscular Hemoglobin 30.6 pg (27.0-31.0); Mean Corpuscular Volume 94.9 fL (78.0-98.0); Mean Platelet Volume 7.5 fL (7.4-10.4); Platelet Count 167 thou/uL (130-400); RBC Distribution Width 13.4 % (11.5-14.5); Red Blood Cell (RBC) Count 3.14 mill/uL (4.70-6.10); White Blood Cell (WBC) Count 10.1 thou/uL (4.8-10.8)
[2018-01-15 04:49] LABS: Anion Gap 10 mmol/L (10-20); BUN (Urea Nitrogen) 9 mg/dL (8.4-25.7); Calc. Creatinine Clearance 101 mL/min (70-130); Calcium 8.7 mg/dL (7.8-10.44); Carbon Dioxide 25 mmol/L (23-31); Chloride 108 mmol/L (98-107); Estimated GFR-MDRD Greater than 90; Glucose 115 mg/dL (83-110); Magnesium 1.8 mg/dL (1.6-2.6); Sodium 139 mmol/L (136-145)
[2018-01-15] MEDS: hydrALAZINE 20 MG/ML VIAL SLOW IVP PRN ×2 (05:28→15:01)
[2018-01-15] MEDS: Budesonide 0.5 MG/2 ML NEB INH SCH (06:32)
[2018-01-15 06:52] LABS: Base Excess (BEa) 2.2 mEq/L (-2.0 to +3.0); CO2 Tension 28.4 mmHg (35.0-45.0); Calcium, Ionized 1.11 mmol/L (1.12-1.30); Carboxyhemoglobin (COHb) 0.5 gm% (0.0-3.0); Hemoglobin (Hb) 10.8 g/dL (14.0-18.0); O2 Tension (PaO2) 89.5 mmHg (> 70.0); Potassium - ABG Lab 3.83 mmol/L (3.70-5.30)
[2018-01-15 06:53] LABS: Puncture Site LR; pH, Arterial 7.55 (7.35-7.45)
[2018-01-15] MEDS ORDERED: Vecuronium 10 MG VIAL IVP SCH (07:45)
[2018-01-15] MEDS ORDERED: Sterile Water 10 ML VIAL FS SCH (08:00)
[2018-01-15] MEDS: Pantoprazole 40 MG GRANULES PACKET PER TUBE SCH (09:05)
[2018-01-15] MEDS: Valproate Sodium 250 mg/5 ml UD Cup PER TUBE SCH ×3 (09:05→21:17)
[2018-01-15] MEDS: risperiDONE 0.25 MG TAB PO SCH ×2 (09:06→21:17)
[2018-01-15] MEDS: Enoxaparin Sodium 40 MG/0.4 ML SYRINGE SC SCH (09:06)
[2018-01-15] MEDS: fentaNYL 75 mcg/hour Patch TD SCH (09:39)
--- NOTE | 2018-01-15 10:32 | PRG ---
DATE OF SERVICE: 01/15/2018 Thirty-five minutes critical care time. SUBJECTIVE: The patient remains on mechanical ventilation. Trach and PEG placed on Monday. PHYSICAL EXAMINATION: VITAL SIGNS: Temperature is 99.3, pulse 118, blood pressure 106/86. A 24-hour intake 3868, output 3 460. HEENT: Unremarkable. NECK: Without adenopathy or JVD. LUNGS: Clear without wheezing. CARDIAC: S1 and S2 regular. ABDOMEN: Soft. EXTREMITIES: No edema. LABORATORY DATA: Sodium 139, potassium 4, chloride 109, CO2 25, BUN 9, creatinine 0.8, glucose 115, magnesium 2.0, white blood cell count 10, hematocrit 29.8, platelet count 167, pH 7.55, pCO2 28, pO2 89 on SIMV rate 4, tidal volume 500, PEEP 5, pressure support 10, FiO2 35%. ASSESSMENT: 1. Persistent encephalopathy despite discontinuation of his IV fentanyl and Versed. 2. Acute hypoxic respiratory failure requiring mechanical ventilation and tracheostomy. 3. Chronic obstructive pulmonary disease. 4. Likely withdrawal symptoms. PLAN: 1. We will check an MRI today as a final test to look at his overall brain function to see whether o r not he may have had a stroke. 2. 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 3. Continue the Levaquin for the time being. 4. Increase respiratory rate to 12 on ventilator, as he will have to be paralyzed for the MRI.
[2018-01-15] MEDS: Lorazepam 1 MG TAB PER TUBE SCH ×3 (11:59→23:32)
[2018-01-15] MEDS ORDERED: Gadobenate Dimeglumine 529 MG/1 ML (20ML VIAL) ONE (12:29)
--- NOTE | 2018-01-15 12:57 | PDOC.PN ---
- Subjective Encounter Start Date: 01/15/18 Encounter Start Time: 09:40 Pt seen for followup re: acute hypercapnic respiratory failure. s/p trach, not opening eyes or answering questions, unable to complete ROS. - Objective Resuscitation Status: Resuscitation Status FULL:Full Resuscitation MAR Reviewed: Yes Vital Signs & Weight: Vital Signs (12 hours) Pulse Resp BP Pulse Ox 01/15/18 12:13 103 H 23 H 100 01/15/18 12:00 24 H 01/15/18 10:11 122 H 138/63 01/15/18 10:00 24 H 01/15/18 08:00 53 H 100 01/15/18 06:33 119 H 156/86 H 01/15/18 06:31 118 H 38 H 100 01/15/18 06:00 47 H 01/15/18 05:28 109 H 01/15/18 04:00 40 H 01/15/18 02:33 109 H 01/15/18 02:00 29 H Weight Admit Weight 137 lb 12.623 oz Weight 142 lb 13.753 oz Most Recent Monitor Data Heart Rate from ECG 104 NIBP 138/63 NIBP BP-Mean 88 Respiration from ECG 10 SpO2 100 I&O: 01/14/18 01/15/18 01/16/18 06:59 06:59 06:59 Intake Total 2357 3868 583 Output Total 2770 3460 1150 Balance -413 408 -567 Result Diagrams: 01/15/18 03:56 01/15/18 03:56 Additional Labs: Accuchecks 01/14/18 01/14/18 22:05 15:54 POC Glucose 148 H 123 H EKG Reviewed by me: Yes (Tele: sinus tachycardia) Phys Exam - Physical Examination Lethargy HEENT: moist MMs tracheostomy Respiratory: clear to auscultation bilateral S1, s2, tachy, reg Gastrointestinal: soft, positive bowel sounds PEG tube Neurological: moves all 4 limbs Deviation from normal: Unable to assess Dx/Plan (1) Acute respiratory failure with hypercapnia Code(s): J96.02 - ACUTE RESPIRATORY FAILURE WITH HYPERCAPNIA Status: Acute Comment: s/p trachesostomy and PEG placement, in CCU (2) Diabetes mellitus Code(s): E11.9 - TYPE 2 DIABETES MELLITUS WITHOUT COMPLICATIONS Status: Chronic Comment: controlled - Plan * . Pt awaiting MRI brain Review of Systems - Medications/Allergies Allergies/Adverse Reactions: Allergies Allergy/AdvReac Type Severity Reaction Status Date / Time Penicillins Allergy Verified 12/30/17 09:59 Medications: Current Medications Acetaminophen (Tylenol Elixir) 650 mg PER TUBE Q6H PRN PRN Reason: Headache/Fever or Pain Last Admin: 01/14/18 18:24 Dose: 650 mg Albuterol/Ipratropium (Duoneb) 3 ml NEB [id number] [facility] Last Admin: 01/15/18 12:13 Dose: 3 ml Lipase/Protease/Amylase ([place] [id number]) 1 cap PER TUBE ASDIR PRN PRN Reason: TUBE OCCLUSION TX Dextrose/Water (Dextrose 50%) 25 gm SLOW IVP PRN PRN PRN Reason: Hypoglycemia Enoxaparin Sodium (Lovenox) 40 mg SC 0900 [facility] Last Admin: 01/15/18 09:06 Dose: 40 mg Fentanyl (Duragesic) 75 mcg TD Q3D@0800 [facility] Last Admin: 01/15/18 09:39 Dose: 75 mcg Glucagon (Glucagon) 1 mg IM PRN PRN PRN Reason: Hypoglycemia Hydralazine HCl (Apresoline) 10 mg SLOW IVP Q4H PRN PRN Reason: Hypertension Last Admin: 01/15/18 05:28 Dose: 10 mg Dextrose/Water (D5w) 1,000 mls @ 0 mls/hr IV .Q0M PRN PRN Reason: Hypoglycemia Fentanyl Citrate 2,000 mcg/ (Sodium Chloride) 100 mls @ 0 mls/hr IV INF [facility]; Protocol Stop: 01/30/18 11:56 Last Admin: 01/12/18 23:50 Dose: 100 mls Fentanyl Citrate (Fentanyl Bolus) 250 mls @ 0 mls/hr IVPB PRN PRN PRN Reason: Breakthrough pain/agitation Stop: 01/30/18 11:56 Potassium Chloride 40 meq/ (Sodium Chloride) 270 mls @ 135 mls/hr IVPB ASDIR PRN PRN Reason: FOR SERUM K+ 2.5 - 3.5 Potassium Chloride 40 meq/ (Device) 100 mls @ 50 mls/hr IVPB ASDIR PRN PRN Reason: FOR SERUM K+ 2.5 - 3.5 Last Admin: 01/14/18 06:05 Dose: 100 mls Magnesium Sulfate 1 gm/ Sodium (Chloride) 102 mls @ 102 mls/hr IV PRN PRN PRN Reason: MAG LEVEL 1.4 - 2.0 Magnesium Sulfate 2 gm/ Device 100 mls @ 100 mls/hr IVPB ASDIR PRN PRN Reason: MAGNESIUM < 1.4 Potassium Phosphate 9 mmol/ (Sodium Chloride) 103 mls @ 25.75 mls/hr IVPB ASDIR PRN PRN Reason: Phosphate 1.0-1.8 Potassium Phosphate 12 mmol/ (Sodium Chloride) 254 mls @ 63.5 mls/hr IV ASDIR PRN PRN Reason: Serum phosphate 0.5-0.9 Potassium Phosphate 15 mmol/ (Sodium Chloride) 255 mls @ 63.75 mls/hr IV ASDIR PRN PRN Reason: Serum Phos < 0.5 Levofloxacin 750 mg/ Device 150 mls @ 100 mls/hr IVPB 1800 [facility] Last Admin: 01/14/18 18:24 Dose: 150 mls Insulin Human Lispro (Humalog) 0 units SC .MILD SLIDING SCALE PRN PRN Reason: Mild Correctional Scale Last Admin: 01/05/18 17:20 Dose: 2 unit Lorazepam (Ativan) 2 mg SLOW IVP Q1H PRN PRN Reason: Breakthrough agitation Stop: 01/30/18 11:56 Last Admin: 01/15/18 04:04 Dose: 2 mg Lorazepam (Ativan) 2 mg PER TUBE Q6HR [facility] Last Admin: 01/15/18 11:59 Dose: 2 mg Magnesium Oxide (Magnesium Oxide) 400 mg PO BIDPRN PRN PRN Reason: FOR SERUM MAG 1.4 - 2.0 Magnesium Oxide (Magnesium Oxide) 800 mg PO PRN PRN PRN Reason: FOR SERUM MAG < 1.4 Miscellaneous Medication (Phos-Nak) 1 pkt PO TIDPRN PRN PRN Reason: FOR PHOS LEVEL 1.0 - 1.8 Miscellaneous Medication (Phos-Nak) 2 pkt PO TIDPRN PRN PRN Reason: FOR PHOS LEVEL 0.5 - 1.0 Ccu Electrolyte (Replacement Protocol) 0 each FS PRN PRN PRN Reason: FOR ELECTROLYTE REPLACEMENT Pantoprazole Sodium (Protonix) 40 mg PER TUBE DAILY [facility] Last Admin: 01/15/18 09:05 Dose: 40 mg Potassium Chloride (K-Dur) 40 meq PO ASDIR PRN PRN Reason: FOR SERUM K+ 2.5 - 3.5 Potassium Chloride (Klor-Con) 40 meq PER TUBE ASDIR PRN PRN Reason: FOR SERUM K+ 2.5-3.5 Last Admin: 01/04/18 09:31 Dose: 40 meq Quetiapine Fumarate (Seroquel) 50 mg PER TUBE BID [facility] Last Admin: 01/15/18 09:05 Dose: 50 mg Risperidone (Risperidone) 0.25 mg PO BID [facility] Last Admin: 01/15/18 09:06 Dose: 0.25 mg Sodium Bicarbonate (Bicarbonate, Sodium) 650 mg PER TUBE ASDIR PRN PRN Reason: TUBE OCCLUSION TX Sodium Chloride (Flush - Normal Saline) 10 ml IVF Q12HR [facility] Last Admin: 01/15/18 09:06 Dose: 10 ml Sodium Chloride (Flush - Normal Saline) 10 ml IVF PRN PRN PRN Reason: Saline Flush Last Admin: 01/07/18 23:42 Dose: 10 ml Sterile Water (Water For Injection) 10 ml FS WILLCALL [facility] Stop: 01/15/18 21:00 Last Admin: 01/15/18 12:49 Dose: 10 ml Valproic Acid (Depakene Liquid) 500 mg PER TUBE TID [facility] Last Admin: 01/15/18 09:05 Dose: 500 mg Vecuronium [place] (Norcuron) 10 mg IVP [facility] Stop: 01/15/18 21:00 Last Admin: 01/15/18 12:49 Dose: 10 mg
--- NOTE | 2018-01-15 16:03 | MRI ---
MRI BRAIN WITH AND WITHOUT IV CONTRAST: HISTORY: Encephalopathy, unresponsive for an unknown amount of time. FINDINGS: There is ventricular sulcal prominence due to cortical atrophy. There are a few scattered foci of T2 prolongation in the periventricular white matter consistent with mild chronic small-vessel ischemic disease. No restricted [id number] is seen. No evidence of infarct, hemorrhage, mass, midline shift, or abnormal extraaxial fluid collection is noted. No abnormal post contrast enhancement is seen. T here is fluid in the mastoid air cells bilaterally. Mild mucosal disease is seen in the paranasal si nuses. There is a mucous retention cyst in the posterior nasopharynx. IMPRESSION: 1. No evidence of acute intracranial process or mass. 2. Bilateral mastoid effusions and mucous retention cyst in the nasopharynx. POS: NICOLETTE
[2018-01-15] MEDS: Acetaminophen 650 MG/20.3 ML UDCUP PER TUBE PRN (23:44)
[2018-01-16 04:09] LABS: Anion Gap 10 mmol/L (10-20); BUN (Urea Nitrogen) 12 mg/dL (8.4-25.7); Calc. Creatinine Clearance 96 mL/min (70-130); Calcium 8.7 mg/dL (7.8-10.44); Carbon Dioxide 29 mmol/L (23-31); Chloride 101 mmol/L (98-107); Estimated GFR-MDRD Greater than 90; Glucose 105 mg/dL (83-110); Potassium 3.5 mmol/L (3.5-5.1); Sodium 136 mmol/L (136-145)
[2018-01-16] MEDS: Lorazepam 1 MG TAB PER TUBE SCH ×3 (06:41→17:11)
--- NOTE | 2018-01-16 08:25 | PRG ---
DATE OF SERVICE: 01/16/2018 Thirty-five minutes critical care time. The patient remains on mechanical ventilation. This morning I can get him to make eye contact to sylvester neal. He followed with his head. He did not follow any commands for me specifically other than that i nteraction. PHYSICAL EXAMINATION: VITAL SIGNS: His temperature is 98.4 with a T-max of 100.2, pulse 92, blood pressure 113/54. Total intake for the last 24 hours 1320, output 2596. HEENT: Pupils react. Sclerae icteric. Oropharynx clear. NECK: Trach in good position. LUNGS: Clear. CARDIAC: S1, S2, slightly tachycardic. ABDOMEN: Soft. EXTREMITIES: No edema. LABORATORY DATA: Sodium 136, potassium 3.5, chloride 101, CO2 of 29, BUN 12, creatinine 0.6, glucose 105. Brain MRI yesterday was essentially negative. ASSESSMENT: 1. Acute respiratory failure requiring mechanical ventilation. 2. Chronic obstructive pulmonary disease. 3. Encephalopathy. PLAN: 1. I plan to stop the valproic acid and Risperdal. Continue the Ativan and Seroquel. 2. Try T-collar trials. 3. Continue fentanyl patch. 4. Up in a chair. 5. I am trying to reach the patient's brother to confirm DNR wishes that were conveyed to the nurse over the weekend.
[2018-01-16] MEDS: Pantoprazole 40 MG GRANULES PACKET PER TUBE SCH (08:59)
[2018-01-16] MEDS: Enoxaparin Sodium 40 MG/0.4 ML SYRINGE SC SCH (09:00)
[2018-01-16] MEDS: Acetaminophen 650 MG/20.3 ML UDCUP PER TUBE PRN (17:11)
--- NOTE | 2018-01-16 18:57 | PDOC.PN ---
- Subjective Encounter Start Date: 01/16/18 Encounter Start Time: 13:00 Subjective: pt on trach - Objective Resuscitation Status: Resuscitation Status FULL:Full Resuscitation Vital Signs & Weight: Vital Signs (12 hours) Temp Pulse Resp BP Pulse Ox 01/16/18 18:23 108 H 75/44 L 01/16/18 18:22 109 H 18 01/16/18 16:00 124 H 28 H 153/69 H 01/16/18 12:08 121 H 38 H 95 01/16/18 12:00 99.5 F 01/16/18 08:00 96 01/16/18 07:21 97 126/58 L 01/16/18 07:20 97 33 H 100 Weight Admit Weight 137 lb 12.623 oz Weight 143 lb 8.335 oz Most Recent Monitor Data Heart Rate from ECG 113 NIBP 75/44 NIBP BP-Mean 54 Respiration from ECG 26 SpO2 100 I&O: 01/15/18 01/16/18 01/17/18 06:59 06:59 06:59 Intake Total 3868 1320 120 Output Total 3460 2597 720 Balance 408 -5197 -600 Result Diagrams: 01/15/18 03:56 01/16/18 03:40 Phys Exam - Physical Examination Neck: no nodes, no JVD, supple, full ROM Respiratory: no wheezing, no rales, no rhonchi, wheezing present, clear to auscultation bilateral Cardiovascular: RRR, no significant murmur, no rub, gallop, irregular Gastrointestinal: soft, non-tender, no distention, positive bowel sounds Musculoskeletal: edema present Dx/Plan (1) Acute respiratory failure with hypercapnia Code(s): J96.02 - ACUTE RESPIRATORY FAILURE WITH HYPERCAPNIA Status: Acute Comment: s/p trachesostomy and PEG placement, in CCU (2) Agitation requiring sedation protocol Code(s): R45.1 - RESTLESSNESS AND AGITATION Status: Acute Comment: Failed doses of ativan, morphine and then Pecedex gtt. Reintubated and on Diprivan with good results. (3) COPD (chronic obstructive pulmonary disease) Status: Acute Comment: Nebs, steroids. (4) Diabetes mellitus Code(s): E11.9 - TYPE 2 DIABETES MELLITUS WITHOUT COMPLICATIONS Status: Chronic Comment: controlled (5) Alcohol abuse Code(s): F10.10 - ALCOHOL ABUSE, UNCOMPLICATED Status: Acute (6) Aspiration pneumonia Code(s): J69.0 - PNEUMONITIS DUE TO INHALATION OF FOOD AND VOMIT Status: Resolved - Plan mri brain no acute changes -: pt only turns head when his name is called -: pt still does not follow any commands * . Review of Systems - Review of Systems Other: unable to obtain - Medications/Allergies Allergies/Adverse Reactions: Allergies Allergy/AdvReac Type Severity Reaction Status Date / Time Penicillins Allergy Verified 12/30/17 09:59 Medications: Current Medications Acetaminophen (Tylenol Elixir) 650 mg PER TUBE Q6H PRN PRN Reason: Headache/Fever or Pain Last Admin: 01/16/18 17:11 Dose: 650 mg Albuterol/Ipratropium (Duoneb) 3 ml NEB [id number] [facility] Last Admin: 01/16/18 18:22 Dose: 3 ml Lipase/Protease/[place] ([place] [id number]) 1 cap PER TUBE ASDIR PRN PRN Reason: TUBE OCCLUSION TX Dextrose/Water (Dextrose 50%) 25 gm SLOW IVP PRN PRN PRN Reason: Hypoglycemia Enoxaparin Sodium (Lovenox) 40 mg SC 0900 [facility] Last Admin: 01/16/18 09:00 Dose: 40 mg Fentanyl (Duragesic) 75 mcg TD Q3D@0800 [facility] Last Admin: 01/15/18 09:39 Dose: 75 mcg Glucagon (Glucagon) 1 mg IM PRN PRN PRN Reason: Hypoglycemia Hydralazine HCl (Apresoline) 10 mg SLOW IVP Q4H PRN PRN Reason: Hypertension Last Admin: 01/15/18 15:01 Dose: 10 mg Dextrose/Water (D5w) 1,000 mls @ 0 mls/hr IV .Q0M PRN PRN Reason: Hypoglycemia Fentanyl Citrate 2,000 mcg/ (Sodium Chloride) 100 mls @ 0 mls/hr IV INF [facility]; Protocol Stop: 01/30/18 11:56 Last Admin: 01/12/18 23:50 Dose: 100 mls Fentanyl Citrate (Fentanyl Bolus) 250 mls @ 0 mls/hr IVPB PRN PRN PRN Reason: Breakthrough pain/agitation Stop: 01/30/18 11:56 Potassium Chloride 40 meq/ (Sodium Chloride) 270 mls @ 135 mls/hr IVPB ASDIR PRN PRN Reason: FOR SERUM K+ 2.5 - 3.5 Potassium Chloride 40 meq/ (Device) 100 mls @ 50 mls/hr IVPB ASDIR PRN PRN Reason: FOR SERUM K+ 2.5 - 3.5 Last Admin: 01/14/18 06:05 Dose: 100 mls Magnesium Sulfate 1 gm/ Sodium (Chloride) 102 mls @ 102 mls/hr IV PRN PRN PRN Reason: MAG LEVEL 1.4 - 2.0 Magnesium Sulfate 2 gm/ Device 100 mls @ 100 mls/hr IVPB ASDIR PRN PRN Reason: MAGNESIUM < 1.4 Potassium Phosphate 9 mmol/ (Sodium Chloride) 103 mls @ 25.75 mls/hr IVPB ASDIR PRN PRN Reason: Phosphate 1.0-1.8 Potassium Phosphate 12 mmol/ (Sodium Chloride) 254 mls @ 63.5 mls/hr IV ASDIR PRN PRN Reason: Serum phosphate 0.5-0.9 Potassium Phosphate 15 mmol/ (Sodium Chloride) 255 mls @ 63.75 mls/hr IV ASDIR PRN PRN Reason: Serum Phos < 0.5 Levofloxacin 750 mg/ Device 150 mls @ 100 mls/hr IVPB 1800 [facility] Last Admin: 01/16/18 17:11 Dose: 150 mls Insulin Human Lispro (Humalog) 0 units SC .MILD SLIDING SCALE PRN PRN Reason: Mild Correctional Scale Last Admin: 01/05/18 17:20 Dose: 2 unit Lorazepam (Ativan) 2 mg SLOW IVP Q1H PRN PRN Reason: Breakthrough agitation Stop: 01/30/18 11:56 Last Admin: 01/15/18 16:44 Dose: 2 mg Lorazepam (Ativan) 2 mg PER TUBE Q6HR [facility] Last Admin: 01/16/18 17:11 Dose: 2 mg Magnesium Oxide (Magnesium Oxide) 400 mg PO BIDPRN PRN PRN Reason: FOR SERUM MAG 1.4 - 2.0 Magnesium Oxide (Magnesium Oxide) 800 mg PO PRN PRN PRN Reason: FOR SERUM MAG < 1.4 Miscellaneous Medication (Phos-Nak) 1 pkt PO TIDPRN PRN PRN Reason: FOR PHOS LEVEL 1.0 - 1.8 Miscellaneous Medication (Phos-Nak) 2 pkt PO TIDPRN PRN PRN Reason: FOR PHOS LEVEL 0.5 - 1.0 Ccu Electrolyte (Replacement Protocol) 0 each FS PRN PRN PRN Reason: FOR ELECTROLYTE REPLACEMENT Pantoprazole Sodium (Protonix) 40 mg PER TUBE DAILY [facility] Last Admin: 01/16/18 08:59 Dose: 40 mg Potassium Chloride (K-Dur) 40 meq PO ASDIR PRN PRN Reason: FOR SERUM K+ 2.5 - 3.5 Potassium Chloride (Klor-Con) 40 meq PER TUBE ASDIR PRN PRN Reason: FOR SERUM K+ 2.5-3.5 Last Admin: 01/04/18 09:31 Dose: 40 meq Quetiapine Fumarate (Seroquel) 50 mg PER TUBE BID [facility] Last Admin: 01/16/18 08:59 Dose: 50 mg Sodium Bicarbonate (Bicarbonate, Sodium) 650 mg PER TUBE ASDIR PRN PRN Reason: TUBE OCCLUSION TX Sodium Chloride (Flush - Normal Saline) 10 ml IVF Q12HR [facility] Last Admin: 01/16/18 09:00 Dose: 10 ml Sodium Chloride (Flush - Normal Saline) 10 ml IVF PRN PRN PRN Reason: Saline Flush Last Admin: 01/07/18 23:42 Dose: 10 ml
[2018-01-17] MEDS: Lorazepam 1 MG TAB PER TUBE SCH ×4 (00:26→18:08)
[2018-01-17] MEDS: Acetaminophen 650 MG/20.3 ML UDCUP PER TUBE PRN ×2 (03:09→18:07)
--- NOTE | 2018-01-17 08:28 | PRG ---
DATE OF SERVICE: 01/17/2018 Thirty-five minutes critical care time. The patient remains on mechanical ventilation through tracheostomy. He will open his eyes to voice, he will not follow any commands specifically. PHYSICAL EXAMINATION: VITAL SIGNS: On exam, he had a low grade temperature all night with the highest being 101.1, pulse i s 115, blood pressure 152/73. 24 hour intake 1075, output 1715, weight 141 pounds. HEENT: Pupils react. Sclerae anicteric. Oropharynx clear. NECK: No JVD. Trach in good position. LUNGS: Clear anteriorly. CARDIOVASCULAR: S1, S2 regular. ABDOMEN: Soft, nontender. EXTREMITIES: No edema. LABORATORY DATA: Sodium 136, potassium 3.5, chloride 102, CO2 of 29, BUN 12, creatinine 0.6, glucose 105. ASSESSMENT: 1. Unchanged clinical status. 2. Acute respiratory failure requiring mechanical ventilation. 3. Chronic obstructive pulmonary disease. 4. Encephalopathy. PLAN: I will decrease the dose of the Seroquel. I will decrease the dose of the scheduled Ativan. We will get him up in a chair. Wound Care has been consulted as he has some early tissue changes to his sacral area. I discussed the case with the patient's brother in detail yesterday. When I addres sed DNR status with the patient's brother yesterday he was not inclined to put a DNR order in, but I later got a message for Palliative Care saying he was inclined to do so. I think the patient's disposition going to be dictated by his neurologic status. If we see some impr ovement, I think that an LTAC would be a possibility. If mental status has not changed then I think we might need to head towards palliative care measures.
[2018-01-17] MEDS: Enoxaparin Sodium 40 MG/0.4 ML SYRINGE SC SCH (09:15)
[2018-01-17] MEDS: Pantoprazole 40 MG GRANULES PACKET PER TUBE SCH (09:15)
[2018-01-17 10:34] LABS: Anion Gap 13 mmol/L (10-20); BUN (Urea Nitrogen) 13 mg/dL (8.4-25.7); Calc. Creatinine Clearance 88 mL/min (70-130); Calcium 8.7 mg/dL (7.8-10.44); Carbon Dioxide 26 mmol/L (23-31); Chloride 98 mmol/L (98-107); Estimated GFR-MDRD Greater than 90; Glucose 138 mg/dL (83-110); Potassium 3.7 mmol/L (3.5-5.1); Sodium 133 mmol/L (136-145)
[2018-01-17 13:23] VITALS: BMI 23.6
--- NOTE | 2018-01-17 15:16 | PDOC.PN ---
- Subjective Encounter Start Date: 01/17/18 Encounter Start Time: 11:30 Subjective: pt in bed back on the vent - Objective Resuscitation Status: Resuscitation Status DNR:Do Not Resuscitate Vital Signs & Weight: Vital Signs (12 hours) Pulse Resp BP Pulse Ox 01/17/18 15:04 109 H 129/64 01/17/18 13:37 105 H 135/62 01/17/18 13:36 104 H 18 99 01/17/18 08:00 20 01/17/18 06:42 111 H 152/73 H 01/17/18 06:39 112 H 29 H 99 01/17/18 06:00 21 H 01/17/18 04:00 19 Weight Admit Weight 137 lb 12.623 oz Weight 141 lb 12.116 oz Most Recent Monitor Data Heart Rate from ECG 105 NIBP 144/69 NIBP BP-Mean 94 Respiration from ECG 28 SpO2 99 I&O: 01/16/18 01/17/18 01/18/18 06:59 06:59 06:59 Intake Total 1320 1075 220 Output Total 2596 1715 540 Balance -1276 -640 -320 Result Diagrams: 01/15/18 03:56 01/17/18 09:52 Phys Exam - Physical Examination Neck: no nodes, no JVD, supple, full ROM mild rhonchi all over Cardiovascular: RRR, no significant murmur, no rub, gallop, irregular Gastrointestinal: soft, positive bowel sounds Dx/Plan (1) Acute respiratory failure with hypercapnia Code(s): J96.02 - ACUTE RESPIRATORY FAILURE WITH HYPERCAPNIA Status: Acute Comment: s/p trachesostomy and PEG placement, in CCU (2) Agitation requiring sedation protocol Code(s): R45.1 - RESTLESSNESS AND AGITATION Status: Acute Comment: Failed doses of ativan, morphine and then Pecedex gtt. Reintubated and on Diprivan with good results. (3) COPD (chronic obstructive pulmonary disease) Status: Acute Comment: Nebs, steroids. (4) Diabetes mellitus Code(s): E11.9 - TYPE 2 DIABETES MELLITUS WITHOUT COMPLICATIONS Status: Chronic Comment: controlled (5) Alcohol abuse Code(s): F10.10 - ALCOHOL ABUSE, UNCOMPLICATED Status: Acute (6) Aspiration pneumonia Code(s): J69.0 - PNEUMONITIS DUE TO INHALATION OF FOOD AND VOMIT Status: Resolved - Plan pt's still not following commands -: pt back on vent -: pt now is a DNR * . Review of Systems - Review of Systems Other: unable to do - Medications/Allergies Allergies/Adverse Reactions: Allergies Allergy/AdvReac Type Severity Reaction Status Date / Time Penicillins Allergy Verified 12/30/17 09:59 Medications: Current Medications Acetaminophen (Tylenol Elixir) 650 mg PER TUBE Q6H PRN PRN Reason: Headache/Fever or Pain Last Admin: 01/17/18 03:09 Dose: 650 mg Albuterol/Ipratropium (Duoneb) 3 ml NEB [id number] [facility] Last Admin: 01/17/18 13:36 Dose: 3 ml Lipase/Protease/Amylase ([place] [id number]) 1 cap PER TUBE ASDIR PRN PRN Reason: TUBE OCCLUSION TX Dextrose/Water (Dextrose 50%) 25 gm SLOW IVP PRN PRN PRN Reason: Hypoglycemia Enoxaparin Sodium (Lovenox) 40 mg SC 0900 [facility] Last Admin: 01/17/18 09:15 Dose: 40 mg Fentanyl (Duragesic) 75 mcg TD Q3D@0800 [facility] Last Admin: 01/15/18 09:39 Dose: 75 mcg Glucagon (Glucagon) 1 mg IM PRN PRN PRN Reason: Hypoglycemia Hydralazine HCl (Apresoline) 10 mg SLOW IVP Q4H PRN PRN Reason: Hypertension Last Admin: 01/15/18 15:01 Dose: 10 mg Dextrose/Water (D5w) 1,000 mls @ 0 mls/hr IV .Q0M PRN PRN Reason: Hypoglycemia Fentanyl Citrate 2,000 mcg/ (Sodium Chloride) 100 mls @ 0 mls/hr IV INF [facility]; Protocol Stop: 01/30/18 11:56 Last Admin: 01/12/18 23:50 Dose: 100 mls Fentanyl Citrate (Fentanyl Bolus) 250 mls @ 0 mls/hr IVPB PRN PRN PRN Reason: Breakthrough pain/agitation Stop: 01/30/18 11:56 Potassium Chloride 40 meq/ (Sodium Chloride) 270 mls @ 135 mls/hr IVPB ASDIR PRN PRN Reason: FOR SERUM K+ 2.5 - 3.5 Potassium Chloride 40 meq/ (Device) 100 mls @ 50 mls/hr IVPB ASDIR PRN PRN Reason: FOR SERUM K+ 2.5 - 3.5 Last Admin: 01/14/18 06:05 Dose: 100 mls Magnesium Sulfate 1 gm/ Sodium (Chloride) 102 mls @ 102 mls/hr IV PRN PRN PRN Reason: MAG LEVEL 1.4 - 2.0 Magnesium Sulfate 2 gm/ Device 100 mls @ 100 mls/hr IVPB ASDIR PRN PRN Reason: MAGNESIUM < 1.4 Potassium Phosphate 9 mmol/ (Sodium Chloride) 103 mls @ 25.75 mls/hr IVPB ASDIR PRN PRN Reason: Phosphate 1.0-1.8 Potassium Phosphate 12 mmol/ (Sodium Chloride) 254 mls @ 63.5 mls/hr IV ASDIR PRN PRN Reason: Serum phosphate 0.5-0.9 Potassium Phosphate 15 mmol/ (Sodium Chloride) 255 mls @ 63.75 mls/hr IV ASDIR PRN PRN Reason: Serum Phos < 0.5 Levofloxacin 750 mg/ Device 150 mls @ 100 mls/hr IVPB 1800 [facility] Last Admin: 01/16/18 17:11 Dose: 150 mls Insulin Human Lispro (Humalog) 0 units SC .MILD SLIDING SCALE PRN PRN Reason: Mild Correctional Scale Last Admin: 01/05/18 17:20 Dose: 2 unit Lorazepam (Ativan) 1 mg PER TUBE Q6HR [facility] Last Admin: 01/17/18 11:52 Dose: 1 mg Magnesium Oxide (Magnesium Oxide) 400 mg PO BIDPRN PRN PRN Reason: FOR SERUM MAG 1.4 - 2.0 Magnesium Oxide (Magnesium Oxide) 800 mg PO PRN PRN PRN Reason: FOR SERUM MAG < 1.4 Miscellaneous Medication (Phos-Nak) 1 pkt PO TIDPRN PRN PRN Reason: FOR PHOS LEVEL 1.0 - 1.8 Miscellaneous Medication (Phos-Nak) 2 pkt PO TIDPRN PRN PRN Reason: FOR PHOS LEVEL 0.5 - 1.0 Ccu Electrolyte (Replacement Protocol) 0 each FS PRN PRN PRN Reason: FOR ELECTROLYTE REPLACEMENT Pantoprazole Sodium (Protonix) 40 mg PER TUBE DAILY [facility] Last Admin: 01/17/18 09:15 Dose: 40 mg Potassium Chloride (K-Dur) 40 meq PO ASDIR PRN PRN Reason: FOR SERUM K+ 2.5 - 3.5 Potassium Chloride (Klor-Con) 40 meq PER TUBE ASDIR PRN PRN Reason: FOR SERUM K+ 2.5-3.5 Last Admin: 01/04/18 09:31 Dose: 40 meq Quetiapine Fumarate (Seroquel) 25 mg PER TUBE BID [facility] Last Admin: 01/17/18 09:15 Dose: 25 mg Sodium Bicarbonate (Bicarbonate, Sodium) 650 mg PER TUBE ASDIR PRN PRN Reason: TUBE OCCLUSION TX Sodium Chloride (Flush - Normal Saline) 10 ml IVF Q12HR [facility] Last Admin: 01/17/18 09:15 Dose: 10 ml Sodium Chloride (Flush - Normal Saline) 10 ml IVF PRN PRN PRN Reason: Saline Flush Last Admin: 01/07/18 23:42 Dose: 10 ml
[2018-01-18] MEDS: Lorazepam 1 MG TAB PER TUBE SCH ×3 (00:45→11:47)
[2018-01-18] MEDS ORDERED: Ondansetron HCl/PF 4 MG/2 ML Vial SLOW IVP PRN (00:48)
[2018-01-18 04:50] LABS: Anion Gap 9 mmol/L (10-20); BUN (Urea Nitrogen) 14 mg/dL (8.4-25.7); Calc. Creatinine Clearance 83 mL/min (70-130); Calcium 9.1 mg/dL (7.8-10.44); Carbon Dioxide 33 mmol/L (23-31); Chloride 96 mmol/L (98-107); Estimated GFR-MDRD Greater than 90; Glucose 103 mg/dL (83-110); Potassium 3.3 mmol/L (3.5-5.1); Sodium 135 mmol/L (136-145)
[2018-01-18 05:45] LABS: Band 22 % (5-11); Eosinophils 2 % (0-10); Hemoglobin 9.5 g/dL (14.0-18.0); Lymphocytes 11 % (21-51); MDiff Complete? YES; Mean Corpuscular Hemoglobin 30.2 pg (27.0-31.0); Mean Corpuscular Volume 94.2 fL (78.0-98.0); Mean Platelet Volume 7.2 fL (7.4-10.4); Monocytes 8 % (0-10); Neutrophil 57 % (42-75); Platelet Count 172 thou/uL (130-400); RBC Distribution Width 13.7 % (11.5-14.5); Red Blood Cell (RBC) Count 3.13 mill/uL (4.70-6.10); White Blood Cell (WBC) Count 11.7 thou/uL (4.8-10.8)
[2018-01-18] MEDS ORDERED: Scopolamine 1.5 mg/72 hour Patch TD SCH (07:30)
--- NOTE | 2018-01-18 07:38 | PRG ---
DATE OF SERVICE: 01/18/2018 Thirty-five minutes critical care time. He remains on mechanical ventilation through tracheostomy. PHYSICAL EXAMINATION: VITAL SIGNS: On exam, his T-max was 99.8, pulse 121, blood pressure 140/68. 24 hour intake 1721, ou tput 1565, weight 132 pounds. HEENT: Unremarkable. NECK: Trach in good position. LUNGS: Coarse rhonchi. CARDIOVASCULAR: S1, S2, slightly tachycardic. ABDOMEN: Soft, nontender. EXTREMITIES: No clubbing, cyanosis, or edema. LABORATORY DATA: White blood cell count 11.7, hematocrit 29.5, platelet count 172. Sodium 135, pota ssium 3.3, chloride 96, CO2 33, BUN 14, creatinine 0.6, glucose 103. ASSESSMENT: 1. Continued encephalopathy despite weaning of most of his medications down to the bare minimum. 2. Acute respiratory failure requiring mechanical ventilation through tracheostomy. PLAN: I think the plan should be to pursue LTAC placement and give him time to see if his mental sta tus improves. His brother did make him DNR yesterday. The patient will continue Levaquin through to day and it will be stopped tomorrow.
[2018-01-18] MEDS: Pantoprazole 40 MG GRANULES PACKET PER TUBE SCH (08:41)
[2018-01-18] MEDS: Enoxaparin Sodium 40 MG/0.4 ML SYRINGE SC SCH (08:41)
[2018-01-18] MEDS: fentaNYL 75 mcg/hour Patch TD SCH (10:24)
[2018-01-18 12:49] VITALS: BP 122/59
[2018-01-18 13:10] VITALS: TEMP 99.5
--- NOTE | 2018-01-19 00:39 | DIS ---
DATE OF ADMISSION: 12/30/2017 DATE OF DISCHARGE: 01/18/2018 DISCHARGE DIAGNOSES: 1. Acute hypoxic respiratory failure. 2. Agitation, requiring sedation. 3. Chronic obstructive pulmonary disease. 4. Diabetes. 5. Alcohol abuse. 6. Aspiration pneumonia. HOSPITAL COURSE: The patient is a very pleasant 77-year-old male, who initially was brought into the hospital by the EMS intubated. The patient has a history of COPD and is oxygen dependent on 2 liter s of nasal cannula and was found by his friend on the floor with no oxygen. At this time, EMS was ca lled and EMS intubated him on the field and brought him to the hospital for further evaluation. The patient initially was treated for sepsis criteria, was given IV antibiotics and fluids, and was admit vaughn into the ICU for further evaluation. The patient's overall respiratory status continued to not i mprove. He was not weanable. His mentation also did not improve significantly. There were several concerns that this could be either secondary to opioids withdrawal; however, no clear definition in t erms for his agitation was noted while he was in the ICU. The patient's brother who is in [place] did make the patient DNR; however, did agree on a trach and a PEG placement. The patient also had a brain MRI that was done in 01/15/2018, which indicated no evidence of acute intracranial process, ju st indicated some bilateral mastoid effusion that was noted. The patient at this time was discharged to an LTAC facility for recovery. His home medications will be as the following: He is going to be on propranolol 60 mg daily, fentany l patch 75 mcg every third day, scopolamine 1.5 every third day, Seroquel 25 mg b.i.d., Phosphorus 2 packs t.i.d. p.r.n., Protonix 40 mg per tube daily, Pancrelipase 1 cap per tube p.r.n., mag oxide 800 mg p.r.n., Ativan 1 mg per tube q.6. hours, and DuoNeb 3 mL q.6 hours. PHYSICAL EXAMINATION: VITAL SIGNS: He was afebrile at 98.8, respirations 20, heart rate was in 118, blood pressure was 132 /63. GENERAL: He is trached. He does respond to when calling his name. CARDIOVASCULAR: S1, S2 present. No murmurs, rubs, or gallops. Tachycardia. LUNGS: Mild rhonchi at bilateral bases. ABDOMEN: Soft. Bowel sounds are present x2. Nontender. NEUROLOGIC: Again, neurovascular jean, he does not follow anything except he turns his head when you call his name and does have some nonpurposeful movements. His overall prognosis is really poor; however, he will be transferred to an LTAC facility for recover y. While he was in the hospital, he was treated for aspiration pneumonia. His antibiotics were stop ped on 01/18/2018.
== END 2018-01-18 14:51 | DRG 4 ==
LOC: ERS 08:33 → CCU 11:55
PROVIDERS: ADMIT Internal Medicine; ATTEND Internal Medicine
PROC: 02HV33Z Insertion of Infusion Device into Superior Vena Cava, Percutaneous Approach (ICD-10-PCS; principal; 2017-12-30)
PROC: 5A1955Z Respiratory Ventilation, Greater than 96 Consecutive Hours (ICD-10-PCS; 2017-12-30)
PROC: 3E033XZ Introduction of Vasopressor into Peripheral Vein, Percutaneous Approach (ICD-10-PCS; 2017-12-30)
PROC: 02HV33Z Insertion of Infusion Device into Superior Vena Cava, Percutaneous Approach (ICD-10-PCS; 2018-01-09)
PROC: 0B113F4 Bypass Trachea to Cutaneous with Tracheostomy Device, Percutaneous Approach (ICD-10-PCS; 2018-01-12)
PROC: 0DH63UZ Insertion of Feeding Device into Stomach, Percutaneous Approach (ICD-10-PCS; 2018-01-12)
DX: A41.9 Sepsis, unspecified organism (principal); J96.02 Acute respiratory failure with hypercapnia; J96.01 Acute respiratory failure with hypoxia; J69.0 Pneumonitis due to inhalation of food and vomit; G93.41 Metabolic encephalopathy; J44.1 Chronic obstructive pulmonary disease with (acute) exacerbation; F11.23 Opioid dependence with withdrawal; E11.9 Type 2 diabetes mellitus without complications; Z99.81 Dependence on supplemental oxygen; G47.33 Obstructive sleep apnea (adult) (pediatric); Z66 Do not resuscitate; R45.1 Restlessness and agitation; M19.90 Unspecified osteoarthritis, unspecified site; Z87.891 Personal history of nicotine dependence; Z79.84 Long term (current) use of oral hypoglycemic drugs; Z88.0 Allergy status to penicillin; Z85.46 Personal history of malignant neoplasm of prostate
CPT/HCPCS: 36415; 36416; 36556; 36569; 51702; 70450; 70553; 71045; 72125; 80048; 80053; 80202; 80306; 81001; 81003; 82330; 82553; 82803; 82805; 83605; 83735; 83880; 84100; 84484; 85025; 87040; 87086; 87389; 93005; 94002; 94003; 94640; 94760; 96365; 96366; 96375; A4216; A9579; C1751; C9113; J0360; J0690; J0692; J1120; J1650; J1956; J2001; J2060; J2250; J2270; J2405; J2704; J2920; J3010; J3370; J3411; J3480; J7050; J7620; J7626